=== PATIENT | male | born 1960 | race Caucasian/White ===

== ENCOUNTER → 2020-05-21 16:00 | Outpatient (BNVA) | payer OTHER, SELFPAY | PROVIDERS: Referring Provider Internal Medicine; Visit Provider Orthopaedic Surgery | DX: M25.562 Pain in left knee (principal) | CPT/HCPCS: 73560; 73565 ==

== ENCOUNTER → 2020-05-24 13:14 | Outpatient (BNVA) | payer OTHER, SELFPAY | PROVIDERS: Visit Provider Orthopaedic Surgery | DX: Z11.59 Encounter for screening for other viral diseases (principal); M23.204 Derangement of unspecified medial meniscus due to old tear or injury, left knee | CPT/HCPCS: 87635 ==

== ENCOUNTER 2020-05-30 07:14 | Day surgery (SDC) | payer OTHER, SELFPAY ==
[2020-05-29 11:51] VITALS: BMI 31.1
[2020-05-30] VITALS (11 sets, daily range): BP systolic 95–142; BP diastolic 58–89; PULSE 54–71; RESP 11–20; TEMP 36.1–36.5; O2SAT 93–100
[2020-05-30] MEDS: sodium chloride 0.9% 1,000 ML 30 ML IV (07:53)
--- NOTE | 2020-05-30 09:26 | ANES.PREANE2 ---
Pre-Anesthetic Assessment Pre-Anesthetic Assessment: Height/Weight: Height 1.73 m Weight 92.986 kg Temp Pulse Resp BP Pulse Ox 97.7 F 71 18 142/88 97 05/30/20 07:34 05/30/20 07:34 05/30/20 07:34 05/30/20 07:34 05/30/20 07:34 Preop Diagnosis: Left medial meniscal tear Proposed Procedure: Operation Date: 05/30/20 08:50 Proposed Procedures p Diagnostic Left Knee Arthroscopy 37820 M23.204 USE [facility](Left) - Nick Martin MD Familial anesthetic complications: None Was Beta Thierry taken within 24 hours: N/A Last intake: Intake Last Liquid Date 05/29/20 Last Liquid Time 23:30 Last Solid Date 05/29/20 Last Solid Time 23:30 Social: Social History: No alcohol and No tobacco Exam: Pre-Anes Outpt Exam: alert, oriented x 3, clear to auscultation bilaterally and regular rate & rhythm Airway: Cervical ROM: WNL MP: 3 Dentition: False Anesthetic Plan: ASA status: 1 Anesthesia: General Risk of > 500 ml blood loss (7ml/kg in children): No Meds/Allergies Current Medications: Current Medications Generic Name Dose Route Start Last Admin Trade Name Freq PRN Reason Stop Dose Admin Sodium Chloride 1,000 mls @ 30 ml s/hr 05/30/20 07:30 05/30/20 07:53 Sodium Chloride 0.9% IV 05/31/20 07:29 30 mls/hr .Q24H LIA Administration PFSH Anesthesia PFSH: Social History (Updated 05/21/20 @ 15:36 by Javier Cisneros LPN) Smoking and tobacco status: never smoked Alcohol intake: never Data Anesthesia Cardiac Studies: No Data to Display
--- NOTE | 2020-05-30 09:28 | W.PM.OPSUD ---
Surgery/Procedure H&P Update DATE OF PROCEDURE: May 30, 2020 DATE H&P PERFORMED: 05/21/20 PREOP DIAGNOSIS: Left medial meniscal tear PLANNED PROCEDURE: Operation Date: 05/30/20 08:50 Proposed Procedures p Diagnostic Left Knee Arthroscopy 59151 M23.204 [facility] - Nick Martin MD
[2020-05-30] MEDS: morphine 4 mg/mL SDV 1 mL 8 MG XX (09:47)
--- NOTE | 2020-05-30 10:25 | SUR.PHASEI ---
1023 PATIENT TO PACU FROM OR. RR EVEN AND UNLABORED. SPO2 98% ON SIMPLE MASK AT 8L. ORAL AIRWAY IN PLACE. DRESSING, CDI TO LEFT KNEE WITH CL WRAP IN PLACE. LEFT PEDAL PULSE INTACT.
--- NOTE | 2020-05-30 10:27 | PM.OP ---
Operative Report Date of procedure: May 30, 2020 Pre-op Diagnosis: Left medial and lateral meniscal tear, chondromalacia left knee, history anterior cruciate ligament reconstruction Post-op diagnosis: same Post-op Findings: The patient had degenerative tearing in the central 30% of the medial meniscus. He had a absent posterior horn of his lateral meniscus. Exposed subchondral bone was identified over the lateral tibial plateau and clear thinning was identified over the lateral femoral condyle. He had fibrillation and attenuation of the anterior cruciate ligament graft however it seemed to provide sufficient restraint anterior translation Procedure Done: Arthroscopic partial left medial and lateral meniscectomy Pathology: none sent Surgeon: Nick Martin Anesthesia: General Estimated blood loss (mL): 2 Complications: None Findings: The patient had a previous complete lateral meniscectomy of the posterior horn of the lateral meniscus. He had exposed subchondral bone of the lateral tibial plateau and significant thinning of the cartilage over the lateral femoral condyle. He had degenerative tearing of the central 30% of the medial meniscus and generalized thinning over the medial femoral condyle. His trochlea was healthy but fissures and flaps were seen centrally over the patella Condition: stable Disposition: PACU Procedure: Mr. Blum was taken to the operating room and given a general anesthesia. He is given 2 g of Ancef. His knee was prepped and infiltrated with 30 cc of 0.5% Marcaine with epi and 10 mg of morphine. His knee was draped in the usual fashion. A timeout was performed. The knee was initially entered through a standard medial and lateral portals. Initial attention was paid to the medial meniscus. The leg was provided with a valgus force revealing tearing of the central 30% lateral meniscus. An incisor shaver was introduced followed by a [employer]hew Werewolf probe removing approximately 30 to 40% of the degenerative central portion of the medial meniscus. Areas of fibrillation and fraying were seen over the medial femoral condyle. The condyle was lightly debrided back with the incisor shaver however no exposed subchondral bone was identified. The anterior cruciate ligament was inspected although was found to be slightly fibrillated it was generally intact and on drawer testing provided a restraint with anterior translation. The knee was then placed in a liogah-md-efob position. The lateral meniscus was inspected revealing a absent posterior horn. Small flap from the middle third was abraded back to the rim. The rim was then cleaned up with the Gr [employer] Nephew Werewolf probe. There is no unstable cartilage surrounding the areas of exposed subchondral bone over the lateral tibial plateau. Areas of fibrillation fraying over the lateral femoral condyle were lightly debrided back with the Gr [employer] Nephew Werewolf probe revealing marked thinning of the cartilage but no exposed subchondral bone. The knee was irrigated with saline. Portals were closed with 3-0 Prolene. Sterile dressings were applied. The patient was extubated and taken to recovery room in stable condition.
--- NOTE | 2020-05-30 10:44 | SUR.PHASEI ---
1043 ORAL AIRWAY REMOVED. SPO2 100% ON SIMPLE MASK AT 8L.
--- NOTE | 2020-05-30 11:02 | SUR.PHASEI ---
1100 PATIENT TO OPS. PAIN 2/10. DRESSING, CDI TO LEFT KNEE.
--- NOTE | 2020-05-30 12:45 | ANE.PACU2 ---
Inpatient post-anesthesia follow up: Airway intact: Yes Vital signs: Temperature 97.0 F Pulse Rate 67 Respiratory Rate 18 Blood Pressure 131/89 Pulse Oximetry 95 Oxygen Delivery Me thod Room Air Oxygen Flow Rate 8 Fraction of Inspir ed Oxygen Hydration adequate: Yes Nausea and vomiting: No Pain level: 1 Mental status: Baseline
== END 2020-05-30 12:45 | disposition home or self-care (01) ==
PROVIDERS: Visit Provider Orthopaedic Surgery
PROC: (CPT 29870; principal; 2020-05-30 08:50)
DX: S83.242A Other tear of medial meniscus, current injury, left knee, initial encounter (principal); S83.282A Other tear of lateral meniscus, current injury, left knee, initial encounter; X58.XXXA Exposure to other specified factors, initial encounter
CPT/HCPCS: 29880; 12345; 96365; J0690; J1100; J2250; J2270; J2405; J2704; J3010; J3490; J7030

== ENCOUNTER 2021-11-30 16:48 | Emergency (ER) | payer OTHER, SELFPAY ==
[2021-11-30 17:49] VITALS: BP 152/84; PULSE 81; RESP 14; TEMP 36.6; O2SAT 97; BMI 32.6
--- NOTE | 2021-11-30 18:09 | CTR_ITS ---
PROCEDURE INFORMATION: Exam: CT Head Without Contrast Exam date and time: 11/30/2021 6:21 PM Age: 61 years old Clinical indication: Patient HX: C/O intermittent episodes of dizziness TECHNIQUE: Imaging protocol: Computed tomography of the head without contrast. Radiation optimization: All CT scans at this facility use at least one of these dose optimization techniques: automated exposure control; mA and/or kV adjustment per patient size (includes targeted exams where dose is matched to clinical indication); or iterative reconstruction. COMPARISON: No relevant prior studies available. RADIATION DOSE METRICS: Total DLP (mGy-cm): 833.4 FINDINGS: Brain: There is no acute intracranial hemorrhage or abnormal extra-axial fluid collection identified. There is no intracranial mass effect or shift of midline structures. The morales-white differentiation is preserved throughout. Cerebral ventricles: There is no sulcal or ventricular effacement. The basilar cisterns are open. No hydrocephalus. Paranasal sinuses: There is mild sinus mucosal disease, with no air-fluid level identified. Mastoid air cells: There is no mastoid effusion detected. Vasculature: Atherosclerotic vascular disease is noted at the level of the skull base. Bones/joints: No calvarial fracture or destructive osseous lesions are seen. Soft tissues: Unremarkable. CT/CT head wo con* [id number] IMPRESSION: No acute intracranial pathology identified by CT.
--- NOTE | 2021-11-30 18:09 | ED_ITS ---
HPI - Dizziness General: Chief Complaint: Dizziness Stated Complaint: Asking for a CT Scan Time Seen by Provider: 11/30/21 17:59 History of Present Illness: HPI Narrative: Patient is a 61-year-old male comes to the ED with episodes of dizziness. Symptoms have been going on now for the past 3 weeks. Symptoms occur when he moves his head or puts his head in a certain position. When dizziness happens the episodes are brief and only last for couple minutes and he describes it as the room is spinning. He reports having multiple brief episodes of daily. Sometimes during these episodes he will have just a mild headache, but not always. He saw his PCP at the [facility] and they told him that he needs to get head CT scan and send him home with meclizine which has not helped. Patient is not having any dizziness here in the ED. denies any chest pain, shortness of breath, nausea/vomiting vision changes, numbness or tingling to 1 side of his body or any weakness to 1 side of his body. Associated symptoms: Denies chest pain, chills, headache(s), nausea, nasal congestion, palpitations, syncope or vomiting Associated neuro symptoms: Deny numbness in extremities Review of Systems Const: Denies: fever(s), chills or fatigue Eyes: Denies: change in vision or eye discomfort ENMT: Denies: throat pain, odynophagia, nasal discharge or nasal congestion Card: Denies: chest pain, palpitations, edema, swelling of feet/ankles, syncope, dyspnea on exertion or orthopnea Resp: Denies: dyspnea, productive cough or non-productive cough GI: Denies: abdominal pain, nausea, vomiting, diarrhea, constipation or hematochezia : Denies: flank pain, difficulty urinating, dysuria or hematuria Musc: Denies: neck pain, back pain or extremity swelling Skin/Breast: Denies: rash or new lesions Neuro: Reports: vertigo; Denies: headache(s), numbness in extremities or weakness in extremities PFS ED PFSH: Medical History No pertinent family history Surgical History No pertinent past surgical history Social History Smoking and tobacco status: never smoked Alcohol intake: never Physical Exam Const: COMMON NORMALS: no acute distress, patient oriented x3 and alert GENERAL APPEARANCE: cooperative and comfortable HENMT: COMMON NORMALS: normocephalic HEAD & SCALP: normocephalic MOUTH: Normal oral and palatal mucosa present THROAT: posterior oropharynx normal and uvula midline Eye: COMMON NORMALS: Equal, round and reactive pupils present, EOMs intact bilaterally and conjunctivae normal CONJUNCTIVA: Yes conjunctivae normal PUPIL: Yes Equal, round and reactive pupils present Neck/C-Spine: COMMON NORMALS: supple GENERAL: Yes normal visual inspection Resp: COMMON NORMALS: normal respiratory effort, No retractions, No use of accessory muscles and clear to auscultation bilaterally AUSCULTATION: clear to auscultation bilaterally Cardio: COMMON NORMALS: regular rate, regular rhythm, S1 normal heart sound present, S2 normal heart sound present, No gallops present (Cardio), No clicks present (Cardio), No murmurs present (Cardio) and Peripheral pulses 2+ throughout RATE: regular rate RHYTHM: regular rhythm HEART SOUNDS: S1 normal heart sound present and S2 normal heart sound present PERIPHERAL PULSES: Peripheral pulses 2+ throughout GI: COMMON NORMALS: Normal to inspection, nondistended, normoactive bowel thiago nds present, Soft to palpation, non-tender and no masses PALPATION: Yes Soft to palpation : COMMON NORMALS: Yes no CVA tenderness BLADDER/KIDNEY EXAM: Yes no CVA tenderness Back/Pelvis: COMMON NORMALS: no CVA tenderness Extremity: COMMON NORMALS: normal to inspection Neuro: COMMON NORMALS: patient oriented x3, CN's II-XII intact bilaterally, moves all extremities, no focal motor deficits and no sensory deficits noted SENSORIUM/ORIENTATION: Yes alert SENSORY EXAM: Yes extremities (intact) MOTOR EXAM: 5/5 motor strength present throughout Skin: GENERAL SKIN EXAM: dry skin Course Vital Signs: Vital signs: Vital Signs Temperature 97.8 F 11/30/21 17:49 Pulse Rate 81 11/30/21 17:49 Respiratory Rate 16 11/30/21 19:49 Blood Pressure 152/84 11/30/21 17:49 Pulse Oximetry 97 11/30/21 17:49 [facility] - Dizziness Medical Decision Making Patient is a 61-year-old male comes to the ED with episodes of dizziness that have been going on for the past 3 weeks. Episodes of dizziness are brief and occur when he puts his head in a certain position. They only last for maybe 2 to 3 minutes at the most and he describes the dizziness as room spinning. Denies any other symptoms such as chest pain, syncope or neurological deficits. He is not having any active dizziness here in the ED. Vitals are stable and exam is benign. Patient appears in no acute distress or pain. No neurodeficits noted. CT of head showed no acute findings. Given patient's history and exam he appears to be suffering from benign paroxysmal positional vertigo. He was stable for discharge home and I sent him home with instructions on exercises and movements he can do to help with episodes of BPPV. Return to ED precautions given. Told to follow-up with his PCP within the next week for reevaluation. Patient understood and agreed with plan. Lab Data Radiology Impressions Head CT 11/30/21 18:09 IMPRESSION: No acute intracranial pathology identified by CT. Discharge Plan Discharge Patient Disposition: Home Clinical Impression: Benign paroxysmal positional vertigo Qualifiers: Laterality: unspecified laterality Qualified Code(s): H81.10 - Benign paroxysmal vertigo, unspecified ear Condition: Stable Prescriptions: No Action No Known Home Medications 0RF hydrocodone-acetaminophen 5-325 mg tablet 1 tab PO Q4H Qty: 30 0RF Discharge Orders: Discharge ED (Routine); Ordered 11/30/21 Ordered By: Malik Doss Discharge Diet: Regular Discharge Activity: Resume usual activity Patient Instructions: Benign Paroxysmal Positional Vertigo (DC) Activity Restrictions/Additional Instructions: Follow-up with medical provider as directed in the next 3 to 5 days for reevaluation. Continue taking all home medications as previously prescribed. Return to the ER or your medical provider if condition worsens. Please read and understand discharge instructions. Thank you for choosing [facility] for your healthcare needs today. Please realize this is an emergency room and that we are providing you with a medical screening exam and this may not be complete and all inclusive of all the testing and or work up that you may need to determine your ailment or severity of your illness. It is very important that you follow up as instructed or that you return to the Emergency Department should you have concerns or if your condition changes or worsens in any way. Coding Level of Care Code ED [employer] Librarian for Phil Ortiz Exam Comprehensive
[2021-11-30 19:49] VITALS: RESP 16
== END 2021-11-30 19:50 | disposition home or self-care (01) ==
PROVIDERS: Emergency Provider Physician Assistant
DX: H81.10 Benign paroxysmal vertigo, unspecified ear (principal)
CPT/HCPCS: 70450; 99282

== ENCOUNTER 2023-07-29 13:13 | Emergency (ER) | payer OTHER, SELFPAY ==
[2023-07-29 13:43] VITALS: BP 136/82; PULSE 66; TEMP 36.7; O2SAT 97; BMI 31.1
--- NOTE | 2023-07-29 13:51 | XRR_ITS ---
PROCEDURE INFORMATION: Exam: XR Right Hand Exam date and time: 07/29/2023 3:07 PM Age: 62 years old Clinical indication: Pain; Hand; Right TECHNIQUE: Imaging protocol: Radiologic exam of the right hand. Views: 3 or more views. COMPARISON: No relevant prior studies available. FINDINGS: Bones/joints: No fracture or dislocation. Mild degenerative changes. Soft tissues: No acute findings. XR/XR hand RT min 3V* [id number] IMPRESSION: Mild degenerative changes without acute findings.
--- NOTE | 2023-07-29 14:56 | W.ED.EXTPRO ---
HPI - Extremity Problem General: Chief complaint: Extremity Problem,Nontraumatic Stated complaint: va sent, thum locking up/sore Time Seen by Provider: 07/29/23 14:56 History of Present Illness: 62-year-old male patient was referred to the emergency room from the [facility] medical office for concerns of IP joint of the right thumb locking up. Patient appears nontoxic. Patient appears in no acute distress. Patient denies any chronic medical problems or routine medicines. Review of Systems General: Reports: 10 or more systems reviewed and unremarkable except in HPI and below Musc: Reports: joint pain (Right hand IP joint thumb) [facility] ED PFSH: Medical History No pertinent family history Surgical History No pertinent past surgical history Social History Smoking and tobacco/nicotine status: never used tobacco/nicotine Alcohol intake: never Substance/Drug Use: never Physical Exam Const: COMMON NORMALS: alert HENMT: COMMON NORMALS: atraumatic HEAD & SCALP: atraumatic Neck/C-Spine: COMMON NORMALS: full ROM Resp: COMMON NORMALS: normal respiratory effort Cardio: COMMON NORMALS: regular rate RATE: regular rate GI: COMMON NORMALS: non-tender Extremity: RIGHT UPPER EXTREMITY: Yes hand & digits (IP joint catches through range of motion.) Right hand and digits: Yes inspection (No redness or induration or significant swelling), Yes palpation, Yes ROM exam and Yes neurovascular exam Neuro: SENSORIUM/ORIENTATION: Yes alert Skin: COMMON NORMALS: turgor normal GENERAL SKIN EXAM: turgor normal Course Vital Signs: Vital signs: Vital Signs Temperature 98.1 F 07/29/23 13:43 Pulse Rate 66 07/29/23 13:43 Blood Pressure 136/82 07/29/23 13:43 Pulse Oximetry 97 07/29/23 13:43 Oxygen Delivery Me thod Room Air 07/29/23 13:43 MDM - Extremity (Nontraumatic) Medical Decision Making Patient comes in today for evaluation of right interphalanx joint due to locking during range of motion. On exam there is no redness or inflammation of the joint noted. Cap refill is intact. Sensation is intact. Patient does have a crepitus in the joint. Differential diagnosis includes but not limited to tendinitis, degenerative joint disease of the IP joint of the thumb, tenosynovitis. No signs of injury or illness is noted. X-ray of the hand notes degenerative changes in the joints. Reviewed exam with patient recommended follow-up with surgeon for further evaluation and treatment. Patient reported understanding agreed to plan. Patient be placed on naproxen for pain and inflammation. Lab Data Radiology Impressions Hand X-Ray 07/29/23 13:51 IMPRESSION: Mild degenerative changes without acute findings. All radiology interpretation(s) finalized by discharge Discharge Plan Discharge Patient Disposition: Home Clinical Impression: Thumb joint locking Condition: Stable Prescriptions: New naproxen 500 mg tablet 500 mg PO BID Qty: 30 0RF No Action hydrocodone-acetaminophen 5-325 mg tablet 1 tab PO Q4H Qty: 30 0RF Discharge Orders: Discharge ED (Routine); Ordered 07/29/23 Ordered By: Ramon Larson Discharge Diet: Usual diet Discharge Activity: Increase activity as tolerated Patient Instructions: Musculoskeletal Pain (ED) Activity Restrictions/Additional Instructions: Take naproxen 500 mg 2 times daily to help with pain and inflammation of the joint. Drink plenty of water and fluids. Use heat to the joint to help with discomfort. Gentle range of motion of the joint. Avoid forcing the joint. Case management will contact you regarding follow-up appointment with orthopedist office for further evaluation and treatment. Return to ED for new concerns. Coding Level of Care Code ED Call Center Dispatcher for Phil Ortiz
--- NOTE | 2023-07-29 15:14 | DCPLANNER ---
Message was sent to ortho on 07/29/23 at 4034. Clinic to contact patient.
== END 2023-07-29 15:35 | disposition home or self-care (01) ==
PROVIDERS: Emergency Provider Nurse Practitioner Family
DX: M24.841 Other specific joint derangements of right hand, not elsewhere classified (principal)
CPT/HCPCS: 73130; 99283

== ENCOUNTER 2024-09-25 09:06 | Inpatient (IN) | payer OTHER, SELFPAY ==
[2024-09-25] VITALS (9 sets, daily range): BP systolic 125–142; BP diastolic 74–99; PULSE 62–96; RESP 15–20; TEMP 36.4–37; O2SAT 94–97; BMI 31.1
--- NOTE | 2024-09-25 09:27 | XRR_ITS ---
PROCEDURE INFORMATION: Exam: XR Chest Exam date and time: 09/25/2024 9:38 AM Age: 63 years old Clinical indication: Cough and dyspnea and shortness of breath; Additional info: Dyspnea/cough TECHNIQUE: Imaging protocol: Radiologic exam of the chest. Views: 1 view. COMPARISON: No relevant prior studies available. FINDINGS: Lungs: Unremarkable. No consolidation. Pleural spaces: Unremarkable. No pleural effusion. No pneumothorax. Heart/Mediastinum: Unremarkable. No cardiomegaly. Bones/joints: Unremarkable. XR/XR chest 1V portable [id number] IMPRESSION: No acute findings.
--- NOTE | 2024-09-25 09:27 | ECG_ITS ---
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
--- NOTE | 2024-09-25 09:28 | ED_ITS ---
HPI - Chest Pain 2 General: Chief Complaint: Chest Pain Stated Complaint: sob, cp, sent from [place] Time Seen by Provider: 09/25/24 09:16 History of Present Illness: 61-year-old male presents emergency room with complaints of shortness of breath and chest pressure it has been ongoing for a month. He has no known history of coronary disease no history of any chronic respiratory disease he does not smoke no history of DVT or PE. No hemoptysis no productive cough no fever sweats or chills. He describes the chest sensation as being a pressure that does not radiate. He gets it most often with exertion. It is relieved by rest. Associated symptoms: Reports dyspnea; Deny abdominal pain or fever(s) Related Data Home Medications ?Medication ?Instructions ?Recorded ?Confirmed No Known Home Medications 09/25/2409/03 Allergies Allergy/AdvReac Type Severity Reaction Status Date / Time bee venom protein (honey bee) Allergy Unknown Verified 09/25/24 09:20 peppermint Allergy Unknown Verified 09/25/24 09:20 Review of Systems 2 Const: Denies: fever(s) or chills Card: Reports: chest pain Resp: Reports: dyspnea GI: Denies: abdominal pain : Denies: dysuria, urinary frequency or urinary urgency Musc: Denies: neck pain or back pain Skin/Breast: Denies: rash PFSH ED 2 PFSH: Medical History No pertinent family history Surgical History No pertinent past surgical history Social History Smoking and tobacco/nicotine status: never used tobacco/nicotine Alcohol intake: never Substance/Drug Use: never Physical Exam 2 Const: GENERAL APPEARANCE: cooperative ORIENTATION/CONSCIOUSNESS: Yes awake, Yes oriented to person, Yes oriented to place and Yes oriented to time HENMT: COMMON NORMALS: normocephalic, atraumatic and hearing grossly normal bilaterally HEAD & SCALP: normocephalic and atraumatic Resp: COMMON NORMALS: normal respiratory effort, No retractions, No use of accessory muscles and clear to auscultation bilaterally AUSCULTATION: clear to auscultation bilaterally Cardio: COMMON NORMALS: regular rate, regular rhythm and No murmurs present (Cardio) RATE: regular rate RHYTHM: regular rhythm GI: COMMON NORMALS: Soft to palpation and No hepatosplenomegaly present A USCULTATION: Yes normoactive bowel sounds PALPATION: Yes Soft to palpation, No Tenderness to palpation present (GI), No Guarding due to palpation present (GI) and Yes No hepatosplenomegaly present Extremity: COMMON NORMALS: normal to inspection, capillary refill normal, no clubbing, cyanosis or edema, no calf tenderness and no pedal edema Neuro: SENSORIUM/ORIENTATION: Yes oriented to person, Yes oriented to place and Yes oriented to time Skin: COMMON NORMALS: no rashes or lesions noted GENERAL SKIN EXAM: no rashes or lesions noted Course 2 Vital Signs: Vital signs: Vital Signs Temperature 98.2 F 09/25/24 09:15 Pulse Rate 64 09/25/24 14:08 Respiratory Rate 15 09/25/24 14:08 Blood Pressure 128/99 09/25/24 14:08 Pulse Oximetry 97 09/25/24 14:08 Oxygen Delivery Me thod Room Air 09/25/24 14:08 MDM - Chest Pain Medical Decision Making Patient having escalating angina she is noticing increasing shortness of breath chest discomfort relieved by rest exacerbated by exertion. It has been progressively more noticeable decreasing exercise tolerance when he does exert himself he is getting chest discomfort that he rates up to an 8 out of 10. He has no known history of heart disease does have some risk factors. EKG showed nonspecific ST changes but nothing acute he is not currently having any chest pain at this time his troponins trended negative. However given his risk factors and his description of very classic cardiac count sounding symptoms that have been escalating recommend that we place him on observation consult cardiology. Discussed with hospitalist and radiological metallurgist orders written Medical Records I reviewed the patient's medical records. Lab Data I reviewed the patient's lab results. 09/25/24 09:39 09/25/24 09:39 Radiology Impressions Chest X-Ray 09/25/24 09:27 IMPRESSION: No acute findings. Laboratory Results WBC 7.55 10^3/uL (3.29-11.43) 09/25/24 09:39 RBC 5.85 10^6/uL (3.85-5.65) H 09/25/24 09:39 Hgb 15.30 g/dL (11.27-16.99) 09/25/24 09:39 Hct 47.3 % (37-53) 09/25/24 09:39 MCV 80.9 fl (82-101) L 09/25/24 09:39 MCH 26.2 pg (27-33) L 09/25/24 09:39 MCHC 32.3 g/dL (30-55) 09/25/24 09:39 RDW 14.2 % (12.1-15.1) 09/25/24 09:39 Plt Count 183 10^3/cmm (157-399) 09/25/24 09:39 MPV 7.8 fL (7.4-10.4) 09/25/24 09:39 Neut % (Auto) 69.2 % 09/25/24 09:39 Lymph % (Auto) 18.3 % 09/25/24 09:39 [place] % (Auto) 10.3 % 09/25/24 09:39 Eos % (Auto) 0.9 % 09/25/24 09:39 Baso % (Auto) 0.9 % 09/25/24 09:39 Neut # (Auto) 5.22 10^3/uL (1.8-7.7) 09/25/24 09:39 Lymph # (Auto) 1.4 10^3/uL (0.8-4.8) 09/25/24 09:39 [place] # (Auto) 0.8 10^3/uL (0.2-0.9) 09/25/24 09:39 Eos # (Auto) 0.1 10^3/uL (0.0-0.8) 09/25/24 09:39 Baso # (Auto) 0.1 10^3/uL (0.0-0.1) 09/25/24 09:39 Nucleated RBC % (auto) 0 % 09/25/24 09:39 Nucleated RBCs # 0.0 /100WBC 09/25/24 09:39 Sodium 137 mmol/L (136-145) 09/25/24 09:39 Potassium 4.2 mmol/L (3.5-5.1) 09/25/24 09:39 Chloride 103 mmol/L (98-107) 09/25/24 09:39 Carbon Dioxide 24 mmol/L (22-29) 09/25/24 09:39 Anion Gap 14.2 (5-19) 09/25/24 09:39 BUN 12 mg/dL (8-23) 09/25/24 09:39 Creatinine 0.8 mg/dL (0.7-1.2) 09/25/24 09:39 GFR Calculation 98.0 mL/min (90-130) 09/25/24 09:39 Glucose 113 mg/dL (65-115) 09/25/24 09:39 Calculated Osmolality 285 mOsm/kg (285-295) 09/25/24 09:39 Calcium 8.8 mg/dL (8.5-10.5) 09/25/24 09:39 Total Bilirubin 0.3 mg/dL (0.15-1.2) 09/25/24 09:39 AST 10 U/L (0-40) 09/25/24 09:39 ALT 17 U/L (0-41) 09/25/24 09:39 Alkaline Phosphatase 87 U/L (40-130) 09/25/24 09:39 Troponin T Baseline 11 ng/L (0-15) 09/25/24 09:39 Troponin T 120 Minute 8.51 ng/L (0-15) 09/25/24 11:30 Delta Troponin T -2.49 ABS# (0-10) L 09/25/24 11:30 Total Protein 6.3 g/dL (6.6-8.7) L 09/25/24 09:39 Albumin 3.9 g/dL (3.5-5.2) 09/25/24 09:39 Globulin 2.4 g/dL (1.3-4.6) 09/25/24 09:39 Influenza A (PCR) Negative (Negative) 09/25/24 09:42 Influenza Type B (PCR) Negative (Negative) 09/25/24 09:42 RSV (PCR) Negative (Negative) 09/25/24 09:42 SARS-CoV-2 (PCR) Negative (Negative) 09/25/24 09:42 All radiology interpretation(s) finalized by discharge Discharge Plan Discharge Patient Disposition: Placed in Observation Clinical Impression: Stable angina Condition: Stable Prescriptions: No Action No Known Home Medications Print Language: Comoran Coding Level of Care Code ED Meatcutter for Phil Ortiz
[2024-09-25 09:45] LABS: Basophils # 0.1 10^3/uL (0.0-0.1); Basophils % 0.9 %; Eosinophils # 0.1 10^3/uL (0.0-0.8); Eosinophils % 0.9 %; Hematocrit 47.3 % (37-53); Lymphocytes # 1.4 10^3/uL (0.8-4.8); Lymphocytes % 18.3 %; Mean Corpuscular HGB Conc 32.3 g/dL (30-55); Mean Corpuscular Hemoglobin 26.2 pg (27-33); Mean Corpuscular Volume 80.9 fl (82-101); Mean Platelet Volume 7.8 fL (7.4-10.4); Monocytes # 0.8 10^3/uL (0.2-0.9); Monocytes % 10.3 %; Neutrophils # 5.22 10^3/uL (1.8-7.7); Neutrophils % 69.2 %; Nucleated Red Blood Cells % 0 %; Platelet Count 183 10^3/cmm (157-399); Red Blood Count 5.85 10^6/uL (3.85-5.65); Red Cell Distribution Width 14.2 % (12.1-15.1); White Blood Count 7.55 10^3/uL (3.29-11.43)
[2024-09-25 10:07] LABS: Alanine Aminotransferase 17 U/L (0-41); Albumin Level 3.9 g/dL (3.5-5.2); Alkaline Phosphatase 87 U/L (40-130); Anion Gap 14.2 (5-19); Aspartate Amino Transferase 10 U/L (0-40); Blood Urea Nitrogen 12 mg/dL (8-23); Calcium 8.8 mg/dL (8.5-10.5); Carbon Dioxide 24 mmol/L (22-29); Chloride 103 mmol/L (98-107); Creatinine Clr Calc Pharmacy 105.9424; Globulin 2.4 g/dL (1.3-4.6); Glucose 113 mg/dL (65-115); Osmolality Calculated 285 mOsm/kg (285-295); Potassium 4.2 mmol/L (3.5-5.1); Sodium 137 mmol/L (136-145); Total Bilirubin 0.3 mg/dL (0.15-1.2); Total Protein 6.3 g/dL (6.6-8.7)
[2024-09-25 10:09] LABS: Troponin(5th) Baseline 11 ng/L (0-15)
[2024-09-25 10:24] LABS: Influenza A NEGATIVE (Negative); Influenza B NEGATIVE (Negative); Respiratory Syncytial Virus Ce NEGATIVE (Negative); SARS-CoV-2 PCR NEGATIVE (Negative)
--- NOTE | 2024-09-25 11:27 | ECG_ITS ---
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
[2024-09-25 11:58] LABS: Troponin 5 2HR 8.51 ng/L (0-15)
[2024-09-25 11:59] LABS: Troponin 5 2HR Delta -2.49 ABS# (0-10)
--- NOTE | 2024-09-25 14:30 | USCV_ITS ---
Jitendra Blum Age: 63 Gender: M : 1960 Exam Date: 09/25/2024 15:50 Ordering Phys: Chemo Warren MD Technologist: USR [place]am [place] [facility] [place] Indication: DVT HISTORY: DVT. PROCEDURES: Venous duplex imaging was performed in bilateral lower extremities. Bilaterally, the common femoral, superficial femoral, profunda femoral, popliteal, posterior tibial, greater saphenous veins, and the peroneal trunk were identified and interrogated in the standard fashion. These veins were found to be easily compressible with spontaneous blood flow. No evidence of insufficiency or thrombus noted. Serial compression, augmentation maneuvers, and spectral Doppler flow evaluation were performed. FINDINGS: No evidence of DVT seen in any vessel visualized at this time. CONCLUSIONS No evidence of right lower extremity DVT. No evidence of left lower extremity DVT. Kale Toussaint MD (Electronically Signed) Final Date: 25 September 2024 17:12 S
--- NOTE | 2024-09-25 14:36 | PM.HP ---
Providers/Chief Complaint Admitting Physician: Chemo Warren MD Chief Complaint: sob, cp, sent from [place] History of Present Illness Jitendra Blum is a 63 year old male with a past medical history of right knee surgery, no hypertension no hyperlipidemia, no cardiovascular disease, no history of strokes, no history of diabetes, who presents [facility] for complaints of chest pain and shortness of breath. Patient tells me that he had his knee surgery back in June, he has been attending physical therapy, he tells me with physical therapy with exertion he has been experiencing increased shortness of breath and chest pain with exertion, improves with rest, no calf pain, no calf swelling no hemoptysis, he tells me that the chest pain has been increasing with frequency and intensity with exertion improving with rest, no rest pain Review of Systems Card: Reports: chest pain Resp: Reports: dyspnea Medications/Allergies Home Medications ?Medication ?Instructions ?Recorded ?Confirmed ?Last Taken ?Type No Known Home Medications 09/25/24 09/25/24 Unknown History Allergies Allergy/AdvReac Type Severity Reaction Status Date / Time bee venom protein (honey bee) Allergy Unknown Verified 09/25/24 09:20 peppermint Allergy Unknown Verified 09/25/24 09:20 PFSH Acute PFSH: Medical History No pertinent family history Surgical History No pertinent past surgical history Social History Smoking and tobacco/nicotine status: never used tobacco/nicotine Alcohol intake: never Substance/Drug Use: never Vitals/I&O/Wt Last Vital Signs Temp 98.2 F 09/25/24 09:15 Pulse 64 09/25/24 14:08 Resp 15 09/25/24 14:08 BP 128/99 09/25/24 14:08 Pulse Ox 97 09/25/24 14:08 O2 Del Method Room Air 09/25/24 14:08 Weight last 48 hrs Weight 92.986 kg Physical Exam Const: COMMON NORMALS: no acute distress and patient oriented x3 Eye: COMMON NORMALS: Equal, round and reactive pupils present and EOMs intact bilaterally Neck/C-Spine: COMMON NORMALS: no JVD Resp: COMMON NORMALS: normal respiratory effort, No retractions, No use of accessory muscles and clear to auscultation bilaterally AUSCULTATION: clear to auscultation bilaterally Cardio: COMMON NORMALS: regular rate, regular rhythm, S1 normal heart sound present and S2 normal heart sound present RATE: regular rate RHYTHM: regular rhythm HEART SOUNDS: S1 normal heart sound present and S2 normal heart sound present GI: COMMON NORMALS: Normal to inspection, nondistended, normoactive bowel sounds present, Soft to palpation and non-tender Extremity: COMMON NORMALS: no calf tenderness and no pedal edema Neuro: COMMON NORMALS: patient oriented x3, CN's II-XII intact bilaterally and moves all extremities Psych: COMMON NORMALS: mental status grossly normal Data 09/25/24 09:39 09/25/24 09:39 A&P Assessment and plan (1) Chest pain: Plan Chest pain -Serial EKGs, short troponins, telemetry monitoring -Aspirin, statin, Coreg -Cardiac echo -Drug screen, alcohol screen, D-dimer -Venous ultrasound -Full code -Lovenox for dvt prophylaxis PDMP PDMP Reviewed: Not Reviewed Attestations Medical Necessity Statement*: Patient requires hospitalization, inpatient, greater than 2 midnights for chest pain Diagnoses Chest pain R07.9
--- NOTE | 2024-09-25 14:55 | USCV_ITS ---
Jitendra Blum Age: 63 Gender: M : 1960 Exam Date: 09/25/2024 19:26 Ordering Phys: Chemo Warren MD Technologist: BRAYDEN [place] [facility] [place]: sob BP: 142 / 92 HR: 59 Rhythm: Sinus Technical Quality: Adequate MEASUREMENTS (Male / Female) Normal Values 2D ECHO LV Diastolic Diameter PLAX 3.9 cm 4.2 - 5.9 / 3.9 - 5.3 cm IVS Diastolic Thickness 1.7 cm 0.6 - 1.0 / 0.6 - 0.9 cm IVS Systolic Thickness 2.1 cm LVPW Diastolic Thickness 1.4 cm 0.6 - 1.0 / 0.6 - 0.9 cm LVPW Systolic Thickness 1.5 cm LVOT Diameter 1.9 cm LV Ejection Fraction 2D Teich 62.9 % LV Ejection Fraction MOD 4C 61.4 % LV Ejection Fraction MOD 2C 62.9 % LV Ejection Fraction 2C AL 64.9 % LA Diameter 4.0 cm Aorta at Sinotubular Diameter 3.4 cm IVC Diameter 1.8 cm M-MODE LA Ao Ratio MM 1.3 AV Cusp Separation MM 2.1 cm DOPPLER AV Peak Velocity 133.0 cm/s AV Area Cont Eq vti 2.0 cm squared AV Area Cont Eq pk 1.8 cm squared MV Peak Velocity 93.0 cm/s MV Area PHT 2.5 cm squared Mitral E to A Ratio 0.7 TR Peak Velocity 226.0 cm/s TR Peak Gradient 20.4 mmHg TV Peak E Velocity 41.0 cm/s PV Peak Velocity 133.0 cm/s FINDINGS Left Ventricle Left ventricle is normal in size. LV systolic function is normal with EF 55-60%. No regional wall motion abnormalities are seen. Grade 1 diastolic dysfunction Right Ventricle Normal in size and function Right Atrium Normal in size Left Atrium Normal in size Mitral Valve Structurally normal mitral valve. Trace mitral regurgitation. Aortic Valve Structurally normal aortic valve. No significant stenosis or regurgitation. Tricuspid Valve Mild tricuspid regurgitation. Pulmonary artery systolic pressure is normal. Pulmonic Valve Not well visualized Pericardium Normal Aorta Normal in size IVC Appears to be normal CONCLUSIONS LV systolic function is normal with EF of 55-60% Grade 1 diastolic dysfunction Trace mitral regurgitation Mild tricuspid regurgitation No comparison studies are available. Tripp Sánchez MD (Electronically Signed) Final Date: 26 September 2024 07:16 S
--- NOTE | 2024-09-25 15:08 | P.CONIM_ITS ---
<Statement entered by Tripp Sánchez M.D - 09/26/24 23:02> Patient was evaluated and cared for in conjunction with an advanced practice practitioner. I personally examined the patient and reviewed the chart and all pertinent data including imaging, telemetry, and laboratory results. I discussed the patient in detail with the advanced practice practitioner. Please see their note for complete consult note, results and agreed upon plan of care for the patient. GENERAL: Patient is alert and oriented HEART: Regular S1 and S2 LUNGS: Clear to auscultation bilaterally EXTREMITIES: Lower extremities with no edema Unstable angina Patient has unstable angina. Will proceed with coronary angiogram with possible PCI. NPO past midnight Thank you for involving us with care of this patient. Please call with questions Providers/Reason For Consult 2 Consulting Physician/Specialty*: Dr. Sánchez Reason for Consult*: Unstable angina Requesting Physician: Dr. Mata History of Present Illness History of Present Illness Jitendra Blum is a 63 year old male with a history of shortness of breath and chest pressure on exertion relieved with rest. He states this has been going on for about a month. He has no history of coronary disease or respiratory disease. He is a former smoker many years ago. No history of blood clots. No fever chills or bodyaches. He states that lately he has been getting progressive shortness of breath and chest pressure every time he exerts himself with minimal activity. He has no known family history of heart disease. He denies any significant personal health history. Denies diabetes, cholesterol issues, or hypertension. Viral panel was negative. Troponins are negative so far. We are awaiting the 6 hour troponin. He will be getting a d-dimer and lower extremity doppler to rule out DVT. EKG showed sinus rhythm without acute ST elevation or T wave abnormalities. Chest x-ray was unremarkable. He has an O2 sat of 96% on room air. Review of Systems 2 Narrative: Consitutional: denies fever, chills, body aches, or changes in appetite, denies abnormal weight loss Eyes: Denies changes in vision Card: Reports chest pressure at the center of the chest on exertion relieved with rest, palpitations, irregular heart rhythm, edema, syncope, shortness of breath, orthopnea, leg pain with exertion Resp: Reports shortness of breath on exertion relieved with rest, denies hemoptysis, denies cough GI: denies abdominal pain, denies nausea or voimting, denies blood in stool : denies blood in urine, denies dysuria Musc: Denies extremity pain, denies limited range of motion or recent injury Skin: Denies rash, lesions, or wounds, denies changes to skin color Neuro: Denies nubmness in extremities, h/a, s/s of stroke Gonzalo: Denies easy bruiding/bleeding Medications/Allergies Home Medications ?Medication ?Instructions ?Recorded ?Confirmed ?Last Taken ?Type No Known Home Medications 09/25/2409/03 Unknown History Allergies Allergy/AdvReac Type Severity Reaction Status Date / Time bee venom protein (honey bee) Allergy Unknown Verified 09/25/24 09:20 peppermint Allergy Unknown Verified 09/25/24 09:20 PFSH Acute 2 PFSH: Medical History No pertinent family history Surgical History No pertinent past surgical history Social History Smoking and tobacco/nicotine status: never used tobacco/nicotine Alcohol intake: never Substance/Drug Use: never Vitals/I&O/Wt Last Vital Signs Temp 98.2 F 09/25/24 09:15 Pulse 64 09/25/24 14:08 Resp 15 09/25/24 14:08 BP 128/99 09/25/24 14:08 Pulse Ox 97 09/25/24 14:08 O2 Del Method Room Air 09/25/24 14:08 Weight last 48 hrs Weight 205 lb Physical Exam 2 Narrative: General: No apparent distress, healthy appearing, well nourished HENMT: normoceophalic Neck: No carotid bruit bilaterally Muskuloskeletal: Full ROM Lymphatic: no lymphedema noted Respiratory: Normal respiratory effort, clear to auscultation bilaterally throughout all lung landeros, no use of accessory muscles Cardio: No JVD, regular rate, regular rhythm, S1 S2 normal, no murmurs, peripheral pulses 2+ radial palpated bilaterally GI: Normal to inspection, nondistended Extremities: Full ROM, normal, normal capillary refill, no cyanosis or edema Neuro: Alert and oriented x4, no focal motor deficits Psych: Affect normal, denies suicidal ideation, mental status grossly normal Skin: No rashes or lesions noted, no wounds Data 09/25/24 09:39 09/25/24 09:39 A&P Assessment and plan (1) Chest pain: Qualifiers: Chest pain type: other chest pain Qualified Code(s): R07.89 - Other chest pain (2) Unstable angina: Plan Patient has s/s of typical chest pain. Because of his untable angina, we recommend proceding with coronary angiogram once DVT/PE is ruled out. We will tentatively place him on the schedule for tomorrow morning. Patient is agreeable to this. Thank you, Dr. Warren, for allowing us to care for this very pleasant 63 year old gentleman. PDMP PDMP Reviewed: Not Reviewed Consult Attestations 2 Medical Necessity Statement: Deferred to primary. Coding Level of Care Code Acute Code for Chg Fwd Diagnoses Other chest pain R07.89 Chest pain type: other chest pain Unstable angina I20.0
--- NOTE | 2024-09-25 15:27 | ECG_ITS ---
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
[2024-09-25 15:28] LABS: Chol HDL Ratio 4.37 mg/dL (1.0-5.00); Cholesterol 188 mg/dL (0-200); HDL Cholesterol 43 mg/dL (60-100); LDL Cholesterol Calculated 119 mg/dL (50-129); LDL HDL Ratio 2.77 RATIO (0.00-3.22); NT Pro B Type Natriuretic Pept < 36 pg/mL (0-125); Thyroid Stimulating Hormone 2.24 uIU/mL (0.27-4.20); Triglycerides 131 mg/dL (0-150)
[2024-09-25 15:30] LABS: Alcohol Level < 10 mg/dL (0-10)
--- OUTSIDE RECORDS SUMMARY | 2024-09-25 15:30 | XMS_ITS | Encounter Summary ---
Author Name [facility] Organization [facility] Address [address], [place] [address] Care Team Providers Care Manager Ccu Name Role Phone COLLINSROLOLORENA Primary Care Provider Unavailabl e Selected Encounter This section includes the information on record at ID for the Encounter. Date/Time Encounter Type Encounter Description Reason Provider Source Aug 16, 2024 08:30 AM OFFICE O/P EST HI 40 MIN PRIMARY CARE/MEDICINE ICD-10-CM M25.561 Pain in right knee LORENA COLLINS IHE Encounter Template Text not used by ID Assessments - Encounter Diagnoses This section includes the primary and secondary diagnoses documented for the Encounter. Date/Time Primary/Secondary Diagnosis Diagnosis Name Provider Source Aug 16, 2024 08:58 AM PRIMARY Pain in right knee KARINALORENA [facility] Aug 16, 2024 08:58 AM SECONDARY Gastro-esophageal reflux disease without esophagitis LORENA COLLINS [facility] Aug 16, 2024 08:58 AM SECONDARY Hyperlipidemia, unspecified LORENA COLLINS [facility] Plan of Treatment: Future Appointments (+ 6 months) and Future Tests (+/- 45 days) The Plan of Treatment section includes future care activities for the patient from all ID treatmentfacilities. This section includes future appointments and future orders which are active, pending or scheduled. Future Appointments This section includes appointments that were scheduled to occur 6 months from the date of the Encounter, up to a maximum of 20 appointments. The data comes from all ID treatment facilities. Appointment Date/Time Appointment Type Appointme nt Facility Name Aug 30, 2024 11:15 AM AMBULATORY - NONE [facility] 2024 09:00 AM AMBULATORY - SURGERY [facility] Nov 15, 2024 10:00 AM AMBULATORY - NONE [facility] Jan 25, 2025 08:45 AM AMBULATORY - NONE [facility] Jan 25, 2025 10:00 AM AMBULATORY - MEDICINE [facility] Vital Signs: All taken on the encounter date This section contains inpatient and outpatient Vital Signs collected on the date of the Encounter. Date/Time Temperature Pulse Blood Pressure Respiratory Rate SP02 Pain Height Weight Body Mass Index Source Aug 16, 2024 08:36 AM 3 [facility] Aug 16, 2024 08:29 AM 97.7 78 142/82 18 96 0 68 230 35 [facility] Social History: Smoking Status (Most current) and Tobacco Use (All prior to encounter date) This section includes the most current, and the historical, smoking and tobacco- related health factors from the ID facility where the Encounter took place. Current Smoking Status This section includes the most current smoking, or tobacco-related health factor, from the ID facility where the Encounter took place. Date/Time Current Smoking Status Comment Facil ity Feb 23, 2024 01:00 PM VA-TOBACCO QUIT 15 YRS OR MORE [facility] Tobacco Use History This section includes a history of the smoking, or tobacco-related health factors, that were collected on or before the date of the Encounter. The data comes from the ID facility where the Encounter took place. Date/Time Smoking Status/Tobacco Use Comment F acility Feb 23, 2024 01:00 PM VA-TOBACCO QUIT 15 YRS OR MORE [facility] Nov 25, 2022 07:30 AM VA-TOBACCO NEVER USED [facility] Aug 11, 2021 01:00 PM VA-TOBACCO NEVER USED [facility] Feb 29, 2020 11:02 AM VA-TOBACCO FORMER USER [facility] Feb 29, 2020 11:02 AM VA-TOBACCO QUIT 15 YRS OR MORE [facility] Oct 31, 2018 04:26 PM V16 TOBACCO USE SCREEN [facility] Oct 31, 2018 04:26 PM VA-TOBACCO FORMER USER [facility] Oct 31, 2018 04:26 PM VA-TOBACCO QUIT 15 YRS OR MORE [facility] Mar 24, 2018 07:49 AM V16 LIFETIME NON-TOBACCO USER [facility] Mar 24, 2018 07:49 AM V16 TOBACCO USE SCREEN [facility] Mar 23, 2017 07:40 AM V16 LIFETIME NON-TOBACCO USER [facility] Mar 23, 2017 07:40 AM V16 TOBACCO USE SCREEN [facility] Mar 20, 2016 08:30 AM V16 LIFETIME NON-TOBACCO USER [facility] Mar 20, 2016 08:30 AM V16 TOBACCO USE SCREEN [facility] Jan 24, 2015 09:08 AM V16 LIFETIME NON-TOBACCO USER [facility] Jan 24, 2015 09:08 AM V16 TOBACCO USE SCREEN [facility] Nov 23, 2013 08:35 AM V16 TOBACCO CESSATION >7 YEARS [facility] Nov 23, 2013 08:35 AM V16 TOBACCO USE SCREEN [facility] Nov 29, 2012 09:12 AM V16 LIFETIME NON-TOBACCO USER [facility] Nov 29, 2012 09:12 AM V16 TOBACCO USE SCREEN [facility] Nov 09, 2011 09:39 AM V16 TOBACCO CESSATION >7 YEARS [facility] Nov 09, 2011 09:39 AM V16 TOBACCO USE SCREEN [facility] Nov 10, 2010 09:16 AM V16 TOBACCO CESSATION >7 YEARS [facility] Nov 10, 2010 09:16 AM V16 TOBACCO USE SCREEN [facility] Nov 15, 2009 10:29 AM V16 TOBACCO CESSATION >7 YEARS [facility] Nov 15, 2009 10:29 AM V16 TOBACCO USE SCREEN [facility] Nov 28, 2008 08:56 AM V16 TOBACCO CESSATION >7 YEARS [facility] Nov 28, 2008 08:56 AM V16 TOBACCO USE SCREEN [facility] Jul 11, 2007 08:53 AM V16 TOBACCO CESSATION >7 YEARS [facility] Jul 11, 2007 08:53 AM V16 TOBACCO USE SCREEN [facility] December 03, 2006 08:57 AM V16 TOBACCO CESSATION >7 YEARS [facility] December 03, 2006 08:57 AM V16 TOBACCO USE SCREEN [facility] May 27, 2006 10:53 AM V16 TOBACCO CESSATION > 12 MONTH S [facility] May 27, 2006 10:53 AM V16 TOBACCO USE SCREEN [facility] Jan 12, 2003 08:53 AM LIFETIME NON-TOBACCO USER [facility] Jul 07, 2001 10:12 AM TOBACCO CESSATION: >10 YEARS [facility] Jan 05, 2001 12:50 PM TOBACCO CESSATION: >10 YEARS [facility] Encounter Notes: All associated encounter notes This section contains the clinical notes associated to the Encounter. Date/Time Encounter Note(s) Provider Source Aug 16, 2024 08:58 AM MEDICATION MGT NOTE: LOCAL TITLE: MEDICATION RECONCILIATION (PROVIDER) STANDARD TITLE: MEDICATION MGT NOTE DATE OF NOTE: AUG 16, 2024@08:58 ENTRY DATE: AUG 16, 2024@08:58:54 AUTHOR: LORENA COLLINS EXP COSIGNER: URGENCY: STATUS: COMPLETED Medication Reconciliation COMPLETED (Outpatient): NO medication additions, deletions, dosage changes OR duplications were identified. This Medication Reconciliation note and Patient Medication Information Cover Sheet were reviewed with the patient and/or caregiver and all questions answered. A copy of this note was given to or mailed to patient and/or caregiver at the end of this visit. Remote and Local Allergies: FACILITY ALLERGY/ADR -------- [facility] [place] [facility] [place] [facility] [place] [facility] [place] [facility], [place] [address] [facility] NO KNOWN ALLERGIES A list of active and pending outpatient prescriptions dispensed from this [facility] and dispensed remotely from another ID or [facility] facility as well as local, pending and active inpatient orders, local clinic medications, locally documented non-VA medications, and local prescriptions that have or been discontinued in the past 90 days has been generated below. If the list for review does not include a component, then it was not applicable to this patient. Active Inpatient, Outpatient and Clinic Medications (including Supplies): Active Outpatient Medications Status 1) CARBOXYMETHYLCELLULOSE NA 0.5% OPH SOLN INSTILL 1 DROP IN ACTIVE EACH EYE FOUR TIMES DAILY 2) HYDROPHILIC (EQV EUCERIN) TOP CREAM APPLY SMALL AMOUNT ACTIVE (S) TOPICALLY FOUR TIMES DAILY NEEDED Indication: TO SOFTEN THE SKIN 3) MELATONIN 3MG CAP/TAB TAKE TWO BY MOUTH ONCE DAILY ACTIVE Indication: FOR SLEEP 4) NYSTATIN [id number] UNT/ML SUSP TAKE 5 ML BY MOUTH FOUR TIMES ACTIVE DAILY SWISH FOR TWO MINUTES AND SPIT 4 TIMES PER DAY. DO NOT SWALLOW. Indication: FOR FUNGAL INFECTION Active Non-VA Medications Status 1) Non-VA LORATADINE 10MG TAB 10MG MOUTH ONCE DAILY NEEDED ACTIVE 2) Non-VA NON-VA DRUG ASSESSMENT DONE CAP/TAB MOUTH ACTIVE 3) Non-VA OFLOXACIN 0.3% OPH SOLN 1 DROP RIGHT EYE FOUR TIMES ACTIVE DAILY 7 Total Medications No Active Remote Medications for this patient /es/ LORENA COLLINS MD [place] Primary Care Physician Signed: 08/16/2024 08:59 LORENA COLLINS [facility] Aug 16, 2024 08:38 AM PRIMARY CARE PHYSICIAN NOTE: LOCAL TITLE: PRIMARY CARE/PROVIDER STANDARD TITLE: PRIMARY CARE PHYSICIAN NOTE DATE OF NOTE: AUG 16, 2024@08:38 ENTRY DATE: AUG 16, 2024@08:38:22 AUTHOR: LORENA COLLINS EXP COSIGNER: URGENCY: STATUS: COMPLETED PT CONFIRMED HIS IDENTITY VIA HIS FULL NAME, DATE AND SOCIAL SECURITY NUMBER.VERBAL CONSENT OBTAINED. CHIEF COMPLAINT: ANNUAL VISIT BP: 142/82 (08/16/2024 08:29) Pain: 0 (08/16/2024 08:29) Height: 68 in [172.7 cm] (08/16/2024 08:29) Weight: 230 lb [104.33 kg] (08/16/2024 08:29) Pulse: 78 (08/16/2024 08:29) Respiration: 18 (08/16/2024 08:29) Temperature: 97.7 F [36.5 C] (08/16/2024 08:29) BMI: AUG 16, 2024@08:29:16 35.0 08/16/24 @ 0829 PULSE OXIMETRY: 96 SUBJECTIVE: 6 month exam, no labs today -no cc pcp -cc ortho, recent right knee replacement Jun 27, currently doing PT three times a week, using a cane -med list up to date -repeat b/p 132/88 HPI: 63 year old MALE presents to the [facility]. 1. ALLERGIC RHINITIS - STABLE ON LORATIDINE 2. HYPERLIPIDEMIA - SLIGHTLY HIGH, DISCUSSED DIET, DOES NOT WANT STATIN 3. FATIGUE - DOING BETTER TAKES MELATONIN NEEDED 4. CHRONIC RIGHT KNEE PAIN - recent right knee replacement Jun 27, currently doing PT three times a week, using a cane NON ID PROVIDERS: -no cc pcp -cc ortho, recent right knee replacement Jun 27, currently doing PT three times a week, using a cane LABS REVIEWED AT VISIT, INFORMATION GIVEN ON HOW TO ACCESS [employer] TO REVIEW LABS FURTHER. 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 [facility] [facility] [place] MARITAL HISTORY:m OCCUPATION: CHILDREN:1 SMOKING:no ALCOHOL:no DRUGS:No HINDUISM:UNKNOWN/NO PREFERENCE STD HISTORY:No HOMELESS: No PAST MEDICAL HISTORY: Brief Problem List: 1. Pain of right knee joint 07/25 HAD R TKR REFERRED TO PT 2. Exposure to potentially hazardous substance (SCT [id number]) Entered automatically through [facility] Problem List documentation program 3. Vertigo 01/21 REFERRED TO NEUROLOGY 02/20 MRI BRAIN NL 4. Trigger finger 01/21 RIGHT INDEX FINGER - SENT TO HAND SPECIALIST 5. Pain radiating to left shoulder 02/19 Left rotator cuff tear referred to ortho 6. Intermittent alternating exotropia 7. Erectile dysfunction 8. Osteoarthritis of knee 9. Osteoarthritis of shoulder 10. Foot pain 11. Low back pain 12. Hyperlipidemia REFUSES STATIN 13. Gastroesophageal reflux disease without esophagitis 14. Osteoarthritis (SNOMED CT 920949679) 15. Insomnia 16. Foot pain (SNOMED CT 37949678) 17. Pain in joint involving shoulder region (ICD-9-CM 719.41) 18. Allergic rhinitis * (ICD-9-CM 477.9) 19. Vasectomy Status (ICD-9-CM V26.52) 20. Low Back Pain * (ICD-9-CM 724.2) 21. Hearing loss * (ICD-9-CM 389.9) 22. Glaucoma, Suspect (ICD-9-CM 365.00) 23. Osteoarthrosis involving the knee (ICD-9-CM 715.98) Right 24. Major Depression, recurrent (ICD-9-CM 296.30) 25. 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) Left 26. 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) 27. Hyperlipidemia * (ICD-9-CM 272.4) 28. GERD PAST SURGICAL HISTORY: SURGERIES - NONE FOUND ALLERGIES:[place], [place] FAMILY HISTORY: MEDICATIONS: Active Outpatient Medications (including Supplies): Issue Date Status Last Fill Active Outpatient Medications Refills Expiration 1) CARBOXYMETHYLCELLULOSE NA 0.5% OPH SOLN Qty: ACTIVE Issue: 11/15/23 15 for 30 days Sig: INSTILL 1 DROP IN EACH Refills: 4 Last : 08/16/24 EYE FOUR TIMES DAILY Expr : 11/15/24 2) HYDROPHILIC (EQV EUCERIN) TOP CREAM Qty: 454 ACTIVE (S) Issue: 05/29/24 for 90 days Sig: APPLY SMALL AMOUNT Refills: 2 Last : 10/08/24 TOPICALLY FOUR TIMES DAILY NEEDED Expr : 05/30/25 Indication: TO SOFTEN THE SKIN 3) MELATONIN 3MG CAP/TAB Qty: 60 for 30 days ACTIVE Issue: 02/23/24 Sig: TAKE TWO BY MOUTH ONCE DAILY Refills: 2 Last : 05/29/24 Indication: FOR SLEEP Expr : 02/23/25 4) NYSTATIN [id number] UNT/ML SUSP Qty: 60 for 7 ACTIVE Issue: 05/29/24 days Sig: TAKE 5 ML BY MOUTH FOUR TIMES Refills: 1 Last : 05/29/24 DAILY SWISH FOR TWO MINUTES AND SPIT 4 Expr : 05/30/25 TIMES PER DAY. DO NOT SWALLOW. Indication: FOR FUNGAL INFECTION Start Date Active Non-VA Medications Status Stop Date 1) Non-VA LORATADINE 10MG TAB SiMG MOUTH ACTIVE ONCE DAILY NEEDED 2) Non-VA NON-VA DRUG ASSESSMENT DONE CAP/TAB ACTIVE Sig: MOUTH 3) Non-VA OFLOXACIN 0.3% OPH SOLN Si DROP ACTIVE RIGHT EYE FOUR TIMES DAILY 7 Total Medications REVIEW OF SYSTEMS: GENERAL: No fever or weight loss EYES: No vision changes, pain or discharge ENT/MOUTH: No ear pain, sore throat or sinus pain NECK: No pain or stiffnes CARDIAC: No dyspnea, chest pain or palpitations RESPIRATORY: No cough, sob, wheezing or sputum production GI: No GERD symptoms, nausea, vomiting or diarrhea URINARY: No dysuria, frequency, urgency or hematuria MUSCULOSKELETAL:No muscle pain, joint pain or decreased ROM LYMPH: No masses or swelling NEUROLOGIC: No balance issues, or memory loss ENDOCRINE: No polyuria, polydipsia or hunger HEMALTOLOGIC: No bruising SKIN: No rashes PSYCHIATRIC: No suicidal or homicidal issues. No depression or anxiety VITALS: see above PHYSICAL EXAM: GENERAL: NAD; Alert and oriented x 3. Mood appropriate. HEENT: Oropharynx clear. TM WNL No Lymphadenopathy, neck supple, no bruits HEART: RRR, no gallops or rubs, no murmur. LUNGS: Clear to auscultation. No wheezing or SOB ABDOMEN: Active BS, no bruit. No organomegaly or masses. Non-tender. EXT: No edema SKIN: No rash or jaundice. NEURO: CN:II-XII:intact,Sensory:intact, Strength:5/5 Perfecto. LABS: reviewed with patient ASSESSMENT and PLAN: SEE HPI SCREENING: LAST COLONOSCOPY: PATIENT EDUCATION: 1. DIET & EXERCISE 2. MEDICATIONS (including instructions, benefits & side effects) 3. LABS REVIEWED WITH PATIENT LABS for next visit: annual TOTAL TIME SPENT: >30 MINS FOLLOW UP: farhana stone /kaylin/ LORENA COLLINS MD [place] Primary Care Physician Signed: 08/16/2024 08:57 LORENA COLLINS [facility] Aug 16, 2024 08:29 AM PRIMARY CARE NURSING NOTE: LOCAL TITLE: PRIMARY CARE/NURSE STANDARD TITLE: PRIMARY CARE NURSING NOTE DATE OF NOTE: AUG 16, 2024@08:29 ENTRY DATE: AUG 16, 2024@08:30:01 AUTHOR: DWAYNE ZHENG EXP COSIGNER: URGENCY: STATUS: COMPLETED BP: 142/82 (08/16/2024 08:29) Pain: 0 (08/16/2024 08:29) Height: 68 in [172.7 cm] (08/16/2024 08:29) Weight: 230 lb [104.33 kg] (08/16/2024 08:29) Pulse: 78 (08/16/2024 08:29) Respiration: 18 (08/16/2024 08:29) Temperature: 97.7 F [36.5 C] (08/16/2024 08:29) BMI: AUG 16, 2024@08:29:16 35.0 08/16/24 @ 0829 PULSE OXIMETRY: 96 SUBJECTIVE: 6 month exam, no labs today -no cc pcp -cc ortho, recent right knee replacement Jun 27, currently doing PT three times a week, using a cane -med list up to date -repeat b/p 132/88 How is your stress level today? Minimal Stress - No follow up needed. Example: Life is good, I have no stress. Depression: No Suicidal: No Accompanied By: Alone On Arrival: Ambulatory Mobility changes in the past 3 months? No Mental Status: Alert and oriented Do you have or use an assistive device? Yes, Specify: cane Do you need further instruction on the use of your device? No Has patient had fall(s) in last 3 months? No, patient reports no fall(s) in last 3 months. Potential risks for falls identified. No Has the patient traveled outside the [place] within the past 30 days? No If yes, where has the patient traveled? Psychosocial Status: Indication of suspected abuse, neglect, or exploitation? No LAB TESTS SELECTED Collection DT Specimen Test Name Result Units Ref Range 02/23/2024 08:15 PLASMA LDLc 149 mg/dL Ref: Optimal <100 LAB CUMULATIVE SELECTED 1 No selection items chosen for this component. Other Medications (herbals, OTCs, infusions, oral medications, topicals, etc): No Active Outpatient Medications (including Supplies): Active Outpatient Medications Status 1) CARBOXYMETHYLCELLULOSE NA 0.5% OPH SOLN INSTILL 1 DROP IN ACTIVE EACH EYE FOUR TIMES DAILY 2) HYDROPHILIC (EQV EUCERIN) TOP CREAM APPLY SMALL AMOUNT ACTIVE (S) TOPICALLY FOUR TIMES DAILY NEEDED Indication: TO SOFTEN THE SKIN 3) MELATONIN 3MG CAP/TAB TAKE TWO BY MOUTH ONCE DAILY ACTIVE Indication: FOR SLEEP 4) NYSTATIN [id number] UNT/ML SUSP TAKE 5 ML BY MOUTH FOUR TIMES ACTIVE DAILY SWISH FOR TWO MINUTES AND SPIT 4 TIMES PER DAY. DO NOT SWALLOW. Indication: FOR FUNGAL INFECTION Active Non-VA Medications Status 1) Non-VA LORATADINE 10MG TAB 10MG MOUTH ONCE DAILY NEEDED ACTIVE 2) Non-VA NON-VA DRUG ASSESSMENT DONE CAP/TAB MOUTH ACTIVE 3) Non-VA OFLOXACIN 0.3% OPH SOLN 1 DROP RIGHT EYE FOUR TIMES ACTIVE DAILY 7 Total Medications COVID-19 Immunization: Refused Moderna Monovalent COVID-19 vaccine Immunization: COVID-19 (MODERNA), MRNA, LNP-S, PF, 50 MCG/0.5 ML (AGES 12+ YEARS) Refusal Reason: PATIENT DECISION Patient refuses all immunization(s) in the COVID-19 group Date Documented: 08/16/24 08:34 Influenza Immunization: Deferral / Refusal The patient declines to receive the recommended dose of seasonal influenza vaccine. Immunization: INFLUENZA, UNSPECIFIED FORMULATION Refusal Reason: PATIENT DECISION Patient refuses all immunization(s) in the FLU group Date Documented: 08/16/24 08:35 Herpes Zoster (Shingles) Vaccine: The patient declines to receive the recommended dose of zoster (shingles) vaccine. Immunization: ZOSTER RECOMBINANT Refusal Reason: PATIENT DECISION Patient refuses all immunization(s) in the ZOSTER group Date Documented: 08/16/24 08:35 Avg Risk Colorectal Cancer Screen: AVERAGE RISK colorectal cancer screening is due based on information available to this clinical reminder Patient declined screening/surveillance. Patient educated on the benefits of colorectal cancer screening/surveillance and the risk if screening/surveillance is not completed. Level of Understanding: Good Pain Evaluation (Nurse): PAIN EVALUATION: Clinic Location: Primary Care Patient reports having pain today. Patient reports Primary Care Provider is aware of pain. Pain Screening Tool utilized: [facility]/VA Pain Scale This pain has been present for: Up to 3 months. Pain description: Comment: right knee replacement Jun 27 Patient does NOT want pain addressed. Education Topics for patient/family/significant other: Effectiveness of current pain medications. Level of Understanding: Good Advance Directive Screen (Nurse): Your Rights Regarding Advance Directives was discussed and/or provided to patient/caregiver. FORM: https://www.ethics.[place].gov/docs/gabi granda/ID_[email or web address]_10_0137_Advance_Di rective.pdf EDUCATION: ----- ADVANCE DIRECTIVE SCREEN COPY of Advance Directive NOT on file in patient's medical record. Patient does not wish to create an Advance Directive. Information provided to patient. Depression Screening: Perform PHQ-2 A PHQ-2 screen was performed. The score was 0 which is a negative screen for depression. Over the past two weeks, how often have you been bothered by the following problems? 1. Little interest or pleasure in doing things Not at all 2. Feeling down, depressed, or hopeless Not at all RHS Screen: RHS Screen Environmental Check Upon inquiry, the individual reports that the environment is safe to proceed. Informed Consent to Screen and Document The individual consents to proceed with screening. The individual consents to documentation of responses. PRIMARY SCREEN: In the past 12 months, how often did a current or former intimate partner (e.g., boyfriend, girlfriend, , , sexual partner): 1. Scream or curse at you Never 2. Insult or talk down to you Never 3. Threaten you with harm Never 4. Physically hurt you Never 5. Force or pressure you to have sexual contact against your will, or when you were unable to say no Never ?? The HITS tool (items 1-4 above) is [place] copyright protected by Ned Awad MD, and the user has full rights to use it throughout the ID system. PRIMARY SCREEN RESULT: The Primary Screen is NEGATIVE. The individual answered never to all forms of IPV above (i.e., answered never to all 5 items) The individual accepts education and/or resources: No EDUCATION: The individual indicated readiness to learn. Education offered during this session as noted above. The individual indicated understanding by asking relevant questions and making appropriate comments. No barriers to learning were observed or identified. /kaylin/ DWAYNE ZHENG PRIMARY CARE LICENSED PRACTICAL NURSE-[place] Signed: 08/16/2024 08:37 DWAYNE ZHENG [facility]
--- OUTSIDE RECORDS SUMMARY | 2024-09-25 15:30 | XMS_ITS | Encounter Summary ---
Author Name [facility] [place] [facility] [place] Address [address], [place] [address] Care Team Providers Care Compliance Nurse Name Role Phone LORENA COLLINS Primary Care Provider Unavailabl e Selected Encounter This section includes the information on record at [place] for the Encounter. Date/Time Encounter Type Encounter Description Reason Pro vider Source Aug 25, 2024 11:27 AM Outpatient Encounter COMMUNITY CARE CONSULT IHE Encounter Template Text not used by [place] Plan of Treatment: Future Appointments (+ 6 months) and Future Tests (+/- 45 days) The Plan of Treatment section includes future care activities for the patient from all [place] treatmentfacilities. This section includes future appointments and future orders which are active, pending or scheduled. Future Appointments This section includes appointments that were scheduled to occur 6 months from the date of the Encounter, up to a maximum of 20 appointments. The data comes from all [place] treatment facilities. Appointment Date/Time Appointment Type Appointme nt Facility Name Aug 30, 2024 11:15 AM AMBULATORY - NONE [facility] 2024 09:00 AM [facility]UL[facility] - [facility] Nov 15, 2024 10:00 AM AMBULATORY - NONE [facility] Jan 25, 2025 08:45 AM AMBULATORY - NONE [facility] Jan 25, 2025 10:00 AM AMBULATORY - MEDICINE [facility] Encounter Notes: All associated encounter notes This section contains the clinical notes associated to the Encounter. Date/Time Encounter Note(s) Provider Source Aug 25, 2024 11:27 AM NONVA NOTE: LOCAL TITLE: COMMUNITY CARE-REQUEST FOR SERVICE NOTE STANDARD TITLE: NONVA NOTE DATE OF NOTE: AUG 25, 2024@11:27 ENTRY DATE: AUG 25, 2024@11:28:02 AUTHOR: ANGY ALLEN COSIGNER: URGENCY: STATUS: COMPLETED Request for Services (RFS) documentation has been sent for scanning to [facility] Care Consult: COMMUNITY CARE-Orthopedic Consult No: [id number] Date sent to scanning: Aug A Request for Service (RFS) form [id number] has been received which includes the following: Care Requested:continuation of physical therapy ICD-10 Dx code: Pain in right Knee(ICD-10-CM M25.561) Date [facility] received request: Aug Date service required: Aug Requesting Community Provider Information: [facility] [address] [place] [id number] P: [phone] F: [phone] /es/ Angy Allen MSN, RN OCC RN [employer] Signed: 08/25/2024 11:29 Receipt Acknowledged By: 08/25/2024 14:28 /es/ LORENA COLLINS MD [place] Primary Care Physician ANGY ALLEN [facility]
--- OUTSIDE RECORDS SUMMARY | 2024-09-25 15:30 | XMS_ITS ---
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 Date/Time Encounter Type Encounter Description Reason Pro vider Source Sep 25, 2024 08:31 AM Outpatient Encounter TELEPHONE TRIAGE IHE Encounter Template Text not used by [facility] Plan of Treatment: Future Appointments (+ 6 months) and Future Tests (+/- 45 days) The Plan of Treatment section includes future care activities for the patient from all [place] treatmentfacilities. This section includes future appointments and future orders which are active, pending or scheduled. Future Appointments This section includes appointments that were scheduled to occur 6 months from the date of the Encounter, up to a maximum of 20 appointments. The data comes from all [place] treatment facilities. Appointment Date/Time Appointment Type Appointme nt Facility Name 2024 09:00 AM AMBULATORY - SURGERY [facility] Nov 15, 2024 10:00 AM [facility]ORY - NONE [facility] Jan 25, 2025 08:45 AM AMBULATORY - NONE [facility] Jan 25, 2025 10:00 AM AMBULATORY - MEDICINE [facility] Encounter Notes: All associated encounter notes This section contains the clinical notes associated to the Encounter. Date/Time Encounter Note(s) Provider Source Sep 25, 2024 08:31 AM RN PROGRESS NOTE: LOCAL TITLE: CCC: CLINICAL TRIAGE STANDARD TITLE: RN PROGRESS NOTE DATE OF NOTE: SEP 25, 2024@08:31:14 ENTRY DATE: SEP 25, 2024@08:31:14 AUTHOR: ILEANA MARTIN EXP COSIGNER: URGENCY: STATUS: COMPLETED Patient Demographics Patient Name: NED LARA Patient Primary Address: [address] [place] [address] [address] [place] [id number] Patient Primary Phone: [phone] Patient : 1960 Patient Age: 63 Caller/Recipient Relation to Patient: Self Caller Name: NED LARA Emergency Contact: MAYRA TORRES [facility] Screening Patient Stated Symptoms: FAV SYMPTOM CALL SOB UPON EXERTION Triage Summary Conducted triage/discussed symptoms Pain Score: 0 (No Pain) Utilized the Triage Tool: Yes Chief Complaint: Shortness Of Breath System WHEN: Now, 911 Nurse's Recommendation / WHEN: 911 System WHERE: Emergency department Nurse's Recommendation / WHERE: ED CT Test to Treat Summary of Actions Verbal Education Call [facility] if worsening symptoms Does patient agree to recommendation: Yes Patient Disposition Patient/Caregiver agrees to plan of care: Yes Patient WHERE: ED Other Other - Patient Where Disposition: [place], [place] Patient WHEN: Now Patient is Urgent or Emergent Nursing Plan and Disposition Referred patient to higher level of care Instructed to go to Emergency Room (ER) Other course(s) of action Generated msg to PACT/Provider Provided guidance for worsening symptoms: *Caller/Patient* advised to call facilities [place] Clinical Contact Center or seek immediate medical attention for new or worsening symptoms Nurse Summary Nurse Summary: sob with any excretion -gradually x 1 month. Chest pain when carry anything. no coughing, no wheezing. swelling to right knee, had surgery 04/2025. no history of heart issues. Knee surgery 04/2025. is winded on telephone. this nurse heard a wheeze (exp). also unable to complete sentences. states he got up and walked to kitchen. and was sob as soon as got up from bed. unable to give ER/Hospital disclaimer at this call. Clinical Contact Center Codes Clinic/Location: V16 FAV PHONE [facility] RN Decision Support System Output: Triage Complete Triage Date: 09/25/2024, 08:26 AM Triage Note: Decision Support Tool Used: [facility] Phone Triage 25 Sep 2024 14:23:57 +0000 [facility] Demographics 63 y/o Male Results CC: Shortness Of Breath Software suggested: Now, 91 Software suggested follow-up location: Emergency department Values and Measures Duration of CC: 1 Months Positive Responses HPI: chest pain HPI: lightheadedness, with dyspnea HPI: wheezing, new or worsening VS: temperature not taken Negative Responses Denies: HPI: arm pain, with dyspnea Denies: HPI: cough, new or worsening Denies: HPI: diaphoresis, with dyspnea Denies: HPI: jaw pain, with dyspnea Denies: HPI: syncope, with dyspnea Denies: HPI: weakness, with dyspnea Denies: PMH: angina Denies: PMH: asthma Denies: PMH: COPD Denies: PMH: heart attack Education Verbal Education Provided: Based on your responses, you should be treated in the emergency department. Take action: Consider calling an ambulance. You need to see a provider now or your condition could worsen. IMPORTANT: This note was created by [facility] Clinical Contact Center staff. Please do not alert the staff member by adding them as a signer for future communications. Alerts are not monitored by this user. /kaylin/ ILEANA DAWN,RN Clinical pumper gauger apprentice Triage Signed: 09/25/2024 08:31 Receipt Acknowledged By: * AWAITING SIGNATURE * DWAYNE ZHENG 09/25/2024 08:38 /kaylin/ DUSTIN PENA, [facility] * AWAITING SIGNATURE * LORENA COLLINS [place] [facility]
--- OUTSIDE RECORDS SUMMARY | 2024-09-25 15:30 | XMS_ITS | Encounter Summary ---
Author Name [facility] [place] Address [address], [place] [address] Care Team Providers Care Tobacco Sweeper Name Role Phone LORENA COLLINS Primary Care Provider Unavailabl e Selected Encounter This section includes the information on record at [place] for the Encounter. Date/Time Encounter Type Encounter Description Reason Provider Source Feb 23, 2024 10:30 AM OFFICE O/P EST HI 40 MIN PRIMARY CARE/MEDICINE ICD-10-CM E78.5 Hyperlipidemia, unspecified LORENA COLLINS IHE Encounter Template Text not used by [place] Assessments - Encounter Diagnoses This section includes the primary and secondary diagnoses documented for the Encounter. Date/Time Primary/Secondary Diagnosis Diagnosis Name Provider Source Feb 23, 2024 11:09 AM PRIMARY Hyperlipidemia, unspecified LORENA COLLINS [facility] Feb 23, 2024 11:09 AM SECONDARY Gastro-esophageal reflux disease without esophagitis LORENA COLLINS [facility] Plan of Treatment: Future Appointments (+ 6 months) and Future Tests (+/- 45 days) The Plan of Treatment section includes future care activities for the patient from all [facility] treatmentfacilities. This section includes future appointments and future orders which are active, pending or scheduled. Future Appointments This section includes appointments that were scheduled to occur 6 months from the date of the Encounter, up to a maximum of 20 appointments. The data comes from all [place] treatment facilities. Appointment Date/Time Appointment Type Appointme nt Facility Name Apr 12, 2024 07:30 AM AMBULATORY - NONE [facility]ERY[facility] May 03, 2024 09:30 AM AMBULATORY - NONE [facility] May 29, 2024 09:30 AM AMBULATORY - NONE CHERYL [facility] May 29, 2024 09:45 AM AMBULATORY - NONE CHERYL [facility] Jul 05, 2024 08:00 AM AMBULATORY - NONE [facility] Aug 16, 2024 08:30 AM AMBULATORY - MEDICINE [facility] Lab Results: +/- 30 days of the encounter This section includes the Chemistry and Hematology Lab Results on record with [place] for the patient. Radiology Reports and Pathology Reports are provided separately, in subsequent sections. Lab Results This section contains the Chemistry/Hematology Results that were resulted 30 days before or 30 daysafter the date of the Encounter. Date/Time Source Result Type Result - Unit Interpretation Reference Range Comment Feb 23, 2024 08:15 AM [facility] GLYCO HGB A1C Specimen Type: BLOOD Comment: Values obtained from A1C measurements can vary. For typical A1C assays, a reported value of 7.0 could actually be between 6.72 and 7.28 if measured by a reference method. A reported value of 9.0 could actually be between 8.73 and 9.27. Ref: [email or web address] [email or web address]. Ordering Provider: LORENA COLLINS Report Released Date/Time: Aug 03, 2023 07:56 AM Reporting Lab: [address] [address] Performing Lab: [address] [address] Glyco Hgb A1C 5.5 4.2-5.8 Feb 23, 2024 08:15 AM [facility] URINE ALBUMIN, RANDOM URINE Specimen Type: URINE No comment entered. Ordering Provider: LORENA COLLINS Report Released Date/Time: Aug 03, 2023 07:56 AM Reporting Lab: [address] [address] Performing Lab: [address] [address] URINE ALBUMIN (FV) 0.7 mg/dL <1.8 ALB:CREAT RATIO (FV) 3 <29 CREATININE (FV) 234 mg/dL Feb 23, 2024 08:15 AM [facility] TSH (FV) Specimen Type: SERUM No comment entered. Ordering Provider: LORENA COLLINS Report Released Date/Time: Aug 03, 2023 07:56 AM Reporting Lab: [facility] [address] [facility] [address] Performing Lab: [facility] [address] [facility] [phone] TSH (FV) 3.04 u[IU]/mL 0.45-5.33 Feb 23, 2024 08:15 AM [place] [facility] LIPID PROFILE (FV) Specimen Type: PLASMA No comment entered. Ordering Provider: LORENA COLLINS Report Released Date/Time: Aug 03, 2023 07:56 AM Reporting Lab: [address] [address] Performing Lab: [address] [address] CHOLESTEROL, TOTAL (FV) 221 mg/dL H 118-200 TRIGLYCERIDE (FV) 153 mg/dL <200 LDL CHOLESTEROL (CALCULATED) 149 mg/dL HDL CHOLESTEROL (FV) 41 mg/dL >40 Feb 23, 2024 08:15 AM [facility] VITAMIN B12 Specimen Type: SERUM No comment entered. Ordering Provider: LORENA COLLINS Report Released Date/Time: Aug 03, 2023 07:56 AM Reporting Lab: [facility] [address] [facility] [address] Performing Lab: [facility] [address] [facility] [address] VITAMIN B12 (FV) 230 pg/mL 180-914 Feb 23, 2024 08:15 AM [facility] CBC (FV) Specimen Type: BLOOD Comment: Values obtained from A1C measurements can vary. For typical A1C assays, a reported value of 7.0 could actually be between 6.72 and 7.28 if measured by a reference method. A reported value of 9.0 could actually be between 8.73 and 9.27. Ref: [email or web address]. Ordering Provider: LORENA COLLINS Report Released Date/Time: Aug 03, 2023 07:56 AM Reporting Lab: [address] [address] Performing Lab: [address] [address] MPV (FV) 6.4 fL L 7.4-10.4 RDW (FV) 15.4 H 11.5-14.5 HCT (FV) 46.4 40-52 HGB (FV) 15.5 g/dL 13-18 PLT (FV) 198 10*3/uL 150-440 WBC (FV) 6.8 10*3/uL 3.8-10.6 RBC (FV) 5.68 10*6/uL 4.4-5.9 MCV (FV) 81.7 fL 80-100 MCH (FV) 27.3 pg 26-34 MCHC (FV) 33.5 g/dL 32-36 NE% (FV) 63.4 NE# (FV) 4.3 10*3/uL 2.4-7.6 LY% (FV) 22.7 LY# (FV) 1.5 10*3/uL 1.0-4.8 MO% (FV) 11.0 MO# (FV) 0.7 10*3/uL 0.1-1.0 EO% (FV) 1.2 EO# (FV) 0.1 10*3/uL 0.0-0.4 BA% (FV) 1.7 BA# (FV) 0.1 10*3/uL 0.0-0.2 Feb 23, 2024 08:15 AM [facility] URINALYSIS Specimen Type: URINE No comment entered. Ordering Provider: LORENA COLLINS Report Released Date/Time: Aug 03, 2023 07:56 AM Reporting Lab: [address] [address] Performing Lab: [address] [address] UA COLOR YELLOW COLORLESS- Y ELLOW UA SPEC GRAV 1.027 1.005-1.035 UA PH 6.5 [pH] 5-8 UA NITRITE NEG Neg.-Neg UA UROBILINOGEN <2.0 mg/dL UA APPEARANCE - UA GLUCOSE NORMAL NEG-TRACE UA PROTEIN +- NEG UA BILI - NEG UA BLOOD - NEG-TRACE UA KETONES - NEG-TRACE UA LEUK EST NEG. NEG-74 Feb 23, 2024 08:15 AM [facility] RENAL+LIVER PROFILE Specimen Type: PLASMA No comment entered. Ordering Provider: LORENA COLLINS Report Released Date/Time: Aug 03, 2023 07:56 AM Reporting Lab: [id number] [address] Performing Lab: [address] [address] GLUCOSE (FV) 107 mg/dL 70-110 ALBUMIN (FV) 4.2 g/dL 3.4-5.0 AST (FV) 20 U/L 15-37 TOTAL BILIRUBIN (FV) 0.81 mg/dL 0.3-1.2 CHLORIDE (FV) 102 mmol/L 98-107 TOTAL PROTEIN (FV) 6.9 g/dL 6.1-7.9 SODIUM (FV) 136 mmol/L 136-145 POTASSIUM (FV) 3.5 mmol/L 3.5-5.1 CO2 (FV) 26 mmol/L 21-32 UREA NITROGEN (FV) 18 mg/dL 6-20 CALCIUM (FV) 8.8 mg/dL L 8.9-10.3 ALT (FV) 22 U/L 0-63 ALK. PHOS. (FV) 67 U/L 32-126 CREATININE (FV) 0.86 mg/dL .61-1.24 eGFR (CKD-EPI 2020) >90 >90 Vital Signs: All taken on the encounter date This section contains inpatient and outpatient Vital Signs collected on the date of the Encounter. Date/Time Temperature Pulse Blood Pressure Respiratory Rate SP02 Pain Height Weight Body Mass Index Source Feb 23, 2024 10:46 AM 8 [facility] Feb 23, 2024 10:29 AM 97.6 71 155/92 20 95 8 230 35 [facility] Social History: Smoking Status (Most current) and Tobacco Use (All prior to encounter date) This section includes the most current, and the historical, smoking and tobacco- related health factors from the [place] facility where the Encounter took place. Current Smoking Status This section includes the most current smoking, or tobacco-related health factor, from the [place] facility where the Encounter took place. Date/Time Current Smoking Status Comment Marga ity Feb 23, 2024 01:00 PM VA-TOBACCO FORMER USER [facility] Tobacco Use History This section includes a history of the smoking, or tobacco-related health factors, that were collected on or before the date of the Encounter. The data comes from the [place] facility where the Encounter took place. Date/Time Smoking Status/Tobacco Use Comment F acility Feb 23, 2024 01:00 PM VA-TOBACCO QUIT 15 YRS OR MORE [facility] Nov 25, 2022 07:30 AM VA-TOBACCO NEVER USED [facility] Aug 11, 2021 01:00 PM VA-TOBACCO NEVER USED [facility] Feb 29, 2020 11:02 AM VA-TOBACCO FORMER USER [facility] Feb 29, 2020 11:02 AM VA-TOBACCO QUIT 15 YRS OR MORE [facility] Oct 31, 2018 04:26 PM V16 TOBACCO USE SCREEN [facility] Oct 31, 2018 04:26 PM VA-TOBACCO FORMER USER [facility] Oct 31, 2018 04:26 PM VA-TOBACCO QUIT 15 YRS OR MORE [facility] Mar 24, 2018 07:49 AM V16 LIFETIME NON-TOBACCO USER [facility] Mar 24, 2018 07:49 AM V16 TOBACCO USE SCREEN [facility] Mar 23, 2017 07:40 AM V16 LIFETIME NON-TOBACCO USER [facility] Mar 23, 2017 07:40 AM V16 TOBACCO USE SCREEN [facility] Mar 20, 2016 08:30 AM V16 LIFETIME NON-TOBACCO USER [facility] Mar 20, 2016 08:30 AM V16 TOBACCO USE SCREEN [facility] Jan 24, 2015 09:08 AM V16 LIFETIME NON-TOBACCO USER [facility] Jan 24, 2015 09:08 AM V16 TOBACCO USE SCREEN [facility] Nov 23, 2013 08:35 AM V16 TOBACCO CESSATION >7 YEARS [facility] Nov 23, 2013 08:35 AM V16 TOBACCO USE SCREEN [facility] Nov 29, 2012 09:12 AM V16 LIFETIME NON-TOBACCO USER [facility] Nov 29, 2012 09:12 AM V16 TOBACCO USE SCREEN [facility] Nov 09, 2011 09:39 AM V16 TOBACCO CESSATION >7 YEARS [facility] Nov 09, 2011 09:39 AM V16 TOBACCO USE SCREEN [facility] Nov 10, 2010 09:16 AM V16 TOBACCO CESSATION >7 YEARS [facility] Nov 10, 2010 09:16 AM V16 TOBACCO USE SCREEN [facility] Nov 15, 2009 10:29 AM V16 TOBACCO CESSATION >7 YEARS [facility] Nov 15, 2009 10:29 AM V16 TOBACCO USE SCREEN [facility] Nov 28, 2008 08:56 AM V16 TOBACCO CESSATION >7 YEARS [facility] Nov 28, 2008 08:56 AM V16 TOBACCO USE SCREEN [facility] Jul 11, 2007 08:53 AM V16 TOBACCO CESSATION >7 YEARS [facility] Jul 11, 2007 08:53 AM V16 TOBACCO USE SCREEN [facility] December 03, 2006 08:57 AM V16 TOBACCO CESSATION >7 YEARS [facility] December 03, 2006 08:57 AM V16 TOBACCO USE SCREEN [facility] May 27, 2006 10:53 AM V16 TOBACCO CESSATION > 12 MONTH S [facility] May 27, 2006 10:53 AM V16 TOBACCO USE SCREEN [facility] Jan 12, 2003 08:53 AM LIFETIME NON-TOBACCO USER [facility] Jul 07, 2001 10:12 AM TOBACCO CESSATION: >10 YEARS [facility] Jan 05, 2001 12:50 PM TOBACCO CESSATION: >10 YEARS [facility] Encounter Notes: All associated encounter notes This section contains the clinical notes associated to the Encounter. Date/Time Encounter Note(s) Provider Source Apr 13, 2024 07:36 AM ADDENDUM: LOCAL TITLE: Addendum STANDARD TITLE: ADDENDUM DATE OF NOTE: APR 13, 2024@07:36:18 ENTRY DATE: APR 13, 2024@07:36:19 AUTHOR: LORENA COLLINS EXP COSIGNER: URGENCY: STATUS: COMPLETED MRI KNEE (RIGHT) W/O CONT Exm Date: APR 12, 2024@07:05 Req Phys: LORENA COLLINS Pat Loc: [facility] TM 2 (Req'g Loc) Img Loc: [facility] MRI Service: [place] [address] (Case [id number] COMPLETE)MRI KNEE (RIGHT) W/O CONT (MRI Detailed) CPT:35940 Proc Modifiers : RIGHT CPT Modifiers : RT RIGHT SIDE Reason for Study: right knee pain Clinical History: Report Status: Verified Date Reported: APR 12, 2024 Date Verified: APR 12, 2024 Pressroom Supervisor E-Sig:/ES/SHADE PÉREZ DO Report: PROCEDURE: MRI KNEE (RIGHT) W/O CONT CLINICAL INDICATION: right knee pain COMPARISON: X-rays of the right knee dated 08/03/2023 TECHNIQUE: Multiplanar multi-sequence MR images of the Right knee were obtained without contrast. FINDINGS: Postsurgical right knee. Bones: No acute fracture No aggressive osseous lesions Articular cartilage: The articular cartilage within the patellofemoral compartment is reasonably intact Moderate to advanced degenerative changes involving the articular cartilage overlying the weightbearing portion of the medial femoral condyle and the opposing tibial plateau in a region measuring approximately 23 mm AP x 18 mm transverse The articular cartilage within the lateral compartment is reasonably intact There are scattered marginal osteophytes Joint effusion: Rjovcxjb-ik-oqwjs volume knee joint effusion Medial meniscus: Complex tear involving the body and posterior horn of the medial meniscus with mild medial subluxation of the body and involvement of the tibial and femoral surfaces Lateral meniscus: Very small, gracile, partially healed horizontal tear involving the posterior horn of the lateral meniscus with extension to the tibial surface Medial patellofemoral retinaculum: Intact Lateral patellofemoral retinaculum: Intact Anterior cruciate ligament: Redemonstration of postsurgical changes consistent with ACL reconstruction The fibers of the ACL graft are intact There is also mild widening of the tibial tunnel, which is nonspecific, but may be due to a degree of tibial tunnel syndrome in the appropriate clinical setting No arthrofibrosis Posterior cruciate ligament: Mild degenerative changes involving the PCL Medial collateral ligament: Intact Fibular collateral ligament: Intact Extensor mechanism: Intact quadriceps tendon Mild tendinopathy involving the patellar tendon with superimposed postsurgical changes Oliva cyst: No Oliva's cyst Posterior lateral corner: No acute posterior lateral corner injury Surrounding musculature: The surrounding musculature demonstrates age appropriate MR signal characteristics Vascular structures: No popliteal aneurysm Neural structures: Grossly intact Subcutaneous soft tissues: Very mild anterior subcutaneous edema Impression: Right knee Meniscal findings as described above Articular cartilage findings as described above Redemonstration of postsurgical changes consistent with ACL reconstruction The fibers of the ACL graft are intact There is also mild widening of the tibial tunnel, which is nonspecific, but may be due to a degree of tibial tunnel syndrome in the appropriate clinical setting No arthrofibrosis Mild degenerative changes involving the PCL Mild tendinopathy involving the patellar tendon with superimposed postsurgical changes Romhhalg-on-tuatr volume knee joint effusion Please see above for additional findings. Follow-up with the orthopedic surgical service is recommended. A/P 1. RIGHT MENISCAL TEAR - PLEASE NOTIFY PT AND REFER TO LASHAE /kaylin/ LORENA COLLINS MD [facility] Signed: 04/13/2024 07:36 Receipt Acknowledged By: 04/14/2024 13:40 /kaylin/ DUSTIN PENA RN NURSING SERVICE --- Original Document --- 02/23/24 PRIMARY CARE/PROVIDER: PT CONFIRMED HIS IDENTITY VIA HIS FULL NAME, DATE AND SOCIAL SECURITY NUMBER.VERBAL CONSENT OBTAINED. CHIEF COMPLAINT: ANNUAL VISIT BP: 155/92 (02/23/2024 10:29) Pain: 8 (02/23/2024 10:29) Height: 68 in [172.7 cm] (11/25/2022 07:25) Weight: 230 lb [104.33 kg] (02/23/2024 10:29) Pulse: 71 (02/23/2024 10:29) Respiration: 20 (02/23/2024 10:29) Temperature: 97.6 F [36.4 C] (02/23/2024 10:29) BMI: FEB 23, 2024@10:29:46 35.0 02/23/24 @ 1029 PULSE OXIMETRY: 95 SUBJECTIVE: Vet RTC for 6 mo's physical with nonfasting labs. Vet c/o, I feel run down all the time. I get tired really easy. C/O exacerbation of chronic right knee pain, rated 8/10; Had surgery years ago. HPI: 63 year old MALE presents to the [facility]. 1. ALLERGIC RHINITIS - STABLE ON LORATIDINE 2. HYPERLIPIDEMIA - SLIGHTLY HIGH, DISCUSSED DIET, DOES NOT WANT STATIN 3. FATIGUE - I feel run down all the time. I get tired really easy FEELS WORN OUT ALL THE TIME. DOES NOT SLEEP WELL STATES HE NAPS DURING THE DAY -- DISCUSSED AVOIDING NAPS, MELATONIN 4. CHRONIC RIGHT KNEE PAIN - C/O exacerbation of chronic right knee pain, rated 8/10; Had surgery years ago TORN ACL USING NAPROXEN -- MRI RIGHT KNEE NON [place] PROVIDERS:NONE LABS REVIEWED AT VISIT, INFORMATION GIVEN ON HOW TO ACCESS [facility] TO REVIEW LABS FURTHER. 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 Vertigo 01/21 REFERRED TO NEUROLOGY 02/20 MRI BRAIN NL 2. Trigger finger 01/21 RIGHT INDEX FINGER - SENT TO HAND SPECIALIST 3. Pain radiating to left shoulder 02/19 Left rotator cuff tear referred to ortho 4. Intermittent alternating exotropia 5. Erectile dysfunction 6. Osteoarthritis of knee 7. Osteoarthritis of shoulder 8. Foot pain 9. Low back pain 10. Hyperlipidemia 11. Gastroesophageal reflux disease without esophagitis 12. Osteoarthritis (SNOMED CT 615146400) 13. Insomnia 14. Foot pain (SNOMED CT 97029442) 15. Pain in joint involving shoulder region (ICD-9-CM 719.41) 16. Allergic rhinitis * (ICD-9-CM 477.9) 17. Vasectomy Status (ICD-9-CM V26.52) 18. Low Back Pain * (ICD-9-CM 724.2) 19. Hearing loss * (ICD-9-CM 389.9) 20. Glaucoma, Suspect (ICD-9-CM 365.00) 21. Osteoarthrosis involving the knee (ICD-9-CM 715.98) Right 22. Major Depression, recurrent (ICD-9-CM 296.30) 23. 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 Hyperlipidemia * (ICD-9-CM 272.4) 26. GERD PAST SURGICAL HISTORY: SURGERIES - NONE FOUND ALLERGIES:INSECT STINGS, [place]PPERMINT FAMILY HISTORY: MEDICATIONS: Active Outpatient Medications (including Supplies): Issue Date Status Last Fill Active Outpatient Medications Refills Expiration ========= 1) CARBOXYMETHYLCELLULOSE NA 0.5% OPH SOLN ACTIVE Issu:11-15-23 Qty: 15 for 30 days Sig: INSTILL 1 Refills: 8 Last:11-15-23 DROP IN EACH EYE FOUR TIMES DAILY Expr:11-15-24 2) HYDROPHILIC (EQV EUCERIN) TOP CREAM ACTIVE Issu:08-05-23 Qty: 454 for 90 days Sig: APPLY SMALL Refills: 1 Last:11-15-23 AMOUNT TOPICALLY FOUR TIMES DAILY Expr:08-05-24 NEEDED TO SOFTEN THE SKIN 3) NYSTATIN [id number] UNT/ML SUSP Qty: 180 ACTIVE Issu:06-10-23 for 7 days Sig: TAKE 10 ML BY MOUTH Refills: 0 Last:10-20-23 DIRECTED SOAK DENTURES IN LIQUID Expr:06-10-24 OVERNIGHT Start Date Active Non-VA Medications Refills Expiration ========= 1) Non-VA LORATADINE 10MG TAB SiMG ACTIVE MOUTH ONCE DAILY NEEDED 2) Non-VA NON-VA DRUG ASSESSMENT DONE ACTIVE CAP/TAB Sig: MOUTH 3) Non-VA OFLOXACIN 0.3% OPH SOLN Si ACTIVE DROP RIGHT EYE FOUR TIMES DAILY 6 Total Medications REVIEW OF SYSTEMS: GENERAL: No [...] TOTAL TIME SPENT: >30 MINS FOLLOW UP: as directed /franki COLLINS MD [facility] Signed: 02/23/2024 11:08 03/28/2024 ADDENDUM STATUS: COMPLETED [place] calls to check process of scheduling knee MRI as he has not heard back to schedule. please order /kaylin/ DWAYNE ZHENG PRIMARY CARE LICENSED PRACTICAL NURSE-[place] Signed: 03/28/2024 10:59 Receipt Acknowledged By: 03/28/2024 12:03 /kaylin/ LORENA COLLINS MD [facility] 03/28/2024 ADDENDUM STATUS: COMPLETED PLEASE ORDER RIGHT KNEE MRI TY /kaylin/ LORENA COLLINS MD [facility] Signed: 03/28/2024 12:04 Receipt Acknowledged By: 03/29/2024 12:51 /kaylin/ DUSTIN PENA RN NURSING SERVICE LORENA COLLINS [facility] Mar 28, 2024 12:03 PM ADDENDUM: LOCAL TITLE: Addendum STANDARD TITLE: ADDENDUM DATE OF NOTE: MAR 28, 2024@12:03:57 ENTRY DATE: MAR 28, 2024@12:03:58 AUTHOR: LORENA COLLINS EXP COSIGNER: URGENCY: STATUS: COMPLETED PLEASE ORDER RIGHT KNEE MRI TY /franki COLLINS MD [facility] Signed: 03/28/2024 12:04 Receipt Acknowledged By: 03/29/2024 12:51 /es/ DUSTIN PENA RN NURSING SERVICE --- Original Document --- 02/23/24 PRIMARY CARE/PROVIDER: PT CONFIRMED HIS IDENTITY VIA HIS FULL NAME, DATE AND SOCIAL SECURITY NUMBER.VERBAL CONSENT OBTAINED. CHIEF COMPLAINT: ANNUAL VISIT BP: 155/92 (02/23/2024 10:29) Pain: 8 (02/23/2024 10:29) Height: 68 in [172.7 cm] (11/25/2022 07:25) Weight: 230 lb [104.33 kg] (02/23/2024 10:29) Pulse: 71 (02/23/2024 10:29) Respiration: 20 (02/23/2024 10:29) Temperature: 97.6 F [36.4 C] (02/23/2024 10:29) BMI: FEB 23, 2024@10:29:46 35.0 02/23/24 @ 1029 PULSE OXIMETRY: 95 SUBJECTIVE: Vet RTC for 6 mo's physical with nonfasting labs. Vet c/o, I feel run down all the time. I get tired really easy. C/O exacerbation of chronic right knee pain, rated 8/10; Had surgery years ago. HPI: 63 year old MALE presents to the [facility]. 1. ALLERGIC RHINITIS - STABLE ON LORATIDINE 2. HYPERLIPIDEMIA - SLIGHTLY HIGH, DISCUSSED DIET, DOES NOT WANT STATIN 3. FATIGUE - I feel run down all the time. I get tired really easy FEELS WORN OUT ALL THE TIME. DOES NOT SLEEP WELL STATES HE NAPS DURING THE DAY -- DISCUSSED AVOIDING NAPS, MELATONIN 4. CHRONIC RIGHT KNEE PAIN - C/O exacerbation of chronic right knee pain, rated 8/10; Had surgery years ago TORN ACL USING NAPROXEN -- MRI RIGHT KNEE NON [facility] PROVIDERS:NONE LABS REVIEWED AT VISIT, INFORMATION GIVEN ON HOW TO ACCESS [facility] TO REVIEW LABS FURTHER. 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 Vertigo 01/21 REFERRED TO NEUROLOGY 02/20 MRI BRAIN NL 2. Trigger finger 01/21 RIGHT INDEX FINGER - SENT TO HAND SPECIALIST 3. Pain radiating to left shoulder 02/19 Left rotator cuff tear referred to ortho 4. Intermittent alternating exotropia 5. Erectile dysfunction 6. Osteoarthritis of knee 7. Osteoarthritis of shoulder 8. Foot pain 9. Low back pain 10. Hyperlipidemia 11. Gastroesophageal reflux disease without esophagitis 12. Osteoarthritis (SNOMED CT 479750973) 13. Insomnia 14. Foot pain (SNOMED CT 89722867) 15. Pain in joint involving shoulder region (ICD-9-CM 719.41) 16. Allergic rhinitis * (ICD-9-CM 477.9) 17. Vasectomy Status (ICD-9-CM V26.52) 18. Low Back Pain * (ICD-9-CM 724.2) 19. Hearing loss * (ICD-9-CM 389.9) 20. Glaucoma, Suspect (ICD-9-CM 365.00) 21. Osteoarthrosis involving the knee (ICD-9-CM 715.98) Right 22. Major Depression, recurrent (ICD-9-CM 296.30) 23. 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 Hyperlipidemia * (ICD-9-CM 272.4) 26. GERD PAST SURGICAL HISTORY: SURGERIES - NONE FOUND ALLERGIES:INSECT STINGS, [place]PPERMINT FAMILY HISTORY: MEDICATIONS: Active Outpatient Medications (including Supplies): Issue Date Status Last Fill Active Outpatient Medications Refills Expiration ========= 1) CARBOXYMETHYLCELLULOSE NA 0.5% OPH SOLN ACTIVE Issu:11-15-23 Qty: 15 for 30 days Sig: INSTILL 1 Refills: 8 Last:11-15-23 DROP IN EACH EYE FOUR TIMES DAILY Expr:11-15-24 2) HYDROPHILIC (EQV EUCERIN) TOP CREAM ACTIVE Issu:08-05-23 Qty: 454 for 90 days Sig: APPLY SMALL Refills: 1 Last:11-15-23 AMOUNT TOPICALLY FOUR TIMES DAILY Expr:08-05-24 NEEDED TO SOFTEN THE SKIN 3) NYSTATIN [id number] UNT/ML SUSP Qty: 180 ACTIVE Issu:06-10-23 for 7 days Sig: TAKE 10 ML BY MOUTH Refills: 0 Last:10-20-23 DIRECTED SOAK DENTURES IN LIQUID Expr:06-10-24 OVERNIGHT Start Date Active Non-VA Medications Refills Expiration ========= 1) Non-VA LORATADINE 10MG TAB SiMG ACTIVE MOUTH ONCE DAILY NEEDED 2) Non-VA NON-VA DRUG ASSESSMENT DONE ACTIVE CAP/TAB Sig: MOUTH 3) Non-VA OFLOXACIN 0.3% OPH SOLN Si ACTIVE DROP RIGHT EYE FOUR TIMES DAILY 6 Total Medications REVIEW OF SYSTEMS: GENERAL: No [...] TOTAL TIME SPENT: >30 MINS FOLLOW UP: as directed /franki COLLINS MD [facility] Signed: 02/23/2024 11:08 03/28/2024 ADDENDUM STATUS: COMPLETED [place] calls to check process of scheduling knee MRI as he has not heard back to schedule. please order /franki ZHENG [facility] Signed: 03/28/2024 10:59 Receipt Acknowledged By: 03/28/2024 12:03 /franki COLLINS MD [facility] LORENA COLLINS [facility] Mar 28, 2024 10:58 AM ADDENDUM: LOCAL TITLE: Addendum STANDARD TITLE: ADDENDUM DATE OF NOTE: MAR 28, 2024@10:58:10 ENTRY DATE: MAR 28, 2024@10:58:10 AUTHOR: DWAYNE ZHENG EXP COSIGNER: URGENCY: STATUS: COMPLETED calls to check process of scheduling knee MRI as he has not heard back to schedule. please order /franki ZHENG [facility] Signed: 03/28/2024 10:59 Receipt Acknowledged By: 03/28/2024 12:03 /franki COLLINS MD [facility] --- Original Document --- 02/23/24 PRIMARY CARE/PROVIDER: PT CONFIRMED HIS IDENTITY VIA HIS FULL NAME, DATE AND SOCIAL SECURITY NUMBER.VERBAL CONSENT OBTAINED. CHIEF COMPLAINT: ANNUAL VISIT BP: 155/92 (02/23/2024 10:29) Pain: 8 (02/23/2024 10:29) Height: 68 in [172.7 cm] (11/25/2022 07:25) Weight: 230 lb [104.33 kg] (02/23/2024 10:29) Pulse: 71 (02/23/2024 10:29) Respiration: 20 (02/23/2024 10:29) Temperature: 97.6 F [36.4 C] (02/23/2024 10:29) BMI: FEB 23, 2024@10:29:46 35.0 02/23/24 @ 1029 PULSE OXIMETRY: 95 SUBJECTIVE: Vet RTC for 6 mo's physical with nonfasting labs. Vet c/o, I feel run down all the time. I get tired really easy. C/O exacerbation of chronic right knee pain, rated 8/10; Had surgery years ago. HPI: 63 year old MALE presents to the [facility]. 1. ALLERGIC RHINITIS - STABLE ON LORATIDINE 2. HYPERLIPIDEMIA - SLIGHTLY HIGH, DISCUSSED DIET, DOES NOT WANT STATIN 3. FATIGUE - I feel run down all the time. I get tired really easy FEELS WORN OUT ALL THE TIME. DOES NOT SLEEP WELL STATES HE NAPS DURING THE DAY -- DISCUSSED AVOIDING NAPS, MELATONIN 4. CHRONIC RIGHT KNEE PAIN - C/O exacerbation of chronic right knee pain, rated 8/10; Had surgery years ago TORN ACL USING NAPROXEN -- MRI RIGHT KNEE NON [facility] PROVIDERS:NONE LABS REVIEWED AT VISIT, INFORMATION GIVEN ON HOW TO ACCESS [facility] TO REVIEW LABS FURTHER. 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 Vertigo 01/21 REFERRED TO NEUROLOGY 02/20 MRI BRAIN NL 2. Trigger finger 01/21 RIGHT INDEX FINGER - SENT TO HAND SPECIALIST 3. Pain radiating to left shoulder 02/19 Left rotator cuff tear referred to ortho 4. Intermittent alternating exotropia 5. Erectile dysfunction 6. Osteoarthritis of knee 7. Osteoarthritis of shoulder 8. Foot pain 9. Low back pain 10. Hyperlipidemia 11. Gastroesophageal reflux disease without esophagitis 12. Osteoarthritis (SNOMED CT 369357539) 13. Insomnia 14. Foot pain (SNOMED CT 16494209) 15. Pain in joint involving shoulder region (ICD-9-CM 719.41) 16. Allergic rhinitis * (ICD-9-CM 477.9) 17. Vasectomy Status (ICD-9-CM V26.52) 18. Low Back Pain * (ICD-9-CM 724.2) 19. Hearing loss * (ICD-9-CM 389.9) 20. Glaucoma, Suspect (ICD-9-CM 365.00) 21. Osteoarthrosis involving the knee (ICD-9-CM 715.98) Right 22. Major Depression, recurrent (ICD-9-CM 296.30) 23. 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 Hyperlipidemia * (ICD-9-CM 272.4) 26. GERD PAST SURGICAL HISTORY: SURGERIES - NONE FOUND ALLERGIES:INSECT STINGS, PEPPERMINT FAMILY HISTORY: MEDICATIONS: Active Outpatient Medications (including Supplies): Issue Date Status Last Fill Active Outpatient Medications Refills Expiration ========= 1) CARBOXYMETHYLCELLULOSE NA 0.5% OPH SOLN ACTIVE Issu:11-15-23 Qty: 15 for 30 days Sig: INSTILL 1 Refills: 8 Last:11-15-23 DROP IN EACH EYE FOUR TIMES DAILY Expr:11-15-24 2) HYDROPHILIC (EQV EUCERIN) TOP CREAM ACTIVE Issu:08-05-23 Qty: 454 for 90 days Sig: APPLY SMALL Refills: 1 Last:11-15-23 AMOUNT TOPICALLY FOUR TIMES DAILY Expr:08-05-24 NEEDED TO SOFTEN THE SKIN 3) NYSTATIN [id number] UNT/ML SUSP Qty: 180 ACTIVE Issu:06-10-23 for 7 days Sig: TAKE 10 ML BY MOUTH Refills: 0 Last:10-20-23 DIRECTED SOAK DENTURES IN LIQUID Expr:06-10-24 OVERNIGHT Start Date Active Non-VA Medications Refills Expiration ========= 1) Non-VA LORATADINE 10MG TAB SiMG ACTIVE MOUTH ONCE DAILY NEEDED 2) Non-VA NON-VA DRUG ASSESSMENT DONE ACTIVE CAP/TAB Sig: MOUTH 3) Non-VA OFLOXACIN 0.3% OPH SOLN Si ACTIVE DROP RIGHT EYE FOUR TIMES DAILY 6 Total Medications REVIEW OF SYSTEMS: GENERAL: No [...] TOTAL TIME SPENT: >30 MINS FOLLOW UP: as directed /franki COLLINS MD [facility] Signed: 02/23/2024 11:08 03/28/2024 ADDENDUM STATUS: COMPLETED PLEASE ORDER RIGHT KNEE MRI KRISTI COLLINS MD [facility] Signed: 03/28/2024 12:04 DWAYNE ZHENG [facility] Feb 23, 2024 12:55 PM EDUCATION NOTE: LOCAL TITLE: AFTER VISIT SUMMARY NOTE STANDARD TITLE: EDUCATION NOTE DICT DATE: FEB 23, 2024@12:55:48 ENTRY DATE: FEB 23, 2024@12:55:48 DICTATED BY: LORENA COLLINS EXP COSIGNER: URGENCY: STATUS: COMPLETED The patient was provided with a copy of an after-visit summary at the conclusion of the visit. The after-visit summary includes information pertaining to the patient's encounter, including diagnoses, vital signs, medications, and new orders, as well as a list of any any upcoming appointments and information regarding the patient's ongoing care. The patient's medications were reviewed with the patient by the provider and were provided to the patient as an updated list of medications. The patient was instructed to inform the provider of any medication changes or discrepancies that were noted. Otherwise, the patient was instructed to continue the medications as prescribed. A copy of the after-visit summary provided to the patient is available in [facility]. SCANNED DOCUMENT SIGNATURE NOT REQUIRED Electronically Filed: 02/23/2024 by: LINDA SNIDER Advanced Medical Support Asst, [facility] LORENA COLLINS [facility] Feb 23, 2024 12:45 PM NURSING NOTE: LOCAL TITLE: LEARNING EVALUATION STANDARD TITLE: NURSING NOTE DATE OF NOTE: FEB 23, 2024@12:45 ENTRY DATE: FEB 23, 2024@12:45:25 AUTHOR: KEILA ZEE COSIGNER: URGENCY: STATUS: COMPLETED Learning Evaluation (Nurse): LEARNING EVALUATION Patient is able to read. Patient is able to write. Patient reports high school education level. Comment: GED Patient learns best by doing. CHARACTERISTICS of barriers/limitations to learning: Physical Barriers/Limitations: Decreased hearing. Decreased vision. Comment: wears glasses Cognitive Barriers/Limitations: No cognitive barriers/limitations. Emotional Barriers/Limitations: No emotional barriers/limitations. Language Barriers/Limitations: No language barriers/limitations. COMMUNICATION NEEDS: Patient had no communication needs identified. Patient has good knowledge of condition. Patient is motivated to learn. Patient needs education/information regarding how/when to seek further care. Comment: contact team 2 with any health concerns RELIGION PREFERENCE: No change to previously reported latter day preference: UNKNOWN/NO PREFERENCE. Patient reports no cultural/latter day/spiritual health preferences. /es/ KEILA ZEE RN [facility] Signed: 02/23/2024 12:48 KEILA ZEE [facility] Feb 23, 2024 12:42 PM RESCINDED CLINICAL WARNING: LOCAL TITLE: HIPAA PRIVACY RELEASE/PAST STANDARD TITLE: RESCINDED CLINICAL WARNING DATE OF NOTE: FEB 23, 2024@12:42 ENTRY DATE: FEB 23, 2024@12:42:59 AUTHOR: KEILA ZEE DE EXP COSIGNER: URGENCY: STATUS: COMPLETED Verbal consent obtained. Date: Jan This release is in effect for a period of 1 year. The following type of information may be discussed: appointment information, lab results, plan of care, treatment options, test results, condition , diagnosis, list of medications, address/phone number/emergency contact in case home care is to be provided People authorized to receive above information: Dyana () [phone] -------- I give permission to provide medical information, my home address, and my phone number in the coordination of my home health care: NO -------- I give permission for message (including medical information) to be left on my answering machine: Yes /es/ KEILA ZEE RN PRIMARY CARE REGISTERED NURSE-[facility] Signed: 02/23/2024 12:43 KEILA ZEE [facility] Feb 23, 2024 11:09 AM MEDICATION MGT NOTE: LOCAL TITLE: MEDICATION RECONCILIATION (PROVIDER) STANDARD TITLE: MEDICATION MGT NOTE DATE OF NOTE: FEB 23, 2024@11:09 ENTRY DATE: FEB 23, 2024@11:09:22 AUTHOR: LORENA COLLINS EXP COSIGNER: URGENCY: STATUS: [...] Remote and Local Allergies: FACILITY ALLERGY/ADR -------- [facility] VIS [address] [facility] NO KNOWN ALLERGIES A list of active and pending outpatient prescriptions dispensed from this local [place] and dispensed remotely from another [place] or [facility] facility as well as local, pending and [...] Medications (including Supplies): Active Outpatient Medications Status ========= 1) CARBOXYMETHYLCELLULOSE NA 0.5% OPH SOLN INSTILL 1 ACTIVE DROP IN EACH EYE FOUR TIMES DAILY 2) HYDROPHILIC (EQV EUCERIN) TOP CREAM APPLY SMALL ACTIVE AMOUNT TOPICALLY FOUR TIMES DAILY NEEDED TO SOFTEN THE SKIN 3) MELATONIN 3MG CAP/TAB TAKE TWO BY MOUTH ONCE DAILY ACTIVE (S) FOR SLEEP 4) NYSTATIN [id number] UNT/ML SUSP TAKE 10 ML BY MOUTH ACTIVE DIRECTED SOAK DENTURES IN LIQUID OVERNIGHT Active Non-VA Medications Status ========= 1) Non-VA LORATADINE 10MG TAB 10MG MOUTH ONCE DAILY ACTIVE NEEDED 2) Non-VA NON-VA DRUG ASSESSMENT DONE CAP/TAB MOUTH ACTIVE 3) Non-VA OFLOXACIN 0.3% OPH SOLN 1 DROP RIGHT EYE FOUR ACTIVE TIMES DAILY 7 Total Medications No Active Remote Medications for this patient /es/ LORENA COLLINS MD [facility] Signed: 02/23/2024 11:09 LORENA COLLINS [facility] Feb 23, 2024 10:48 AM PRIMARY CARE PHYSICIAN NOTE: LOCAL TITLE: PRIMARY CARE/PROVIDER STANDARD TITLE: PRIMARY CARE PHYSICIAN NOTE DATE OF NOTE: FEB 23, 2024@10:48 ENTRY DATE: FEB 23, 2024@10:49:03 AUTHOR: LORENA COLLINS EXP COSIGNER: URGENCY: STATUS: COMPLETED PRIMARY CARE/PROVIDER Has ADDENDA PT CONFIRMED HIS IDENTITY VIA HIS FULL NAME, DATE AND SOCIAL SECURITY NUMBER.VERBAL CONSENT OBTAINED. CHIEF COMPLAINT: ANNUAL VISIT BP: 155/92 (02/23/2024 10:29) Pain: 8 (02/23/2024 10:29) Height: 68 in [172.7 cm] (11/25/2022 07:25) Weight: 230 lb [104.33 kg] (02/23/2024 10:29) Pulse: 71 (02/23/2024 10:29) Respiration: 20 (02/23/2024 10:29) Temperature: 97.6 F [36.4 C] (02/23/2024 10:29) BMI: FEB 23, 2024@10:29:46 35.0 02/23/24 @ 1029 PULSE OXIMETRY: 95 SUBJECTIVE: Vet RTC for 6 mo's physical with nonfasting labs. Vet c/o, I feel run down all the time. I get tired really easy. C/O exacerbation of chronic right knee pain, rated 8/10; Had surgery years ago. HPI: 63 year old MALE presents to the [facility]. 1. ALLERGIC RHINITIS - STABLE ON LORATIDINE 2. HYPERLIPIDEMIA - SLIGHTLY HIGH, DISCUSSED DIET, DOES NOT WANT STATIN 3. FATIGUE - I feel run down all the time. I get tired really easy FEELS WORN OUT ALL THE TIME. DOES NOT SLEEP WELL STATES HE NAPS DURING THE DAY -- DISCUSSED AVOIDING NAPS, MELATONIN 4. CHRONIC RIGHT KNEE PAIN - C/O exacerbation of chronic right knee pain, rated 8/10; Had surgery years ago TORN ACL USING NAPROXEN -- MRI RIGHT KNEE NON [place] PROVIDERS:NONE LABS REVIEWED AT VISIT, INFORMATION GIVEN ON HOW TO ACCESS [facility] TO REVIEW LABS FURTHER. 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 Vertigo 01/21 REFERRED TO NEUROLOGY 02/20 MRI BRAIN NL 2. Trigger finger 01/21 RIGHT INDEX FINGER - SENT TO HAND SPECIALIST 3. Pain radiating to left shoulder 02/19 Left rotator cuff tear referred to ortho 4. Intermittent alternating exotropia 5. Erectile dysfunction 6. Osteoarthritis of knee 7. Osteoarthritis of shoulder 8. Foot pain 9. Low back pain 10. Hyperlipidemia 11. Gastroesophageal reflux disease without esophagitis 12. Osteoarthritis (SNOMED CT [id number]) 13. Insomnia 14. Foot pain (SNOMED CT 22325012) 15. Pain in joint involving shoulder region (ICD-9-CM 719.41) 16. Allergic rhinitis * (ICD-9-CM 477.9) 17. Vasectomy Status (ICD-9-CM V26.52) 18. Low Back Pain * (ICD-9-CM 724.2) 19. Hearing loss * (ICD-9-CM 389.9) 20. Glaucoma, Suspect (ICD-9-CM 365.00) 21. Osteoarthrosis involving the knee (ICD-9-CM 715.98) Right 22. Major Depression, recurrent (ICD-9-CM 296.30) 23. 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 Hyperlipidemia * (ICD-9-CM 272.4) 26. GERD PAST SURGICAL HISTORY: SURGERIES - NONE FOUND ALLERGIES:INSECT STINGS, [place]PPERMINT FAMILY HISTORY: MEDICATIONS: Active Outpatient Medications (including Supplies): Issue Date Status Last Fill Active Outpatient Medications Refills Expiration ========= 1) CARBOXYMETHYLCELLULOSE NA 0.5% OPH SOLN ACTIVE Issu:11-15-23 Qty: 15 for 30 days Sig: INSTILL 1 Refills: 8 Last:11-15-23 DROP IN EACH EYE FOUR TIMES DAILY Expr:11-15-24 2) HYDROPHILIC (EQV EUCERIN) TOP CREAM ACTIVE Issu:08-05-23 Qty: 454 for 90 days Sig: APPLY SMALL Refills: 1 Last:11-15-23 AMOUNT TOPICALLY FOUR TIMES DAILY Expr:08-05-24 NEEDED TO SOFTEN THE SKIN 3) NYSTATIN [id number] UNT/ML SUSP Qty: 180 ACTIVE Issu:06-10-23 for 7 days Sig: TAKE 10 ML BY MOUTH Refills: 0 Last:10-20-23 DIRECTED SOAK DENTURES IN LIQUID Expr:06-10-24 OVERNIGHT Start Date Active Non-VA Medications Refills Expiration ========= 1) Non-VA LORATADINE 10MG TAB SiMG ACTIVE MOUTH ONCE DAILY NEEDED 2) Non-VA NON-VA DRUG ASSESSMENT DONE ACTIVE CAP/TAB Sig: MOUTH 3) Non-VA OFLOXACIN 0.3% OPH SOLN Si ACTIVE DROP RIGHT EYE FOUR TIMES DAILY 6 Total Medications REVIEW OF SYSTEMS: GENERAL: No [...] TOTAL TIME SPENT: >30 MINS FOLLOW UP: as directed /franki COLLINS MD [facility] Signed: 02/23/2024 11:08 03/28/2024 ADDENDUM STATUS: COMPLETED calls to check process of scheduling knee MRI as he has not heard back to schedule. please order /kaylin/ DWAYNE ZHENG PRIMARY CARE LICENSED PRACTICAL NURSE-[facility] Signed: 03/28/2024 10:59 Receipt Acknowledged By: 03/28/2024 12:03 /franki COLLINS MD [facility] 03/28/2024 ADDENDUM STATUS: COMPLETED PLEASE ORDER RIGHT KNEE MRI TY /franki COLLINS MD [facility] Signed: 03/28/2024 12:04 Receipt Acknowledged By: 03/29/2024 12:51 /es/ DUSTIN PENA, RN NURSING SERVICE 04/13/2024 ADDENDUM STATUS: COMPLETED MRI KNEE (RIGHT) W/O CONT Exm Date: APR 12, 2024@07:05 Req Phys: COLLINS,LORENA Pat Loc: [facility] (Req'g Loc) Img Loc: [facility] MRI Service: [place] [address] (Case [id number] COMPLETE)MRI KNEE (RIGHT) W/O CONT (MRI Detailed) CPT:76751 Proc Modifiers : RIGHT CPT Modifiers : RT RIGHT SIDE Reason for Study: right knee pain Clinical History: Report Status: Verified Date Reported: APR 12, 2024 Date Verified: APR 12, 2024 Pressroom Supervisor E-Sig:/ES/SHADE PÉREZ DO Report: PROCEDURE: MRI KNEE (RIGHT) W/O CONT CLINICAL INDICATION: right knee pain COMPARISON: X-rays of the right knee dated 08/03/2023 TECHNIQUE: Multiplanar multi-sequence MR images of the Right knee were obtained without contrast. FINDINGS: Postsurgical right knee. Bones: No acute fracture No aggressive osseous lesions Articular cartilage: The articular cartilage within the patellofemoral compartment is reasonably intact Moderate to advanced degenerative changes involving the articular cartilage overlying the weightbearing portion of the medial femoral condyle and the opposing tibial plateau in a region measuring approximately 23 mm AP x 18 mm transverse The articular cartilage within the lateral compartment is reasonably intact There are scattered marginal osteophytes Joint effusion: Wpezerbu-vh-gnfuf volume knee joint effusion Medial meniscus: Complex tear involving the body and posterior horn of the medial meniscus with mild medial subluxation of the body and involvement of the tibial and femoral surfaces Lateral meniscus: Very small, gracile, partially healed horizontal tear involving the posterior horn of the lateral meniscus with extension to the tibial surface Medial patellofemoral retinaculum: Intact Lateral patellofemoral retinaculum: Intact Anterior cruciate ligament: Redemonstration of postsurgical changes consistent with ACL reconstruction The fibers of the ACL graft are intact There is also mild widening of the tibial tunnel, which is nonspecific, but may be due to a degree of tibial tunnel syndrome in the appropriate clinical setting No arthrofibrosis Posterior cruciate ligament: Mild degenerative changes involving the PCL Medial collateral ligament: Intact Fibular collateral ligament: Intact Extensor mechanism: Intact quadriceps tendon Mild tendinopathy involving the patellar tendon with superimposed postsurgical changes Oliva cyst: No Oliva's cyst Posterior lateral corner: No acute posterior lateral corner injury Surrounding musculature: The surrounding musculature demonstrates age appropriate MR signal characteristics Vascular structures: No popliteal aneurysm Neural structures: Grossly intact Subcutaneous soft tissues: Very mild anterior subcutaneous edema Impression: Right knee Meniscal findings as described above Articular cartilage findings as described above Redemonstration of postsurgical changes consistent with ACL reconstruction The fibers of the ACL graft are intact There is also mild widening of the tibial tunnel, which is nonspecific, but may be due to a degree of tibial tunnel syndrome in the appropriate clinical setting No arthrofibrosis Mild degenerative changes involving the PCL Mild tendinopathy involving the patellar tendon with superimposed postsurgical changes Gjixbyzu-ac-mghnn volume knee joint effusion Please see above for additional findings. Follow-up with the orthopedic surgical service is recommended. A/P 1. RIGHT MENISCAL TEAR - PLEASE NOTIFY PT AND REFER TO ORTHO /es/ LORENA COLLINS MD [facility] Signed: 04/13/2024 07:36 Receipt Acknowledged By: * AWAITING SIGNATURE * DUSTIN PENA [facility]
--- OUTSIDE RECORDS SUMMARY | 2024-09-25 15:30 | XMS_ITS | Encounter Summary ---
Author Name [facility] Address [address] [place] [address] Care Team Providers Care Machine Operator Hop Picker Name Role Phone LORENA COLLINS Primary Care Provider Unavailabl e Selected Encounter This section includes the information on record at [facility] for the Encounter. Date/Time Encounter Type Encounter Description Reason Provider Source Oct 14, 2023 11:30 AM OFFICE O/P EST LOW 20 MIN OPTOMETRY ICD-10-CM H40.023 Open angle with borderline findings, high risk, bilateral DORSEY,CORWIN ABHISHEK IHE Encounter Template Text not used by [place] Assessments - Encounter Diagnoses This section includes the primary and secondary diagnoses documented for the Encounter. Date/Time Primary/Secondary Diagnosis Diagnosis Name Provider Source Oct 14, 2023 10:59 AM PRIMARY Open angle with borderline findings, high risk, bilateral LITZY DORSEYARY ABHISHEK [facility] Oct 14, 2023 10:59 AM SECONDARY Age-related nuclear cataract, bilateral CORWIN DORSEY [facility] Oct 14, 2023 10:59 AM SECONDARY Dermatochalasis of left upper eyelid PEREZ,CHARITYTA ZOYA [facility] Oct 14, 2023 10:59 AM SECONDARY Dermatochalasis of right upper eyelid PEREZ,CARLA [facility] Oct 14, 2023 10:59 AM SECONDARY Dry eye syndrome of bilateral lacrimal glands CORWIN DORSEY [facility] Oct 14, 2023 10:59 AM SECONDARY Presbyopia CORWIN DORSEY [facility] Plan of Treatment: Future Appointments (+ 6 months) and Future Tests (+/- 45 days) The Plan of Treatment section includes future care activities for the patient from all [place] treatmentfacilities. This section includes future appointments and future orders which are active, pending or scheduled. Future Appointments This section includes appointments that were scheduled to occur 6 months from the date of the Encounter, up to a maximum of 20 appointments. The data comes from all [place] treatment facilities. Appointment Date/Time Appointment Type Appointme nt Facility Name Nov 15, 2023 10:00 AM AMBULATORY - MEDICINE [facility] Nov 15, 2023 11:15 AM AMBULATORY - NONE [facility] Feb 23, 2024 09:30 AM AMBULATORY - NONE [facility] Feb 23, 2024 10:30 AM AMBULATORY - MEDICINE [facility] Apr 12, 2024 07:30 AM AMBULATORY - NONE [facility] Social History: Smoking Status (Most current) and Tobacco Use (All prior to encounter date) This section includes the most current, and the historical, smoking and tobacco- related health factors from the [facility] facility where the Encounter took place. Current Smoking Status This section includes the most current smoking, or tobacco-related health factor, from the [facility] facility where the Encounter took place. Date/Time Current Smoking Status Comment Marga ity Nov 25, 2022 07:30 AM VA-TOBACCO NEVER USED [facility] Tobacco Use History This section includes a history of the smoking, or tobacco-related health factors, that were collected on or before the date of the Encounter. The data comes from the [place] facility where the Encounter took place. Date/Time Smoking Status/Tobacco Use Comment F acility Aug 11, 2021 01:00 PM VA-TOBACCO NEVER USED [facility] Feb 29, 2020 11:02 AM VA-TOBACCO FORMER USER [facility] Feb 29, 2020 11:02 AM VA-TOBACCO QUIT 15 YRS OR MORE [facility] Oct 31, 2018 04:26 PM V16 TOBACCO USE SCREEN [facility] Oct 31, 2018 04:26 PM VA-TOBACCO FORMER USER [facility] Oct 31, 2018 04:26 PM VA-TOBACCO QUIT 15 YRS OR MORE [facility] Mar 24, 2018 07:49 AM V16 LIFETIME NON-TOBACCO USER [facility] Mar 24, 2018 07:49 AM V16 TOBACCO USE SCREEN [facility] Mar 23, 2017 07:40 AM V16 LIFETIME NON-TOBACCO USER [facility] Mar 23, 2017 07:40 AM V16 TOBACCO USE SCREEN [facility] Mar 20, 2016 08:30 AM V16 LIFETIME NON-TOBACCO USER [facility] Mar 20, 2016 08:30 AM V16 TOBACCO USE SCREEN [facility] Jan 24, 2015 09:08 AM V16 LIFETIME NON-TOBACCO USER [facility] Jan 24, 2015 09:08 AM V16 TOBACCO USE SCREEN [facility] Nov 23, 2013 08:35 AM V16 TOBACCO CESSATION >7 YEARS [facility] Nov 23, 2013 08:35 AM V16 TOBACCO USE SCREEN [facility] Nov 29, 2012 09:12 AM V16 LIFETIME NON-TOBACCO USER [facility] Nov 29, 2012 09:12 AM V16 TOBACCO USE SCREEN [facility] Nov 09, 2011 09:39 AM V16 TOBACCO CESSATION >7 YEARS [facility] Nov 09, 2011 09:39 AM V16 TOBACCO USE SCREEN [facility] Nov 10, 2010 09:16 AM V16 TOBACCO CESSATION >7 YEARS [facility] Nov 10, 2010 09:16 AM V16 TOBACCO USE SCREEN [facility] Nov 15, 2009 10:29 AM V16 TOBACCO CESSATION >7 YEARS [facility] Nov 15, 2009 10:29 AM V16 TOBACCO USE SCREEN [facility] Nov 28, 2008 08:56 AM V16 TOBACCO CESSATION >7 YEARS [facility] Nov 28, 2008 08:56 AM V16 TOBACCO USE SCREEN [facility] Jul 11, 2007 08:53 AM V16 TOBACCO CESSATION >7 YEARS [facility] Jul 11, 2007 08:53 AM V16 TOBACCO USE SCREEN [facility] December 03, 2006 08:57 AM V16 TOBACCO CESSATION >7 YEARS [facility] December 03, 2006 08:57 AM V16 TOBACCO USE SCREEN [facility] May 27, 2006 10:53 AM V16 TOBACCO CESSATION > 12 MONTH S [facility] May 27, 2006 10:53 AM V16 TOBACCO USE SCREEN [facility] Jan 12, 2003 08:53 AM LIFETIME NON-TOBACCO USER [facility] Jul 07, 2001 10:12 AM TOBACCO CESSATION: >10 YEARS [facility] Jan 05, 2001 12:50 PM TOBACCO CESSATION: >10 YEARS [facility] Encounter Notes: All associated encounter notes This section contains the clinical notes associated to the Encounter. Date/Time Encounter Note(s) Provider Source Oct 14, 2023 02:51 PM EYE REPORT: LOCAL TITLE: RETINAL IMAGE TEST PROCEDURE RESULTS STANDARD TITLE: EYE REPORT DATE OF NOTE: OCT 14, 2023@14:51 ENTRY DATE: OCT 14, 2023@14:51:08 AUTHOR: CARLA PEREZ EXP COSIGNER: URGENCY: STATUS: COMPLETED Fundus Photos: WIDE FIELD: (X)Right eye (X) Left eye (X)Color ()FAF-Green ()FAF-Blue UW FIELD: ()Right eye () Left eye ()Color ()FAF-Green ()FAF-Blue AUTO MONTAGE:()Right eye () Left eye ()Color ()FAF-Green ()FAF-Blue STEREO: ()Right eye () Left eye /kaylin/ CARLA PEREZ LPN PRIMARY CARE LICENSED PRACTICAL NURSE-POWERS Signed: 10/14/2023 14:51 CARLA PEREZ [facility] Oct 14, 2023 11:55 AM ORTHOTICS PROSTHET ICS OUTPATIENT NOTE: LOCAL TITLE: EYEGLASS PRESCRIPTION STANDARD TITLE: ORTHOTICS PROSTHETICS OUTPATIENT NOTE DATE OF NOTE: OCT 14, 2023@11:55 ENTRY DATE: OCT 14, 2023@11:55:33 AUTHOR: CORWIN DORSEY EXP COSIGNER: URGENCY: STATUS: COMPLETED EYEGLASS PRESCRIPTION Has ADDENDA [facility] [address] [address] Eye Clinic: Exam Date: Sep Expiration Date: Sep [place]: NED LARA Right Eye: -2.50-0.95e408 Left Eye: -2.25-0.76j945 ADD:+2.00 Lens Style: Progressive Lens Material: Polycarbonate Additional Options: Photochromic /kaylin/ CORWIN DORSEY OD STAFF ENDODONTIC ASSISTANT, [facility] Signed: 10/14/2023 11:55 10/14/2023 ADDENDUM STATUS: COMPLETED Location: [facility] Delivery Instructions: MAIL TO PATIENT NAME/Last 4 NED LARA [id number] [facility] [address] [place] [id number] RX INFORMATION Right Eye: -2.50-0.90t007 Left Eye: -2.25-0.77u387 ADD:+2.00 Lens Style: Progressive Lens Material: Polycarbonate Additional Options: Photochromic demarco END RX INFORMATION FITTING INFORMATION FPD: NPD: Riley: R:33 L:33.5 SEG HT:17 TINT: Shade: END FITTING INFORMATION 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 /es/ CORKY STEWART Derrick Boat Lever Operator Signed: 10/14/2023 12:10 CORWIN DORSEY [facility] Oct 14, 2023 10:57 AM EYE NOTE: LOCAL TITLE: EYE CLINIC STANDARD TITLE: EYE NOTE DATE OF NOTE: OCT 14, 2023@10:57 ENTRY DATE: OCT 14, 2023@10:57:45 AUTHOR: CORWIN DORSEY EXP COSIGNER: URGENCY: STATUS: COMPLETED Patient Age: 63 Last Eye Exam: 2022 Eligibility: PRIMARY ELIGIBILTY CODE - SERVICE CONNECTED 50% to 100% Rated disabilities: LIMITED MOTION OF WRIST 10% SC LUMBOSACRAL OR CERVICAL STRAIN 40% SC MAJOR DEPRESSIVE DISORDER 50% SC Yard Hostler today: Yes Has the patient traveled outside the [place] within the past 30 days? No If yes, where has the patient traveled? Family Ocular History: Glaucoma: No Macular Degeneration: No Blindness: No Patient Medical History: Tobacco: No Mental Status: alert and oriented Allergies: INSECT STINGS, PEPPERMINT Diabetes Mellitus No Hemoglobin A1C 5.6 % (11/25/2022 06:57) Patient Ocular History: Macular degeneration No Glaucoma: Suspect, high risk Eye injuries: rust removed from eye years ago Eye Surgery: None Eye Meds: Refresh AT both eyes 2-3x/day (used yesterday) Visual Acuity: Right eye: 20/25-2; With glasses Left eye: 20/25-1; With glasses Glasses Prescription by Lensometry: Habitual pair: Right eye: -2.50-1.77c343 Left eye: -2.25-1.13c961 Add: +1.75 Progressive Chief Complaint: Established pt here for 1 year HVF 24-2 both eyes/full exam/RNFL OCT/photos. Pt reports having trouble with progressive, bifocal seems to be too high. Denies eye pain or irritation. Using AT 2-3x/day nurse's intake was reviewed and confirmed. Pupils: PERRL without APD OD/OS - 5 mm/5 mm Extraocular muscles: unrestricted OD, unrestricted OS Cover test at distance: alternating exotropia Confrontations: full to finger count OD, full to finger count OS Manifest refraction: 10/14/23 OD -2.50-0.62l916 20/20- OS -2.25-0.68d194 20/20- Add +2.00 20/20 both eyes Intraocular pressure: brought forward from dates listed and updated today DATE TIME OD OS MEDS 04/25/08 1029 16 15 none; tonopen 04/22/09 1341 12 12 none; goldmann 08/05/10 1024 13 13 none; goldmann 08/07/11 1515 12 12 None; goldmann 08/25/12 1223 13 13 none; goldmann 08/25/13 0959 13 12/13 none; goldmann 08/31/14 1520 13 13 none; goldmann 05/21/17 1128 13 10 none; goldmann 05/24/18 1145 13 12/13 none; goldmann 05/23/19 1141 13 13 none; goldmann 11/08/20 1109 13 13 none; goldmann 11/07/21 1102 13 13 none; goldmann 10/13/22 1152 13 12 none; goldmann 10/14/23 1130 16 16 none; goldmann Slit Lamp Exam: Lids/Lashes/Conjunctiva: trace mattering both eyes, upper lid dermatochalasis right>left eye , MRD1 2mm approxmiately both eyes Cornea: small scar temporally right eye; mild to moderately thin tear film both eyes Anterior Chamber: deep/quiet OD, deep/quiet OS Iris: no rubeosis OD, no rubeosis OS Lens: 1-1+ NS both eyes Additional testing: brought forward from dates listed and updated today 04/22/09 Pachymetry OD avg = 535 = +1 OS avg = 542 = +0.5 Visual landeros: 06/10/06 VF 24-2 OU OD full; fair reliability; MD +0.34, PSD 1.53; GHT WNL OS scattered defects; poor reliability due to 7/10 f/l (tech note states fine eye tremor); MD -0.74, PSD 2.04; GHT Borderline 04/22/09 HVF 24-2 OU (restart x 1 right eye) OD mild inferior defects; good reliability; MD +0.01, PSD 1.48; GHT Borderline OS trace inferior defects; good reliability; MD +0.46, PSD 1.22; GHT Borderline 08/07/11 HVF 24-2 OU OD scattered defects x 4 quads, but greatest inf; good reliability; MD -0.67, PSD 2.10; GHT WNL OS trace scattered defects; fair-good reliability; MD -0.52, PSD 1.35; GHT WNL; 1 repeat 08/25/13 HVF 24-2 OU OD trace scattered defects; fair reliability; MD +0.65, PSD 1.43; GHT WNL OS trace scattered defects; fair reliability; MD -0.48, PSD 1.65; GHT WNL 05/21/17 HVF 24-2 OU OD mild to moderate inferocentral defects; good reliability; MD +0.75, PSD 1.49; GHT WNL OS mild to moderate superonasal defects; poor reliability secondary to 8/10 f/l; MD +0.14, PSD 1.63; GHT WNL 05/23/19 HVF 24-2 OU - unable; nurse unavailable 11/08/20 HVF 24-2 OU (right lid taped) OD mild to moderate inferior loss across midline; low reliability secondary to 4/16 f/l; MD 1.05, PSD 2.61; GHT ONL; VFI: 98% OS mild to moderate inferonasal defects; low reliability secondary to /14 f/l and 15% false pos errors; MD 0.82, PSD 2.62; GHT Borderline; VFI: 99% 11/07/21 HVF 24-2 OU OD mild to moderate loss across midline inf>sup; low reliability secondary to 14 f/l; MD 1.45, PSD 2.51; GHT abnormal high sens; VFI: 99% OS mild to moderate inferior loss across midline, mild superonasal defects; low reliability secondary to 3/14 f/l and 20% false pos errors; MD 0.96, PSD 2.82; GHT abnormal high sens; VFI: 98% 10/13/22 HVF 24-2 OU - unable; no nurse coverage 10/14/23 24-[address] both eyes, unreliable both eyes right eye: unreliable; excessive high false positives and fixation losses; MD 3.36, PSD 2.91, GHT abnormally high sensitivity, no glaucomatous defect left eye: unreliable; excessive high FP and fixation losses, MD 7.41, PSD 6.60, GHT abnormally high sensitivity, unreliable, no glaucomatous defect RNFL OCT: 04/25/08 Baseline ONH + RNFL OCT OD RNFL WNL; avg thick = 93.10 OS RNFL WNL; avg thick = 101.01 04/22/09 RNFL OCT OD RNFL WNL; avg thick = 92.05; ss 8 OS RNFL WNL; avg thick = 94.12; ss 10 serial analysis stable both eyes 08/05/09 RNFL OCT OD RNFL trace thinned sup; avg thick = 95.27; ss 10 OS RNFL WNL; avg thick = 95.35; ss 9 serial analysis rather stable both eyes 08/07/11 RNFL OCT OD RNFL mildly thinned sup; avg thick = 94.01; ss 10 OS RNFL WNL; avg thick = 98.55; ss 10 serial analysis: stable both eyes 08/25/13 RNFL OCT OD RNFL WNL; avg thick = 91.26; ss 9 OS RNFL WNL; avg thick = 90.15; ss 10 05/21/17 RNFL OCT: Optic disc cube [id number] OD avg thickness = 88; ss 9/10; no thinning OS avg thickness = 87; ss 9/10; no thinning symmetry: 96% 05/23/19 RNFL OCT: cube OD avg thickness = 89; ss 9/10; no thinning OS avg thickness = 84; ss 8/10; no thinning symmetry: 97%; avg CD 0.7 right and 0.66 left 11/08/20 RNFL OCT: cube OD avg thickness = 86; ss 8/10; trace sup/gisselle thinning OS avg thickness = 86; ss 9/10; no thinning symmetry: 96%; vert CD 0.65 right and 0.62 left 11/07/21 RNFL OCT: cube OD avg thickness = 87; ss 9/10; no thinning OS avg thickness = 84; ss 8/10; no thinning symmetry: 97%; vert CD 0.64 right and 0.63 left 10/13/22 RNFL OCT: cube - unable; no nurse coverage 10/14/23 right: avg RNFL 87, healthy all quadrants, no thinning, avg c/d 0.71 left avg RNFL 85, healthy all quadrants, no thinning, avg c/d 0.66 GCA: 11/08/20 OD avg = 57; ss 10/10; 4 red/1 yel sector OS avg = 69; ss 10/10; 1 red/3 yel sectors 11/07/21 OD avg = 52; ss 8/10; 5 red sectors OS avg = 66; ss 9/10; 3 red sectors Macula OCT: 05/21/17 Baseline macular cube: [id number] OD central thickness = 319; ss 9/10 OS central thickness = 318; ss 8/10 shallow depression each eye 10/14/23 right:ctr thickness 321, decreased foveal pit, no fluid,-stable left: ctr thickness 321, decreased foveal pit, no fluid,-stable 10/14/23 Optic nerve photos Internal Exam: dilation warning, OD, OS, 1.0% Tropicamide on September Media: clear OD, clear OS Optic nerve head: tilted, CD 0.55-0.6 right eye-intact rim right eye ; CD 0.5 sloping inf temp left eye; adequate rims with deep cupping both eyes Vessels: normal OD, normal OS Macula: flat/avascular OD, flat/avascular OS; (+)FLR OU Periphery: no holes, no tears, no hemes OD, no holes, no tears, no hemes OS Assessment: 20/20-, 20/20- 1. high risk glaucoma suspect secondary to moderate nerve cupping right>left -VF 24-2 10/14/23: unreliable -IOP 16/16 today untreated -pachymetry reveals +1/+0.5 correction factors -RNFL OCT good avg thickness each eye; GCA low avg each eye -no family history of glaucoma -hx of low reliability on landeros, recommend monitoring structrually with photos and OCT RNFL. 2. myopia, presbyopia -reports photophobia 3. alternating exotropia with unstable binocular status - unchanged 4. mild blepharitis both eyes - stable 5. mild cataracts - stable 6. dry eye syndrome both eyes 7. lash touching dermatochalasis upper lids both eyes, very bothersome to patient right>left eye Plan: 1. monitor yearly for increases in IOP/cupping -monitor structurally. 2. order new glasses for pt today - OK for progressives/photochromic 3. monitor yearly 4. continue daily lid soaking/cleansing with warm wash rag 5. monitor yearly 6. continue Refresh 0.5% artificial tears 1-2x day/as needed both eyes - renewed today 7. pt to return for superior 64 pt screening landeros lids not taped/lids taped. Exam findings discussed. Pt verbalized understanding of the info given. Return to Clinic: next avail superior 64 pt screening bleph landeros; 1 year/full exam/RNFL OCT or as needed for vision changes /es/ CORWIN DORSEY, OD STAFF ENDODONTIC ASSISTANT, [facility] Signed: 10/14/2023 16:57 CORWIN DORSEY [facility] Oct 14, 2023 10:13 AM EYE NURSING NOTE: LOCAL TITLE: EYE CLINIC/NURSE INTAKE STANDARD TITLE: EYE NURSING NOTE DATE OF NOTE: OCT 14, 2023@10:13 ENTRY DATE: OCT 14, 2023@10:13:57 AUTHOR: KAMINI CHEW EXP COSIGNER: URGENCY: STATUS: COMPLETED Patient Age: 63 Last Eye Exam: 2022 Eligibility: PRIMARY ELIGIBILTY CODE - SERVICE CONNECTED 50% to 100% Rated disabilities: LIMITED MOTION OF WRIST 10% SC LUMBOSACRAL OR CERVICAL STRAIN 40% SC MAJOR DEPRESSIVE DISORDER 50% SC Yard Hostler today: Yes Has the patient traveled outside the [place] within the past 30 days? No If yes, where has the patient traveled? Family Ocular History: Glaucoma: No Macular Degeneration: No Blindness: No Patient Medical History: Tobacco: No Mental Status: alert and oriented Allergies: INSECT STINGS, PEPPERMINT Diabetes Mellitus No Hemoglobin A1C 5.6 % (11/25/2022 06:57) Patient Ocular History: Macular degeneration No Glaucoma: Suspect, high risk Eye injuries: rust removed from eye years ago Eye Surgery: None Eye Meds: Refresh AT both eyes 2-3x/day (used yesterday) Visual Acuity: Right eye: 20/25-2; With glasses Left eye: 20/25-1; With glasses Glasses Prescription by Lensometry: Habitual pair: Right eye: -2.50-1.40m426 Left eye: -2.25-1.82k780 Add: +1.75 Progressive Chief Complaint: Established pt here for 1 year HVF 24-2 both eyes/full exam/RNFL OCT/photos. Pt reports having trouble with progressive, bifocal seems to be too high. Denies eye pain or irritation. Using AT 2-3x/day /kaylin/ [facility] [employer] A Driver (Optometry) Signed: 10/14/2023 10:44 Receipt Acknowledged By: 10/14/2023 10:57 /es/ CORWIN DORSEY OD STAFF ENDODONTIC ASSISTANT, [facility] ROSELINE CHEW [facility]
--- OUTSIDE RECORDS SUMMARY | 2024-09-25 15:30 | XMS_ITS | Continuity of Care Document ---
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 It does not include entries that were removed or entered in error. Problem Status Onset Date Problem Type Date of Resolution Comments Source Allergic rhinitis * (ICD-9-CM 477.9) Active Condition [facility] Chronic Low Back Pain (ICD-9-CM 724.2) Active Condition [facility] CUBITAL TUNNEL Active Condition [facility] Erectile dysfunction Active Condition [facility] Exposure to potentially hazardous substance ([facility] [id number]) Active Condition Mar 06 Entered By: HOLGER BLACKMON Comment: Entered automatically through [facility] Problem List documentation program [facility] Foot pain Active Condition [facility] Foot pain (SNOMED CT 36558520) Active Condition [facility] Gastroesophageal reflux disease without esophagitis Active Condition [facility] GERD Active Condition [facility] Glaucoma, Suspect (ICD-9-CM 365.00) Active Condition [facility] Hearing loss * (ICD-9-CM 389.9) Active Condition [facility] Hyperlipidemia Active Condition Jan 312023 Entered By: LORENA COLLINS Comment: REFUSES STATIN [facility] Hyperlipidemia * (ICD-9-CM 272.4) Active Condition [facility] 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) Active Condition [facility] Insomnia Active Condition [facility] Intermittent alternating exotropia Active Condition [facility] Low back pain Active Condition [facility] Low Back Pain * (ICD-9-CM 724.2) Active Condition [facility] Major Depression, recurrent (ICD-9-CM 296.30) Active Condition [facility] Male Infertility * (ICD-9-CM 606.9) Active Condition [facility] Osteoarthritis (SNOMED CT 551093215) Active Condition [facility] Osteoarthritis of knee Active Condition [facility] Osteoarthritis of shoulder Active Condition [facility] Osteoarthrosis involving the knee (ICD-9-CM 715.98) Active Condition December 03 Entered By: VERONICA IVEY Comment: Right [facility] Pain in joint involving shoulder region (ICD-9-CM 719.41) Active Condition [facility] Pain of right knee joint Active Condition Jul 04, 2024 Entered By: LORENA COLLINS Comment: 07/25 HAD R TKR REFERRED TO PT [facility] Pain radiating to left shoulder Active Condition Feb 24, 2021 Entered By: LORENA COLLINS Comment: 02/19 Left rotator cuff tear referred to ortho [facility] SLEEP DISTURBANCES NEC Active Condition [facility] CRUCIATE LIG KNEE Active Condition [facility] Trigger finger Active Condition Dec Entered By: LORENA COLLINS Comment: 01/21 RIGHT INDEX FINGER - SENT TO HAND SPECIALIST [facility] 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) Active Condition December 03 Entered By: VERONICA IVEY Comment: Left [facility] Vasectomy Status (ICD-9-CM V26.52) Active Condition [facility] Vertigo Active Condition Jan 26 Entered By: LORENA COLLINS Comment: 01/21 REFERRED TO NEUROLOGYJul 2021 Entered By: LORENA COLLINS Comment: 02/20 MRI BRAIN NL [facility] Carpal Tunnel Syndrome * (ICD-9-CM 354.0) Inactive Condition 12/03/2006 [facility] DEPRESSION, NOS Inactive Condition 12/03/2006 [facility] LUMBAGO Inactive Condition 12/03/2006 [facility] Diagnosis: ICD-10-CM M25.561 Pain in right knee Active Diagnosis [facility] Diagnosis: ICD-10-CM Z71.89 Other specified counseling Active Diagnosis [facility] Diagnosis: ICD-10-CM K05.322 Chronic periodontitis, generalized, moderate Active Diagnosis [facility] Diagnosis: ICD-10-CM K03.6 Deposits [accretions] on teeth Active Diagnosis [facility] Diagnosis: ICD-10-CM E78.5 Hyperlipidemia, unspecified Active Diagnosis [facility] Diagnosis: ICD-10-CM H02.831 Dermatochalasis of right upper eyelid Active Diagnosis [facility] Diagnosis: ICD-10-CM H40.023 Open angle with borderline findings, high risk, bilateral Active Diagnosis [facility] Diagnosis: ICD-10-CM M65.311 Trigger thumb, right thumb Active Diagnosis [facility] Diagnosis: ICD-10-CM K08.199 Complete loss of teeth due to oth cause, unspecified class Active Diagnosis [facility] Diagnosis: ICD-10-CM M65.30 Trigger finger, unspecified finger Active Diagnosis [facility] Medications Combined list of outpatient medications from Department of Defense and Veterans Affairs facilities.Medications provided include 1) outpatient medications from the last 15 months, and 2) patient-reported medications. Medication Details Route Status Patient Instructions Prescription Expires Prescription Number Last Dispense Date Ordering Provider Order Date Order Qty Source CARBOXYMETH YLCELLULOSE NA 0.5% SOLN,OPH INSTILL 1 DROP IN EACH EYE FOUR TIMES DAILY OPHTHA LMIC ACTIVE 11/15/2024 [id number] POLSAMPSONK,A NNE F 2023 15 [facility] CARBOXYMETH YLCELLULOSE NA 0.5% SOLN,OPH INSTILL 1 DROP IN EACH EYE FOUR TIMES DAILY OPHTHA LMIC DISCONT INUED 10/14/2023 [id number] 4 POLPAULA NNE F 2022 15 [facility] CLOTRIMAZOL E 10MG YANICK DISSOLVE 1 YANICK CHEEK AND GUM UNTIL DISSOLVE D FIVE TIMES DAILY FOR FUNGAL INFECTIO N IN THE MOUTH BUCCAL 06/28/2024 [id number] KEVIN TOBAR 2023 35 [facility] DICLOFENAC NA 1% GEL,TOP APPLY 2 GRAMS TOPICALL Y FOUR TIMES DAILY NEEDED FOR PAIN AND INFLAMMA TION -DON'T EXCEED 16 GRAMS DAILY TO ANY AFFECTED JOINT OF THE LOWER EXTREMIT IES. DON'T EXCEED 8 GRAMS DAILY TO ANY AFFECTED JOINT OF THE UPPER EXTREMIT IES. DON'T EXCEED A TOTAL DOSE OF 32 GRAMS DAILY OVER ALL JOINTS TOPICA L 10/06/2023 [id number] 4 CAESARMARIANO STARK 2023 200 [facility] HYDROPHILIC (EQV EUCERIN) CREAM,TOP APPLY SMALL AMOUNT TOPICALL Y FOUR TIMES DAILY NEEDED TO SOFTEN THE SKIN TOPICA L ACTIVE 05/30/2025 [id number] 5 COLLINS,A [facility] 2023 454 [facility] HYDROPHILIC (EQV EUCERIN) CREAM,TOP APPLY SMALL AMOUNT TOPICALL Y FOUR TIMES DAILY NEEDED TO SOFTEN THE SKIN TOPICA L DISCONT INUED 08/05/2024 [id number] 4 KARINA,Olvin [facility] 2023 454 [facility] LORATADINE 10MG TAB TAKE ONE TABLET BY MOUTH ONCE DAILY FOR STUFFY/R UNNY NOSE [MAY CAUSE DROWSINE SS] ORAL 11/26/2023 [id number] 4 KARINA,A [facility] 2022 90 [facility] LORATADINE 10MG TAB TAKE ONE TABLET BY MOUTH ONCE DAILY NEEDED ORAL ACTIVE WIN,VERONICA 2017 [facility] MELATONIN 3MG CAP/TAB TAKE TWO BY MOUTH ONCE DAILY FOR SLEEP ORAL ACTIVE 02/23/2025 [id number] KARINA,Olvin [facility] 2023 60 [facility] NAPROXEN 500MG TAB TAKE ONE TABLET BY MOUTH TWICE A DAY NEEDED /* TAKE WITH FOOD, FOR PAIN and INFLAMMA TION */ ORAL 11/26/2023 [id number] 4 KARINA,A [facility] 2022 180 [facility] NON-VA DRUG ASSESSMENT DONE CAP/TAB BY MOUTH ORAL ACTIVE WIN,VERONICA 2011 [facility] NYSTATIN [id number]/M L SUSP,ORAL TAKE 5 ML BY MOUTH FOUR TIMES DAILY FOR FUNGAL INFECTIO N SWISH FOR TWO MINUTES AND SPIT 4 TIMES PER DAY. DO NOT SWALLOW. ORAL ACTIVE 05/30/2025 [id number] 4 KEVIN TOBAR 2023 60 [facility] NYSTATIN [id number]/M L SUSP,ORAL TAKE 10 ML BY MOUTH DIRECTED SOAK DENTURES IN LIQUID OVERNIGH T ORAL DISCONT INUED 06/10/2024 [id number] 4 Bina CHURCHILL 2022 180 [facility] OFLOXACIN 0.3% SOLN,OPH INSTILL 1 DROP IN RIGHT EYE FOUR TIMES DAILY OPHTHA LMIC ACTIVE ANIYAH,YANELIS ITTANY L 2017 [facility] PREDNISONE 20MG TAB TAKE ONE TABLET BY MOUTH TWICE A DAY TO LOWER INFLAMMA TION WITH FOOD ORAL 09/02/2023 [id number] Olvin COLLINS [facility] 2023 14 [facility] Allergies, Adverse Reactions, Alerts Combined list of allergies from Department of Defense and Veterans Affairs facilities. It does not include entries that were removed or entered in error. Substance Category Reaction Severity Reaction type Status Date Reported Comments Source INSECT STINGS Propensity to adverse reaction (finding) active 9 [facility] INSECT STINGS Propensity to adverse reaction (finding) ITCHING,W ATERING EYES, HIVES active 2 [facility] Propensity to adverse reactions to substance (finding) HIVES, Diarrhea, NAUSEA,VO MITING active 2 [facility] OIL Propensity to adverse reactions to substance (finding) active 4 [facility] Immunizations Combined list of available immunizations from the Department of [facility] and Veterans [facility] facilities. Immunization Series Date Given Administered By Site Reaction Lot Number CVX Code Drug Dietetic Technician Status Comments Source TDAP 2022 HALEY ZHENG M LEFT DELTO ID [id number] complet ed [facility] TD(ADULT) UNSPECIFIED FORMULATION 2013 139 complet ed [facility] INFLUENZA, UNSPECIFIED FORMULATION 2006 88 complet ed MADHURI PALMER TD(ADULT) UNSPECIFIED FORMULATION 2003 139 complet ed [facility] INFLUENZA, UNSPECIFIED FORMULATION 2002 88 complet ed [facility] INFLUENZA, UNSPECIFIED FORMULATION 2000 88 complet ed [facility] Results Combined list of recent chemistry, hematology and other laboratory results from Department of Defense and Veterans Affairs, ranging from 15 months to all on record, depending upon the facility. Order Name Results Value Reference Range Date Interpretation Specimen Comments Source GLYCO HGB A1C HEMOGLOBIN A1C/HEMOGLO BIN.TOTAL IN BLOOD BY HPLC 5.5 4.2 - 5.8 02/22 Specimen Type: BLOOD Comment: Values obtained from A1C measurements can vary. For typical A1C assays, a reported value of 7.0 could actually be between 6.72 and 7.28 if measured by a reference method. A reported value of 9.0 could actually be between 8.73 and 9.27. Ref: [email or web address] [email or web address]. Ordering Provider: ROSALINDA COLLINS Report Released Date/Time: Aug 03, 2023 07:56 AM Reporting Lab: [facility] [address] [place] [phone] Performing Lab: [facility] [address] [place] [phone] [facility] URINE ALBUMIN, RANDOM URINE MICROALBUMI N [MASS/VOLUM E] IN URINE 0.7 mg/dL <1.8 - 1.8 02/22 Specimen Type: URINE No comment entered. Ordering Provider: ROSALINDA COLLINS Report Released Date/Time: Aug 03, 2023 07:56 AM Reporting Lab: [facility] [address] [place] [phone] Performing Lab: [facility] [address] [place] [phone] [facility] URINE ALBUMIN, RANDOM URINE MICROALBUMI N/CREATININ E [MASS RATIO] IN URINE 3 <29 - 29 02/22 Specimen Type: URINE No comment entered. Ordering Provider: ROSALINDA COLLINS Report Released Date/Time: Aug 03, 2023 07:56 AM Reporting Lab: [facility] [address] [place] [phone] Performing Lab: [facility] [address] [place] [phone] [facility] URINE ALBUMIN, RANDOM URINE CREATININE [MASS/VOLUM E] IN URINE 234 mg/dL 02/22 Specimen Type: URINE No comment entered. Ordering Provider: ROSALINDA COLLINS Report Released Date/Time: Aug 03, 2023 07:56 AM Reporting Lab: [facility] [address] [facility] [address] Performing Lab: [facility] [address] [facility] [address] [facility] LIPID PROFILE (FV) CHOLESTEROL [MASS/VOLUM E] IN SERUM OR PLASMA 221 mg/dL 118 - 200 02/22 H Specimen Type: PLASMA No comment entered. Ordering Provider: ROSALINDA COLLINS Report Released Date/Time: Aug 03, 2023 07:56 AM Reporting Lab: [facility] [address] [facility] [address] Performing Lab: [facility] [address] [facility] LIPID PROFILE (FV) TRIGLYCERID E [MASS/VOLUM E] IN SERUM OR PLASMA 153 mg/dL <200 - 200 02/22 Specimen Type: PLASMA No comment entered. Ordering Provider: ROSALINDA COLLINS Report Released Date/Time: Aug 03, 2023 07:56 AM Reporting Lab: [facility] [address] [facility] [address] Performing Lab: [facility] [address] [facility] [address] [facility] LIPID PROFILE (FV) CHOLESTEROL IN LDL [MASS/VOLUM E] IN SERUM OR PLASMA BY CALCULATION 149 mg/dL 02/22 Specimen Type: PLASMA No comment entered. Ordering Provider: ROSALINDA COLLINS Report Released Date/Time: Aug 03, 2023 07:56 AM Reporting Lab: [facility] [address] [facility] [address] Performing Lab: [facility] [address] [facility] [address] [facility] LIPID PROFILE (FV) CHOLESTEROL IN HDL [MASS/VOLUM E] IN SERUM OR PLASMA 41 mg/dL 40 02/22 Specimen Type: PLASMA No comment entered. Ordering Provider: ROSALINDA COLLINS Report Released Date/Time: Aug 03, 2023 07:56 AM Reporting Lab: [facility] [address] [facility] [address] Performing Lab: [facility] [address] [facility] [address] [facility] TSH (FV) THYROTROPIN [UNITS/VOLU ME] IN SERUM OR PLASMA BY DETECTION LIMIT <= 0.05 MIU/L 3.04 u[IU]/m L 0.45 - 5.33 02/22 Specimen Type: SERUM No comment entered. Ordering Provider: ROSALINDA COLLINS Report Released Date/Time: Aug 03, 2023 07:56 AM Reporting Lab: [facility] [address] [facility] [address] Performing Lab: [facility] [address] [facility] [address] [facility] VITAMIN B12 COBALAMIN (VITAMIN B12) [MASS/VOLUM E] IN SERUM OR PLASMA 230 pg/mL 180 - 914 02/22 Specimen Type: SERUM No comment entered. Ordering Provider: ROSALINDA COLLINS Report Released Date/Time: Aug 03, 2023 07:56 AM Reporting Lab: [facility] [address] [facility] [address] Performing Lab: [facility] [address] [facility] [address] [facility] RENAL+SHELBY ER PROFILE GLUCOSE [MASS/VOLUM E] IN SERUM OR PLASMA 107 mg/dL 70 - 110 02/22 Specimen Type: PLASMA No comment entered. Ordering Provider: ROSALINDA COLLINS Report Released Date/Time: Aug 03, 2023 07:56 AM Reporting Lab: [address] [address] Performing Lab: [address] [address] [facility] RENAL+[facility] ER PROFILE ALBUMIN [MASS/VOLUM E] IN SERUM OR PLASMA 4.2 g/dL 3.4 - 5.0 02/22 Specimen Type: PLASMA No comment entered. Ordering Provider: ROSALINDA COLLINS Report Released Date/Time: Aug 03, 2023 07:56 AM Reporting Lab: [facility] [address] [place] [phone] Performing Lab: [address] [address] [facility] RENAL+[facility]HEL[facility] ER PROFILE ASPARTATE AMINOTRANSF ERASE [ENZYMATIC ACTIVITY/VO LUME] IN SERUM OR PLASMA 20 U/L 15 - 37 02/22 Specimen Type: PLASMA No comment entered. Ordering Provider: ROSALINDA COLLINS Report Released Date/Time: Aug 03, 2023 07:56 AM Reporting Lab: [facility] [address] [place] [phone] Performing Lab: [facility] [address] [place] [phone] [facility] RE[facility] ER PROFILE BILIRUBIN.T OTAL [MASS/VOLUM E] IN SERUM OR PLASMA 0.81 mg/dL 0.3 - 1.2 02/22 Specimen Type: PLASMA No comment entered. Ordering Provider: ROSALINDA COLLINS Report Released Date/Time: Aug 03, 2023 07:56 AM Reporting Lab: [facility] [address] [address] Performing Lab: [facility] [address] [address] [facility] RE[facility] ER PROFILE CHLORIDE [MOLES/VOLU ME] IN SERUM OR PLASMA 102 mmol/L 98 - 107 02/22 Specimen Type: PLASMA No comment entered. Ordering Provider: ROSALINDA COLLINS Report Released Date/Time: Aug 03, 2023 07:56 AM Reporting Lab: [facility] [address] [address] Performing Lab: [facility] [address] [place] [phone] [facility] RE[facility] ER PROFILE PROTEIN [MASS/VOLUM E] IN SERUM OR PLASMA 6.9 g/dL 6.1 - 7.9 02/22 Specimen Type: PLASMA No comment entered. Ordering Provider: ROSALINDA COLLINS Report Released Date/Time: Aug 03, 2023 07:56 AM Reporting Lab: [facility] [address] [address] Performing Lab: [facility] [address] [place] [phone] [facility] ER PROFILE SODIUM [MOLES/VOLU ME] IN SERUM OR PLASMA 136 mmol/L 136 - 145 02/22 Specimen Type: PLASMA No comment entered. Ordering Provider: ROSALINDA COLLINS Report Released Date/Time: Aug 03, 2023 07:56 AM Reporting Lab: [facility] [address] [facility] [address] Performing Lab: [facility] [address] [place] [phone] [facility] RE[facility] ER PROFILE POTASSIUM [MOLES/VOLU ME] IN SERUM OR PLASMA 3.5 mmol/L 3.5 - 5.1 02/22 Specimen Type: PLASMA No comment entered. Ordering Provider: ROSALINAD COLLINS Report Released Date/Time: Aug 03, 2023 07:56 AM Reporting Lab: [facility] [address] [place] [phone] Performing Lab: [facility] [address] [place] [phone] [facility] PROFILE CARBON DIOXIDE, TOTAL [MOLES/VOLU ME] IN SERUM OR PLASMA 26 mmol/L 21 - 32 02/22 Specimen Type: PLASMA No comment entered. Ordering Provider: ROSALINDA COLLINS Report Released Date/Time: Aug 03, 2023 07:56 AM Reporting Lab: [facility] [address] [place] [phone] Performing Lab: [facility] [address] [place] [phone] [facility] ER PROFILE UREA NITROGEN [MASS/VOLUM E] IN SERUM OR PLASMA 18 mg/dL 6 - 20 02/22 Specimen Type: PLASMA No comment entered. Ordering Provider: ROSALINDA COLLINS Report Released Date/Time: Aug 03, 2023 07:56 AM Reporting Lab: [facility] [address] [place] [phone] Performing Lab: [facility] [address] [place] [phone] [facility] PROFILE CALCIUM [MASS/VOLUM E] IN SERUM OR PLASMA 8.8 mg/dL 8.9 - 10.3 02/22 L Specimen Type: PLASMA No comment entered. Ordering Provider: ROSALINDA COLLINS Report Released Date/Time: Aug 03, 2023 07:56 AM Reporting Lab: [facility] [address] [place] [phone] Performing Lab: [facility] [address] [place] [phone] [facility] PROFILE ALANINE AMINOTRANSF ERASE [ENZYMATIC ACTIVITY/VO LUME] IN SERUM OR PLASMA BY NO ADDITION OF P-5'-P 22 U/L 0 - 63 02/22 Specimen Type: PLASMA No comment entered. Ordering Provider: ROSALINDA COLLINS Report Released Date/Time: Aug 03, 2023 07:56 AM Reporting Lab: [facility] [address] [address] Performing Lab: [facility] [address] [address] [facility] RENAL[facility]HEL[facility] ER PROFILE ALKALINE PHOSPHATASE [ENZYMATIC ACTIVITY/VO LUME] IN SERUM OR PLASMA 67 U/L 32 - 126 02/22 Specimen Type: PLASMA No comment entered. Ordering Provider: ROSALINDA COLLINS Report Released Date/Time: Aug 03, 2023 07:56 AM Reporting Lab: [facility] [address] [address] Performing Lab: [facility] [address] [phone] [facility] RENAL[facility]HEL[facility] ER PROFILE CREATININE [MASS/VOLUM E] IN SERUM OR PLASMA 0.86 mg/dL .61 - 1.24 02/22 Specimen Type: PLASMA No comment entered. Ordering Provider: ROSALINDA COLLINS Report Released Date/Time: Aug 03, 2023 07:56 AM Reporting Lab: [facility] [address] [address] Performing Lab: [facility] [address] [address] [facility] RENAL[facility] ER PROFILE GLOMERULAR FILTRATION RATE/1.73 SQ M.PREDICTED [VOLUME RATE/AREA] IN SERUM, PLASMA OR BLOOD BY CREATININE- BASED FORMULA (CKD-EPI 2020) >90 90 02/22 Specimen Type: PLASMA No comment entered. Ordering Provider: ROSALINDA COLLINS Report Released Date/Time: Aug 03, 2023 07:56 AM Reporting Lab: [facility] [address] [address] Performing Lab: [facility] [address] [address] [facility] CBC (FV) PLATELET MEAN VOLUME [ENTITIC VOLUME] IN BLOOD BY AUTOMATED COUNT 6.4 fL 7.4 - 10.4 07/24 /2024 L Specimen Type: BLOOD Comment: Values obtained from A1C measurements can vary. For typical A1C assays, a reported value of 7.0 could actually be between 6.72 and 7.28 if measured by a reference method. A reported value of 9.0 could actually be between 8.73 and 9.27. Ref: [email or web address]. Ordering Provider: ROSALINDA COLLINS Report Released Date/Time: Aug 03, 2023 07:56 AM Reporting Lab: [facility] [address] [place] [phone] Performing Lab: [facility] [address] [place] [phone] [facility] CBC (FV) ERYTHROCYTE DISTRIBUTIO N WIDTH [RATIO] BY AUTOMATED COUNT 15.4 11.5 - 14.5 02/22 H Specimen Type: BLOOD Comment: Values obtained from A1C measurements can vary. For typical A1C assays, a reported value of 7.0 could actually be between 6.72 and 7.28 if measured by a reference method. A reported value of 9.0 could actually be between 8.73 and 9.27. Ref: [email or web address]. Ordering Provider: ROSALINDA COLLINS Report Released Date/Time: Aug 03, 2023 07:56 AM Reporting Lab: [facility] [address] [place] [phone] Performing Lab: [facility] [address] [place] [phone] [facility] CBC (FV) HEMATOCRIT [VOLUME FRACTION] OF BLOOD BY AUTOMATED COUNT 46.4 40 - 52 02/22 Specimen Type: BLOOD Comment: Values obtained from A1C measurements can vary. For typical A1C assays, a reported value of 7.0 could actually be between 6.72 and 7.28 if measured by a reference method. A reported value of 9.0 could actually be between 8.73 and 9.27. Ref: [email or web address]. Ordering Provider: ROSALINDA COLLINS Report Released Date/Time: Aug 03, 2023 07:56 AM Reporting Lab: [facility] [address] [place] [phone] Performing Lab: [address] [address] [facility] CBC (FV) HEMOGLOBIN [MASS/VOLUM E] IN BLOOD 15.5 g/dL 13 - 18 02/22 Specimen Type: BLOOD Comment: Values obtained from A1C measurements can vary. For typical A1C assays, a reported value of 7.0 could actually be between 6.72 and 7.28 if measured by a reference method. A reported value of 9.0 could actually be between 8.73 and 9.27. Ref: [email or web address]. Ordering Provider: ROSALINDA COLLINS Report Released Date/Time: Aug 03, 2023 07:56 AM Reporting Lab: [address] [address] Performing Lab: [address] [phone] [facility] CBC (FV) PLATELETS [#/VOLUME] IN BLOOD BY AUTOMATED COUNT 198 10*3/uL 150 - 440 02/22 Specimen Type: BLOOD Comment: Values obtained from A1C measurements can vary. For typical A1C assays, a reported value of 7.0 could actually be between 6.72 and 7.28 if measured by a reference method. A reported value of 9.0 could actually be between 8.73 and 9.27. Ref: [email or web address]. Ordering Provider: ROSALINDA COLLINS Report Released Date/Time: Aug 03, 2023 07:56 AM Reporting Lab: [address] [phone] Performing Lab: [address] [phone] [facility] CBC (FV) LEUKOCYTES [#/VOLUME] IN BLOOD BY AUTOMATED COUNT 6.8 10*3/uL 3.8 - 10.6 02/22 Specimen Type: BLOOD Comment: Values obtained from A1C measurements can vary. For typical A1C assays, a reported value of 7.0 could actually be between 6.72 and 7.28 if measured by a reference method. A reported value of 9.0 could actually be between 8.73 and 9.27. Ref: [email or web address]. Ordering Provider: ROSALINDA COLLINS Report Released Date/Time: Aug 03, 2023 07:56 AM Reporting Lab: [facility] [address] [place] [phone] Performing Lab: [facility] [address] [place] [phone] [facility] CBC (FV) ERYTHROCYTE S [#/VOLUME] IN BLOOD BY AUTOMATED COUNT 5.68 10*6/uL 4.4 - 5.9 02/22 Specimen Type: BLOOD Comment: Values obtained from A1C measurements can vary. For typical A1C assays, a reported value of 7.0 could actually be between 6.72 and 7.28 if measured by a reference method. A reported value of 9.0 could actually be between 8.73 and 9.27. Ref: [email or web address]. Ordering Provider: ROSALINDA COLLINS Report Released Date/Time: Aug 03, 2023 07:56 AM Reporting Lab: [facility] [address] [place] [phone] Performing Lab: [facility] [address] [place] [phone] [facility] CBC (FV) MCV [ENTITIC VOLUME] BY AUTOMATED COUNT 81.7 fL 80 - 100 02/22 Specimen Type: BLOOD Comment: Values obtained from A1C measurements can vary. For typical A1C assays, a reported value of 7.0 could actually be between 6.72 and 7.28 if measured by a reference method. A reported value of 9.0 could actually be between 8.73 and 9.27. Ref: [email or web address]. Ordering Provider: ROSALINDA COLLINS Report Released Date/Time: Aug 03, 2023 07:56 AM Reporting Lab: [facility] [address] [place] [phone] Performing Lab: [facility] [address] [place] [phone] [facility] CBC (FV) MCH [ENTITIC MASS] BY AUTOMATED COUNT 27.3 pg 26 - 34 02/22 Specimen Type: BLOOD Comment: Values obtained from A1C measurements can vary. For typical A1C assays, a reported value of 7.0 could actually be between 6.72 and 7.28 if measured by a reference method. A reported value of 9.0 could actually be between 8.73 and 9.27. Ref: [email or web address]. Ordering Provider: ROSALINDA COLLINS Report Released Date/Time: Aug 03, 2023 07:56 AM Reporting Lab: [facility] [address] [place] [phone] Performing Lab: [facility] [address] [place] [phone] [facility] CBC (FV) MCHC [MASS/VOLUM E] BY AUTOMATED COUNT 33.5 g/dL 32 - 36 02/22 Specimen Type: BLOOD Comment: Values obtained from A1C measurements can vary. For typical A1C assays, a reported value of 7.0 could actually be between 6.72 and 7.28 if measured by a reference method. A reported value of 9.0 could actually be between 8.73 and 9.27. Ref: [email or web address]. Ordering Provider: ROSALINDA COLLINS Report Released Date/Time: Aug 03, 2023 07:56 AM Reporting Lab: [facility] [address] [place] [phone] Performing Lab: [facility] [address] [place] [phone] [facility] CBC (FV) SEGMENTED NEUTROPHILS /100 LEUKOCYTES IN BLOOD BY AUTOMATED COUNT 63.4 02/22 Specimen Type: BLOOD Comment: Values obtained from A1C measurements can vary. For typical A1C assays, a reported value of 7.0 could actually be between 6.72 and 7.28 if measured by a reference method. A reported value of 9.0 could actually be between 8.73 and 9.27. Ref: [email or web address]. Ordering Provider: ROSALINDA COLLINS Report Released Date/Time: Aug 03, 2023 07:56 AM Reporting Lab: [facility] [address] [place] [phone] Performing Lab: [facility] [address] [place] [phone] [facility] CBC (FV) NEUTROPHILS [#/VOLUME] IN BLOOD BY AUTOMATED COUNT 4.3 10*3/uL 2.4 - 7.6 02/22 Specimen Type: BLOOD Comment: Values obtained from A1C measurements can vary. For typical A1C assays, a reported value of 7.0 could actually be between 6.72 and 7.28 if measured by a reference method. A reported value of 9.0 could actually be between 8.73 and 9.27. Ref: [email or web address]. Ordering Provider: ROSALINDA COLLINS Report Released Date/Time: Aug 03, 2023 07:56 AM Reporting Lab: [facility] [address] [facility] [address] Performing Lab: [facility] [address] [place] [phone] [facility] CBC (FV) LYMPHOCYTES /100 LEUKOCYTES IN BLOOD BY AUTOMATED COUNT 22.7 02/22 Specimen Type: BLOOD Comment: Values obtained from A1C measurements can vary. For typical A1C assays, a reported value of 7.0 could actually be between 6.72 and 7.28 if measured by a reference method. A reported value of 9.0 could actually be between 8.73 and 9.27. Ref: [email or web address]. Ordering Provider: ROSALINDA COLLINS Report Released Date/Time: Aug 03, 2023 07:56 AM Reporting Lab: [facility] [address] [facility] [address] Performing Lab: [facility] [address] [place] [phone] [facility] CBC (FV) LYMPHOCYTES [#/VOLUME] IN BLOOD BY AUTOMATED COUNT 1.5 10*3/uL 1.0 - 4.8 02/22 Specimen Type: BLOOD Comment: Values obtained from A1C measurements can vary. For typical A1C assays, a reported value of 7.0 could actually be between 6.72 and 7.28 if measured by a reference method. A reported value of 9.0 could actually be between 8.73 and 9.27. Ref: [email or web address]. Ordering Provider: ROSALINDA COLLINS Report Released Date/Time: Aug 03, 2023 07:56 AM Reporting Lab: [facility] [address] [place] [phone] Performing Lab: [facility] [address] [phone] [facility] CBC (FV) MONOCYTES/1 00 LEUKOCYTES IN BLOOD BY AUTOMATED COUNT 11.0 02/22 Specimen Type: BLOOD Comment: Values obtained from A1C measurements can vary. For typical A1C assays, a reported value of 7.0 could actually be between 6.72 and 7.28 if measured by a reference method. A reported value of 9.0 could actually be between 8.73 and 9.27. Ref: [email or web address]. Ordering Provider: ROSALINDA COLLINS Report Released Date/Time: Aug 03, 2023 07:56 AM Reporting Lab: [address] [phone] Performing Lab: [place] [phone] [facility] CBC (FV) MONOCYTES [#/VOLUME] IN BLOOD BY AUTOMATED COUNT 0.7 10*3/uL 0.1 - 1.0 02/22 Specimen Type: BLOOD Comment: Values obtained from A1C measurements can vary. For typical A1C assays, a reported value of 7.0 could actually be between 6.72 and 7.28 if measured by a reference method. A reported value of 9.0 could actually be between 8.73 and 9.27. Ref: [email or web address]. Ordering Provider: ROSALINDA COLLINS Report Released Date/Time: Aug 03, 2023 07:56 AM Reporting Lab: [address] [phone] Performing Lab: [address] [phone] [facility] CBC (FV) EOSINOPHILS /100 LEUKOCYTES IN BLOOD BY AUTOMATED COUNT 1.2 02/22 Specimen Type: BLOOD Comment: Values obtained from A1C measurements can vary. For typical A1C assays, a reported value of 7.0 could actually be between 6.72 and 7.28 if measured by a reference method. A reported value of 9.0 could actually be between 8.73 and 9.27. Ref: [email or web address]. Ordering Provider: ROSALINDA COLLINS Report Released Date/Time: Aug 03, 2023 07:56 AM Reporting Lab: [facility] [address] [place] [phone] Performing Lab: [facility] [address] [place] [phone] [facility] CBC (FV) EOSINOPHILS [#/VOLUME] IN BLOOD BY AUTOMATED COUNT 0.1 10*3/uL 0.0 - 0.4 02/22 Specimen Type: BLOOD Comment: Values obtained from A1C measurements can vary. For typical A1C assays, a reported value of 7.0 could actually be between 6.72 and 7.28 if measured by a reference method. A reported value of 9.0 could actually be between 8.73 and 9.27. Ref: [email or web address]. Ordering Provider: ROSALINDA COLLINS Report Released Date/Time: Aug 03, 2023 07:56 AM Reporting Lab: [facility] [address] [place] [phone] Performing Lab: [facility] [address] [place] [phone] [facility] CBC (FV) BASOPHILS/1 00 LEUKOCYTES IN BLOOD BY AUTOMATED COUNT 1.7 02/22 Specimen Type: BLOOD Comment: Values obtained from A1C measurements can vary. For typical A1C assays, a reported value of 7.0 could actually be between 6.72 and 7.28 if measured by a reference method. A reported value of 9.0 could actually be between 8.73 and 9.27. Ref: [email or web address]. Ordering Provider: ROSALINDA COLLINS Report Released Date/Time: Aug 03, 2023 07:56 AM Reporting Lab: [facility] [address] [place] [phone] Performing Lab: [facility] [address] [place] [phone] [facility] CBC (FV) BASOPHILS [#/VOLUME] IN BLOOD BY AUTOMATED COUNT 0.1 10*3/uL 0.0 - 0.2 02/22 Specimen Type: BLOOD Comment: Values obtained from A1C measurements can vary. For typical A1C assays, a reported value of 7.0 could actually be between 6.72 and 7.28 if measured by a reference method. A reported value of 9.0 could actually be between 8.73 and 9.27. Ref: [email or web address]. Ordering Provider: ROSALINDA COLLINS Report Released Date/Time: Aug 03, 2023 07:56 AM Reporting Lab: [facility] [address] [facility] [phone] Performing Lab: [facility] [address] [facility] [phone] [facility] URINALYSI S COLOR OF URINE YELLOW 02/22 Specimen Type: URINE No comment entered. Ordering Provider: ROSALINDA COLLINS Report Released Date/Time: Aug 03, 2023 07:56 AM Reporting Lab: [facility] [address] [facility] [phone] Performing Lab: [facility] [address] [facility] [phone] [facility] URINALYSI S SPECIFIC GRAVITY OF URINE 1.027 1.005 - 1.035 02/22 Specimen Type: URINE No comment entered. Ordering Provider: ROSALINDA COLLINS Report Released Date/Time: Aug 03, 2023 07:56 AM Reporting Lab: [facility] [address] [facility] [phone] Performing Lab: [facility] [address] [facility] [address] [facility] URINALYSI S PH OF URINE BY TEST STRIP 6.5 [pH] 5 - 8 02/22 Specimen Type: URINE No comment entered. Ordering Provider: ROSALINDA COLLINS Report Released Date/Time: Aug 03, 2023 07:56 AM Reporting Lab: [facility] [address] [facility] [address] Performing Lab: [facility] [address] [facility] [address] [facility] URINALYSI S NITRITE [PRESENCE] IN URINE BY TEST STRIP NEG . 02/22 Specimen Type: URINE No comment entered. Ordering Provider: ROSALINDA COLLINS Report Released Date/Time: Aug 03, 2023 07:56 AM Reporting Lab: [facility] [address] [facility] [phone] Performing Lab: [facility] [address] [facility] [address] [facility] URINALYSI S UROBILINOGE N [MASS/VOLUM E] IN URINE BY TEST STRIP <2.0mg/ dL 02/22 Specimen Type: URINE No comment entered. Ordering Provider: ROSALINDA COLLINS Report Released Date/Time: Aug 03, 2023 07:56 AM Reporting Lab: [facility] [address] [facility] [phone] Performing Lab: [facility] [address] [place] [phone] [facility] URINALYSI S APPEARANCE OF URINE - 02/22 Specimen Type: URINE No comment entered. Ordering Provider: ROSALINDA COLLINS Report Released Date/Time: Aug 03, 2023 07:56 AM Reporting Lab: [facility] [address] [place] [phone] Performing Lab: [facility] [address] [place] [phone] [facility] URINALYSI S GLUCOSE [MASS/VOLUM E] IN URINE BY TEST STRIP NORMAL 02/22 Specimen Type: URINE No comment entered. Ordering Provider: ROSALINDA COLLINS Report Released Date/Time: Aug 03, 2023 07:56 AM Reporting Lab: [facility] [address] [place] [phone] Performing Lab: [facility] [address] [place] [phone] [facility] URINALYSI S PROTEIN [MASS/VOLUM E] IN URINE BY TEST STRIP +- 02/22 Specimen Type: URINE No comment entered. Ordering Provider: ROSALINDA COLLINS Report Released Date/Time: Aug 03, 2023 07:56 AM Reporting Lab: [facility] [address] [facility] [address] Performing Lab: [facility] [address] [place] [phone] [facility] URINALYSI S BILIRUBIN.T OTAL [PRESENCE] IN URINE BY TEST STRIP - 02/22 Specimen Type: URINE No comment entered. Ordering Provider: ROSALINDA COLLINS Report Released Date/Time: Aug 03, 2023 07:56 AM Reporting Lab: [facility] [address] [place] [phone] Performing Lab: [facility] [address] [facility] [phone] [facility] URINALYSI S HEMOGLOBIN [PRESENCE] IN URINE BY TEST STRIP - 02/22 Specimen Type: URINE No comment entered. Ordering Provider: ROSALINDA COLLINS Report Released Date/Time: Aug 03, 2023 07:56 AM Reporting Lab: [facility] [address] [place] [phone] Performing Lab: [facility] [address] [place] [phone] [facility] URINALYSI S KETONES [MASS/VOLUM E] IN URINE BY TEST STRIP - 02/22 Specimen Type: URINE No comment entered. Ordering Provider: ROSALINDA COLLINS Report Released Date/Time: Aug 03, 2023 07:56 AM Reporting Lab: [facility] [address] [place] [phone] Performing Lab: [facility] [address] [place] [phone] [facility] URINALYSI S LEUKOCYTE ESTERASE [PRESENCE] IN URINE BY TEST STRIP NEG. - 74 02/22 Specimen Type: URINE No comment entered. Ordering Provider: ROSALINDA COLLINS Report Released Date/Time: Aug 03, 2023 07:56 AM Reporting Lab: [facility] [address] [address] Performing Lab: [facility] [address] [address] [facility] PSA (FV) PROSTATE SPECIFIC AG [MASS/VOLUM E] IN SERUM OR PLASMA 0.79 ng/mL 0.0 - 4.0 11/25 Specimen Type: SERUM No comment entered. Ordering Provider: ROSALINDA COLLINS Report Released Date/Time: Nov 06, 2021 08:20 AM Reporting Lab: [facility] [address] [facility] [address] Performing Lab: [facility] [address] [facility] [address] [facility] GLYCO HGB A1C HEMOGLOBIN A1C/HEMOGLO BIN.TOTAL IN BLOOD BY HPLC 5.6 4.2 - 5.8 11/25 Specimen Type: BLOOD Comment: Values obtained from A1C measurements can vary. For typical A1C assays, a reported value of 7.0 could actually be between 6.72 and 7.28 if measured by a reference method. A reported value of 9.0 could actually be between 8.73 and 9.27. Ref: [email or web address]. Ordering Provider: ROSALINDA COLLINS Report Released Date/Time: Nov 06, 2021 08:20 AM Reporting Lab: [facility] [address] [facility] [address] Performing Lab: [facility] [address] [facility] [address] [facility] Vital Signs Combined list of inpatient and outpatient Vital Signs from Department of Defense and Veterans Affairs, ranging from 12 months to all on record, depending upon the facility. Vital Sign Value Date Comments Source SYSTOLIC BLOOD PRESSURE 142 08/16/2024 08:29:16 [facility] DIASTOLIC BLOOD PRESSURE 82 08/16/2024 08:29:16 [facility] PULSE OXIMETRY 96 08/16/2024 08:29:16 [facility] WEIGHT 230 08/16/2024 08:29:16 [facility] BMI 35 kg/m2 08/16/2024 08:29:16 [facility] PAIN 0 08/16/2024 08:29:16 [facility] HEIGHT 68 08/16/2024 08:29:16 [facility] TEMPERATURE 97.7 08/16/2024 08:29:16 [facility] PULSE 78 08/16/2024 08:29:16 [facility] RESPIRATION 18 08/16/2024 08:29:16 [facility] SYSTOLIC BLOOD PRESSURE 155 02/23/2024 10:29:46 [facility] DIASTOLIC BLOOD PRESSURE 92 02/23/2024 10:29:46 [facility] PULSE OXIMETRY 95 02/23/2024 10:29:46 [facility] WEIGHT 230 02/23/2024 10:29:46 [facility] BMI 35 kg/m2 02/23/2024 10:29:46 [facility] PAIN 8 02/23/2024 10:29:46 [facility] TEMPERATURE 97.6 02/23/2024 10:29:46 [facility] PULSE 71 02/23/2024 10:29:46 [facility] RESPIRATION 20 02/23/2024 10:29:46 [facility] Encounters Combined list of: 1) Encounters from Department of Veterans Affairs facilities going backup to the last 18 months, not all [place] inpatient encounters are included; 2) Encounters from the Department of [facility] facilities going backup to 280 months. Location Location Details Encounter Type Encounter Number Reason For Visit Attending Provider ADM Date DC Date Status Disposition Source [facility] CLEAN/INSP ECT DONALD COMP DENT [id number] Diagnos is: ICD-10- CM K03.6 Deposit s [accret ions] on teeth QING LUCAS 06/10 [facility] COMPREHENS VE ORAL EVALUATION [id number] Diagnos is: ICD-10- CM K05.322 Chronic periodo ntitis, general ized, moderat e CHARLES CHURCHILL LLY R 06/10 [facility] En[facility] [id number] Carlos PALUMBO 07/29 [facility] Outpatient Encounter [id number] LIBIA BELL 07/29 [facility] [place] SOLIS [facility] Outpatient Encounter [id number] 07/29 [facility] [place] [facility] Outpatient Encounter [id number] 08/03 [facility] O[facility] OFFICE O/P EST HI 40 MIN [id number] Diagnos is: ICD-10- CM M65.30 Trigger finger, unspeci fied finger ROLO COLLINS 08/03 [facility] [place] [facility] Outpatient Encounter [id number] 08/05 [facility] Outpatient Encounter [id number] 08/18 [facility] REPAIR DENTUR BASE CMPL DONALD [id number] Diagnos is: ICD-10- CM K08.199 Complet e loss of teeth due to oth cause, unspeci fied class CHARLES CHURCHILL LLY R 08/18 [facility] [place] [facility] Outpatient Encounter [id number] 09/06 [facility] OFF/OP CNSLTJ NEW/EST LOW 30 [id number] Diagnos is: ICD-10- CM M65.311 Trigger thumb, right thumb KINSEY ROCHA 09/06 [facility] O[facility] OFFICE O/P EST HI 40 MIN [id number] Diagnos is: ICD-10- CM H40.023 Open angle with borderl ine finding s, high risk, bilater GUANAKITO Conner 10/13 [facility] O[facility] OFFICE O/P EST LOW 20 MIN [id number] Diagnos is: ICD-10- CM H40.023 Open angle with borderl ine finding s, high risk, bilater al ASHLEE DORSEY 10/13 [facility] [place] [facility] Outpatient Encounter [id number] 10/27 [facility] O[facility] OFFICE O/P EST HI 40 MIN [id number] Diagnos is: ICD-10- CM H02.831 Dermato chalasi s of right upper eyelid GUANAKITO RODAS 11/14 [facility] TOPICAL FLUORIDE [id number] Diagnos is: ICD-10- CM K03.6 Deposit s [accret ions] on teeth QING LUCAS 11/14 [facility] [place] [facility] Outpatient Encounter [id number] 11/14 [facility] OPC OFFICE O/P EST HI 40 MIN [id number] Diagnos is: ICD-10- CM E78.5 Hyperli pidemia , unspeci fied ROLO COLLINS [facility] 02/22 [facility] Outpatient Encounter [id number] COLLINS,AN [facility] 02/22 [facility] [place] [facility] Outpatient Encounter [id number] 03/28 [facility] [place] [facility] Outpatient Encounter [id number] KOLE PENA 03/29 [facility] KENRICK [facility] [place] [facility] Outpatient Encounter [id number] HARRISON BARCLAY 04/18 [facility] KEN[facility] [place] [facility] Outpatient Encounter [id number] 04/25 [facility] KENRICK [facility] [place] [facility] Outpatient Encounter [id number] 05/03 [facility] [place] Outpatient Encounter [id number] 05/03 [facility] OPC CLEAN/INSP ECT DONALD COMP DENT [id number] Diagnos is: ICD-10- CM K03.6 Deposit s [accret ions] on teeth QING LUCAS 05/29 [facility] OPC REPLACE SEMI PREC ATTACH [id number] Diagnos is: ICD-10- CM K05.322 Chronic periodo ntitis, general ized, moderat e ZHAO,HO LLY R 05/29 [facility] [place] [facility] Outpatient Encounter [id number] 05/29 [facility] CHOUDHARY [facility] [place] [facility] Outpatient Encounter [id number] 06/27 [facility]OUDHARY [facility] [place] [facility] HC PRO PHONE CALL 21-30 MIN [id number] Diagnos is: ICD-10- CM 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 YASMINE [place] 06/28 JAJA [facility]OUDHARY [facility] [place] [facility] Outpatient Encounter [id number] 07/05 BEATRISYEESTRELLA CHOUDHARY [facility] [place] [facility] Outpatient Encounter [id number] 07/06 YEESTRELLA CHOUDHARY [facility] [place] [facility] Outpatient Encounter [id number] 07/19 YEESTRELLA CHOUDHARY [facility] [place] [facility] Outpatient Encounter [id number] 07/24 YEESTRELLA CHOUDHARY [facility] [place] [facility] PH1 ASSMT&MGMT NQHP 21-30 [id number] Diagnos is: ICD-10- CM 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 ELIUD Eduardo 08/03 [facility] [facility] Outpatient Encounter [id number] 08/16 MADHURI CHOUDHARY [facility] [facility] Outpatient Encounter [id number] 08/16 JAJA CHOUDHARY [facility] OPC OFFICE O/P EST HI 40 MIN [id number] Diagnos is: ICD-10- CM M25.561 Pain in right knee ROLO OCLLINS 08/16 [facility] [facility] Outpatient Encounter [id number] 08/25 FAYENIKKIE KENRICK [facility] Outpatient Encounter [id number] 08/28 [facility] Outpatient Encounter [id number] 08/30 [facility] [facility] Outpatient Encounter [id number] 09/08 [facility] KENR[facility] [facility] Outpatient Encounter [id number] 09/25 [facility] KENR[facility] [place] [facility] [facility] Outpatient Encounter [id number] 09/25 YETTE KENRICK [facility] Social History Combined list of available smoking, tobacco, and other social history from Department of Defense and Veterans Affairs facilities. Social History Type Response Date Comment Sourc e Tobacco smoking status NHIS VA-TOBACCO FORMER USER 02/23/2024 [facility] History of tobacco use VT-TOBACCO QUIT 1 5 YRS OR MORE 02/23/2024 [facility] History of tobacco use VT-TOBACCO NEVER USED 11/25/2022 [facility] History of tobacco use VT-TOBACCO NEVER USED 08/11/2021 [facility] O[facility] History of tobacco use VT-TOBACCO QUIT 1 5 YRS OR MORE 02/29/2020 [facility] History of tobacco use VT-TOBACCO QUIT 1 5 YRS OR MORE 10/31/2018 [facility] History of tobacco use V16 TOBACCO USE SCREEN 03/24/2018 [facility] History of tobacco use V16 TOBACCO USE SCREEN 03/23/2017 [facility] History of tobacco use V16 TOBACCO USE SCREEN 03/20/2016 [facility] History of tobacco use V16 TOBACCO USE SCREEN 01/24/2015 [facility] History of tobacco use V16 TOBACCO USE SCREEN 11/23/2013 [facility] History of tobacco use V16 TOBACCO USE SCREEN 11/29/2012 [facility] History of tobacco use V16 TOBACCO USE SCREEN 11/09/2011 [facility] History of tobacco use V16 TOBACCO USE SCREEN 11/10/2010 [facility] History of tobacco use V16 TOBACCO USE SCREEN 11/15/2009 [facility] History of tobacco use V16 TOBACCO USE SCREEN 11/28/2008 [facility] History of tobacco use V16 TOBACCO USE SCREEN 07/11/2007 [facility] History of tobacco use V16 TOBACCO USE SCREEN 12/03/2006 [facility] History of tobacco use V16 TOBACCO USE SCREEN 05/27/2006 [facility] History of tobacco use 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 Additional future care activities may be listed in the Assessment and Plan section. Date/Time Care Activity Care Activity Detail Facili ty 2024 AMBULATORY - SURGERY AMBULATORY - SURGERY [facility] 11/15/2024 AMBULATORY - NONE AMBULATORY - NONE [facility] 01/25/2025 AMBULATORY - NONE AMBULATORY - NONE [facility] 01/25/2025 AMBULATORY - MEDICINE AMBULATORY - MEDICI NE [facility]
--- OUTSIDE RECORDS SUMMARY | 2024-09-25 15:30 | XMS_ITS ---
Author Name [facility] [place] [facility] [place] [facility] [place] Address [address], [place] [address] Care Team Providers Care Psychiatric Security Nurse Name Role Phone LORENA COLLINS Primary Care Provider Unavailabl e Selected Encounter This section includes the information on record at [place] for the Encounter. Date/Time Encounter Type Encounter Description Reason Pro vider Source Aug 28, 2024 10:44 AM Outpatient Encounter ADMIN PAT ACTIVTIES (MASNONCT) IHE Encounter Template Text not used by [place] Plan of Treatment: Future Appointments (+ 6 months) and Future Tests (+/- 45 days) The Plan of Treatment section includes future care activities for the patient from all [place] treatmentfacilities. This section includes future appointments and future orders which are active, pending or scheduled. Future Appointments This section includes appointments that were scheduled to occur 6 months from the date of the Encounter, up to a maximum of 20 appointments. The data comes from all [place] treatment facilities. Appointment Date/Time Appointment Type Appointme nt Facility Name Aug 30, 2024 11:15 AM AMBULATORY - NONE [facility] 2024 09:00 AM AMBULATORY - SURG[facility] Nov 15, 2024 10:00 AM AMBULATORY - NONE [facility] Jan 25, 2025 08:45 AM AMBULATORY - NONE [facility] Jan 25, 2025 10:00 AM [facility]BULATORY - MEDICINE [facility] Encounter Notes: All associated encounter notes This section contains the clinical notes associated to the Encounter. Date/Time Encounter Note(s) Provider Source Aug 28, 2024 10:44 AM ADMINISTRATIVE NOT E: LOCAL TITLE: CCC: SCHEDULING ADMINISTRATION STANDARD TITLE: ADMINISTRATIVE NOTE DATE OF NOTE: AUG 28, 2024@10:44:57 ENTRY DATE: AUG 28, 2024@10:44:58 AUTHOR: GIOVANNA SANCHEZ EXP COSIGNER: URGENCY: STATUS: COMPLETED Patient Demographics Patient Name: NED LARA Patient Primary Phone: [phone] Patient Primary Address: [address] [place] [address] Patient : 1960 Patient Age: 63 Call Back Number: Caller/Recipient Relation to Patient: Self Caller Name: NED LARA Administrative Administrative Note Reason: Other Administrative Note Comments: contact clinic regarding his request for continuation of care for PT. Informed that his request is pending for review from [facility]. Stated he'll call again for another update this week. Concerned about missing appt if [place] won't approve. No further assistance needed at this time. IMPORTANT: This note was created by [facility] Clinical Contact Center staff. Please do not alert the staff member by adding them as a signer for future communications. Alerts are not monitored by this user. /kaylin/ GIOVANNA SANCHEZ [facility] Signed: 08/28/2024 10:44 GIOVANNA SANCHEZ [facility]
[2024-09-25] MEDS: enoxaparin 40 mg/0.4 mL Syringe SUBCUT (15:31)
[2024-09-25] MEDS: pantoprazole 40 mg SDV IVP (15:31)
--- OUTSIDE RECORDS SUMMARY | 2024-09-25 15:31 | XMS_ITS | Encounter Summary ---
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 Date/Time Encounter Type Encounter Description Reason Pro vider Source Sep 25, 2024 08:22 AM Outpatient Encounter ADMIN PAT ACTIVTIES (MASNONCT) IHE Encounter Template Text not used by [place] Plan of Treatment: Future Appointments (+ 6 months) and Future Tests (+/- 45 days) The Plan of Treatment section includes future care activities for the patient from all [place] treatmentfacilities. This section includes future appointments and future orders which are active, pending or scheduled. Future Appointments This section includes appointments that were scheduled to occur 6 months from the date of the Encounter, up to a maximum of 20 appointments. The data comes from all [place] treatment facilities. Appointment Date/Time Appointment Type Appointme nt Facility Name 2024 09:00 AM AMBULATORY - SURGERY [facility] Nov 15, 2024 10:00 AM AMBULATORY - NONE [facility] Jan 25, 2025 08:45 AM AMBULATORY - NONE [facility] Jan 25, 2025 10:00 AM AMBULATORY - MEDICINE [facility] Encounter Notes: All associated encounter notes This section contains the clinical notes associated to the Encounter. Date/Time Encounter Note(s) Provider Source Sep 25, 2024 08:22 AM ADMINISTRATIVE NOT E: LOCAL TITLE: CCC: SCHEDULING ADMINISTRATION STANDARD TITLE: ADMINISTRATIVE NOTE DATE OF NOTE: SEP 25, 2024@08:22:22 ENTRY DATE: SEP 25, 2024@08:22:22 AUTHOR: WEI DOWNING EXP COSIGNER: URGENCY: STATUS: COMPLETED CCC: SCHEDULING ADMINISTRATION Has ADDENDA Patient Demographics Patient Name: NED LARA Patient Primary Phone: [phone] Patient Primary Address: [address] [place] [address] Patient : 1960 Patient Age: 63 Call Back Number: [phone] Caller/Recipient Relation to Patient: Self Caller Name: NED LARA Administrative Administrative Note Reason: Other Administrative Note Comments: calling today asking for an appointment with his team. He states that he has trigger finger in his RT hand (Specifically his thumb). Please call to discuss. IMPORTANT: This note was created by [facility] Clinical Contact Center staff. Please do not alert the staff member by adding them as a signer for future communications. Alerts are not monitored by this user. /kaylin/ WEI DOWNING [facility] Signed: 09/25/2024 08:22 Receipt Acknowledged By: 09/25/2024 08:28 /kaylin/ DWAYNE ZHENG [facility] 09/25/2024 08:37 /kaylin/ DUSTIN PENA, [facility] 09/25/2024 ADDENDUM STATUS: COMPLETED will defer to team RN /kaylin/ DWAYNE ZHENG [facility] Signed: 09/25/2024 08:28 WEI DOWNING [facility]
--- OUTSIDE RECORDS SUMMARY | 2024-09-25 15:31 | XMS_ITS | Patient Health Record ---
Author Organization [facility] Address [address] [place] [address] Care Team Providers Care Lay Out Technician Name Role Phone None, None Primary Care Provider Lorena Hauser Unavailable [phone] Allergies Allergen (clinical drug ingredient) Drug/Non Drug Allergy documented on EMR Reaction Allergy Type Onset Date Status Mint Chocolate Chip Flavor Unknown Drug Allergy Active Peppermint Flavor Unknown Drug Allergy Active Bee Sting Unknown Allergy Active Reason For Referral No Information Social History Tobacco Use: Social History Observation Description Date Details (start date - stop date) Former Smoker NA - NA xTobacco Use/Smoking Question Answer Notes Are you a former smoker How long has it been since you last smoked? > 10 years Alcohol Screen (Audit-C) Question Answer Notes Did you have a drink containing alcohol in the p ast year? No Points 0 Interpretation Negative PHQ-9 Question Answer Notes Little interest or pleasure in doing things Not at all Feeling down, depressed, or hopeless Not at all Trouble falling or staying asleep, or sleeping t oo much Not at all Feeling tired or having little energy Several da ys Poor appetite or overeating Not at all Feeling bad about yourself, or that you are a failure, or have let yourself or your family down Not at all Trouble concentrating on thi ngs, such as reading the newspaper or watching television Not at all Moving or speaking so slowly that other people could have noticed. Or the opposite ? being so fidgety or restless that you have been moving around a lot more than usual Not at all Thoughts that you would be b chiqui off , or of hurting yourself in some way Not at all Total Score 1 Interpretation Minimal Depression Problems Problem Type SNOMED Code ICD Code Onset Dates Problem Status W/U Status Risk Notes Problem [id number] Obesity (BMI 30-39.9) (E66.9) Active confirmed Problem 8916809661717389 Nontraumatic complete tear of left rotator cuff (M75.122) Active confirmed Plan Of Treatment Pending Test Test Name Order Date Basic Metabolic Panel (BMP) 92894 2020 CBC Reflex Man Diff 93328, 00866 021 Electrocardiogram 12 Lead Tracing-[id number] 03/14/2021 COVID 19 PCR--[id number] 03/14/2021 Insurance Providers Payer Name Payer Address Payer Phone Subscriber Number Group Number Insured Name Patient Relationship to Insured Coverage Start Date Coverage End Date [employer] [address] [place] [phone] [id number] Jitendra Blum Self - patient is the insured Medical (General) History Medical History History ICD Code Back Trouble Depression F32.9 Surgical History Surgery Date(Month/Year) left shoulder MEGHAN, DCR, labrum debridem ent 04/14/21 knee 09/2020
--- OUTSIDE RECORDS SUMMARY | 2024-09-25 15:31 | XMS_ITS | Encounter Summary ---
Author Name [facility] [place] Organization [facility] [place] [facility] [place] Address [address] [place] [id number] Care Team Providers Care Technician Test Systems Name Role Phone LORENA COLLINS Primary Care Provider Unavailabl e Selected Encounter This section includes the information on record at [place] for the Encounter. Date/Time Encounter Type Encounter Description Reason Provider Source Feb 23, 2024 01:00 PM Outpatient Encounter PRIMARY CARE/MEDICINE LORENA COLLINS [facility] Encounter Template Text not used by [place] Plan of Treatment: Future Appointments (+ 6 months) and Future Tests (+/- 45 days) The Plan of Treatment section includes future care activities for the patient from all [place] treatmentfacilities. This section includes future appointments and future orders which are active, pending or scheduled. Future Appointments This section includes appointments that were scheduled to occur 6 months from the date of the Encounter, up to a maximum of 20 appointments. The data comes from all [place] treatment facilities. Appointment Date/Time Appointment Type Appointme nt Facility Name Apr 12, 2024 07:30 AM AMBULATORY - NONE [facility] May 03, 2024 09:30 AM AMBULATORY - NONE [facility] May 29, 2024 09:30 AM AMBULATORY - NONE [facility] May 29, 2024 09:45 AM AMBULATORY - NONE [facility] Jul 05, 2024 08:00 AM AMBULATORY - NONE [facility] Aug 16, 2024 08:30 AM AMBULATORY - MEDICINE [facility] Lab Results: +/- 30 days of the encounter This section includes the Chemistry and Hematology Lab Results on record with [place] for the patient. Radiology Reports and Pathology Reports are provided separately, in subsequent sections. Lab Results This section contains the Chemistry/Hematology Results that were resulted 30 days before or 30 daysafter the date of the Encounter. Date/Time Source Result Type Result - Unit Interpretation Reference Range Comment Feb 23, 2024 08:15 AM [facility] GLYCO HGB A1C Specimen Type: BLOOD Comment: [...] Aug 03, 2023 07:56 AM Reporting Lab: [address] [address] Performing Lab: [address] [address] Glyco Hgb A1C 5.5 4.2-5.8 Feb 23, 2024 08:15 AM [facility] URINE ALBUMIN, RANDOM URINE Specimen Type: URINE No comment entered. Ordering Provider: LORENA COLLINS Report Released Date/Time: Aug 03, 2023 07:56 AM Reporting Lab: [address] [address] Performing Lab: [address] [address] URINE ALBUMIN (FV) 0.7 mg/dL <1.8 ALB:CREAT RATIO (FV) 3 <29 CREATININE (FV) 234 mg/dL Feb 23, 2024 08:15 AM [facility] TSH (FV) Specimen Type: SERUM No comment entered. Ordering Provider: LORENA COLLINS Report Released Date/Time: Aug 03, 2023 07:56 AM Reporting Lab: [facility] [address] [facility] [facility] [facility] [address] Performing Lab: [facility] [address] [facility] [address] TSH (FV) 3.04 u[IU]/mL 0.45-5.33 Feb 23, 2024 08:15 AM [facility] LIPID PROFILE (FV) Specimen Type: PLASMA No comment entered. Ordering Provider: LORENA COLLINS Report Released Date/Time: Aug 03, 2023 07:56 AM Reporting Lab: [address] [address] Performing Lab: [address] [address] CHOLESTEROL, TOTAL (FV) 221 mg/dL H 118-200 TRIGLYCERIDE (FV) 153 mg/dL <200 LDL CHOLESTEROL (CALCULATED) 149 mg/dL HDL CHOLESTEROL (FV) 41 mg/dL >40 Feb 23, 2024 08:15 AM [facility] VITAMIN B12 Specimen Type: SERUM No comment entered. Ordering Provider: LORENA COLLINS Report Released Date/Time: Aug 03, 2023 07:56 AM Reporting Lab: [facility] [address] [facility] [address] Performing Lab: [facility] [address] [facility] [address] VITAMIN B12 (FV) 230 pg/mL 180-914 Feb 23, 2024 08:15 AM [facility] CBC (FV) Specimen Type: BLOOD Comment: Values [...] Aug 03, 2023 07:56 AM Reporting Lab: [address] [address] Performing Lab: [address] [address] MPV (FV) 6.4 fL L 7.4-10.4 RDW [...] 10*3/uL 0.0-0.2 Feb 23, 2024 08:15 AM [employer] [facility] URINALYSIS Specimen Type: URINE No comment entered. Ordering Provider: LORENA COLLINS Report Released Date/Time: Aug 03, 2023 07:56 AM Reporting Lab: [address] [address] Performing Lab: [address] [address] UA COLOR YELLOW COLORLESS- Y ELLOW UA SPEC GRAV 1.027 1.005-1.035 UA PH 6.5 [pH] 5-8 UA NITRITE NEG Neg.-Neg UA UROBILINOGEN <2.0 mg/dL UA APPEARANCE - UA GLUCOSE NORMAL NEG-TRACE UA PROTEIN +- NEG UA BILI - NEG UA BLOOD - NEG-TRACE UA KETONES - NEG-TRACE UA LEUK EST NEG. NEG-74 Feb 23, 2024 08:15 AM [employer] [facility] RENAL+LIVER PROFILE Specimen Type: PLASMA No comment entered. Ordering Provider: LORENA COLLINS Report Released Date/Time: Aug 03, 2023 07:56 AM Reporting Lab: [facility] [address] [place] [address] Performing Lab: [facility] [address] [facility] [address] GLUCOSE (FV) 107 mg/dL 70-110 ALBUMIN (FV) [...] Source Feb 23, 2024 10:46 AM 8 [facility] Feb 23, 2024 10:29 AM 97.6 71 155/92 20 95 8 230 35 [facility] Social History: Smoking Status (Most current) and Tobacco Use (All prior to encounter date) This section includes the most current, and the historical, smoking and tobacco- related health factors from the [place] facility where the Encounter took place. Current Smoking Status This section includes the most current smoking, or tobacco-related health factor, from the [place] facility where the Encounter took place. Date/Time Current Smoking Status Comment Facil ity Feb 23, 2024 01:00 PM VA-TOBACCO FORMER USER [facility] Tobacco Use History This section includes a history of the smoking, or tobacco-related health factors, that were collected on or before the date of the Encounter. The data comes from the [place] facility where the Encounter took place. Date/Time Smoking Status/Tobacco Use Comment F acility Feb 23, 2024 01:00 PM PR-TOBACCO QUIT 15 YRS OR MORE [facility] Nov 25, 2022 07:30 AM VA-TOBACCO NEVER USED [facility] Aug 11, 2021 01:00 PM VA-TOBACCO NEVER USED [facility] Feb 29, 2020 11:02 AM VA-TOBACCO FORMER USER [facility] Feb 29, 2020 11:02 AM VA-TOBACCO QUIT 15 YRS OR MORE [facility] Oct 31, 2018 04:26 PM V16 TOBACCO USE SCREEN [facility] Oct 31, 2018 04:26 PM VA-TOBACCO FORMER USER [facility] Oct 31, 2018 04:26 PM VA-TOBACCO QUIT 15 YRS OR MORE [facility] Mar 24, 2018 07:49 AM V16 LIFETIME NON-TOBACCO USER [facility] Mar 24, 2018 07:49 AM V16 TOBACCO USE SCREEN [facility] Mar 23, 2017 07:40 AM V16 LIFETIME NON-TOBACCO USER [facility] Mar 23, 2017 07:40 AM V16 TOBACCO USE SCREEN [facility] Mar 20, 2016 08:30 AM V16 LIFETIME NON-TOBACCO USER [facility] Mar 20, 2016 08:30 AM V16 TOBACCO USE SCREEN [facility] Jan 24, 2015 09:08 AM V16 LIFETIME NON-TOBACCO USER [facility] Jan 24, 2015 09:08 AM V16 TOBACCO USE SCREEN [facility] Nov 23, 2013 08:35 AM V16 TOBACCO CESSATION >7 YEARS [facility] Nov 23, 2013 08:35 AM V16 TOBACCO USE SCREEN [facility] Nov 29, 2012 09:12 AM V16 LIFETIME NON-TOBACCO USER [facility] Nov 29, 2012 09:12 AM V16 TOBACCO USE SCREEN [facility] Nov 09, 2011 09:39 AM V16 TOBACCO CESSATION >7 YEARS [facility] Nov 09, 2011 09:39 AM V16 TOBACCO USE SCREEN [facility] Nov 10, 2010 09:16 AM V16 TOBACCO CESSATION >7 YEARS [facility] Nov 10, 2010 09:16 AM V16 TOBACCO USE SCREEN [facility] Nov 15, 2009 10:29 AM V16 TOBACCO CESSATION >7 YEARS [facility] Nov 15, 2009 10:29 AM V16 TOBACCO USE SCREEN [facility] Nov 28, 2008 08:56 AM V16 TOBACCO CESSATION >7 YEARS [facility] Nov 28, 2008 08:56 AM V16 TOBACCO USE SCREEN [facility] Jul 11, 2007 08:53 AM V16 TOBACCO CESSATION >7 YEARS [facility] Jul 11, 2007 08:53 AM V16 TOBACCO USE SCREEN [facility] December 03, 2006 08:57 AM V16 TOBACCO CESSATION >7 YEARS [facility] December 03, 2006 08:57 AM V16 TOBACCO USE SCREEN [facility] May 27, 2006 10:53 AM V16 TOBACCO CESSATION > 12 MONTH S [facility] May 27, 2006 10:53 AM V16 TOBACCO USE SCREEN [facility] Jan 12, 2003 08:53 AM LIFETIME NON-TOBACCO USER [facility] Jul 07, 2001 10:12 AM TOBACCO CESSATION: >10 YEARS [facility] Jan 05, 2001 12:50 PM TOBACCO CESSATION: >10 YEARS [facility] Encounter Notes: All associated encounter notes This section contains the clinical notes associated to the Encounter. Date/Time Encounter Note(s) Provider Source Feb 23, 2024 10:31 AM PRIMARY CARE NURSING NOTE: LOCAL TITLE: PRIMARY CARE/NURSE STANDARD TITLE: PRIMARY CARE NURSING NOTE DATE OF NOTE: FEB 23, 2024@10:31 ENTRY DATE: FEB 23, 2024@10:31:14 AUTHOR: KEILA ZEE EXP COSIGNER: URGENCY: STATUS: COMPLETED BP: 155/92 (02/23/2024 10:29) Pain: 8 (02/23/2024 [...] pain, rated 8/10; Had surgery years ago. How is your stress level today? Minimal Stress - No follow up needed. Example: Life is good, I have no stress. Depression: Chronic, no changes Suicidal: No Accompanied By: Alone On Arrival: Ambulatory Mobility changes in the past 3 months? Yes, Specify: r/t right knee pain Mental Status: Alert and oriented Do you have or use an assistive device? No Has patient had fall(s) in [...] DAILY NEEDED TO SOFTEN THE SKIN 3) NYSTATIN 555450 UNT/ML SUSP TAKE 10 ML BY MOUTH ACTIVE DIRECTED SOAK DENTURES IN LIQUID OVERNIGHT Active Non-VA Medications Status ========= 1) Non-VA LORATADINE 10MG TAB 10MG MOUTH ONCE DAILY ACTIVE NEEDED 2) Non-VA NON-VA DRUG ASSESSMENT DONE CAP/TAB MOUTH ACTIVE 3) Non-VA OFLOXACIN 0.3% OPH SOLN 1 DROP RIGHT EYE FOUR ACTIVE TIMES DAILY 6 Total Medications Toxic Exposure Screening: The /caregiver was asked if they believe the [place] experienced any toxic exposure(s), such as Airborne Hazards and Open Burn Pit, [place] War related exposures, Agent [place], Radiation, contaminated water at [place] or other such exposures, 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 No questions at this time /caregiver was informed of local points of contact. Contact information for local resources: Health/Medical Questions: Primary Care Team [phone] Benefits/Eligibilty/Enrollment questions: [phone] [id number] Registry/Claims Questions: [phone] [id number] Toxic Exposure Screening Follow-Up reminder is needed. Name of person notified: Dr Collins Suicide Screen: C-SSRS Screening [place] Suicide Severity Rating Scale (C-SSRS) screener 1. Over the past month, have you wished you were or wished you could go to sleep and not wake up? No 2. Over the past month, have you had any actual thoughts of killing yourself? No 3. Over the past month, have you been thinking about how you might do this? Response not required due to responses to other questions. 4. Over the past month, have you had these thoughts and had some intention of acting on them? Response not required due to responses to other questions. 5. Over the past month, have you started to work out or worked out the details of how to kill yourself? Response not required due to responses to other questions. 6. If yes, at any time in the past month did you intend to carry out this plan? Response not required due to responses to other questions. 7. In your lifetime, have you ever done anything, started to do anything, or prepared to do anything to end your life (for example, collected pills, obtained a gun, gave away valuables, went to the roof but didn't jump)? Yes 8. If YES, was this within the past 3 months? No Sexual Orientation: The patient thinks of their sexual orientation as: Straight or Heterosexual Alcohol Use Screen (AUDIT-C): Alcohol Screen: SCREEN FOR ALCOHOL (AUDIT-C) An alcohol screening test (AUDIT-C) was negative (score=0). 1. How often did you have a drink containing alcohol in the past year? Consider a drink to be a 12 ounce can or bottle of regular beer, 8 ounces of malt liquor, a 5 ounce glass of table wine, or a 1.5 ounce shot of liquor (like scotch, gin, or vodka). Never 2. How many drinks containing alcohol did you have on a typical day when you were drinking in the past year? Response not required due to responses to other questions. 3. How often did you have six or more drinks on one occasion in the past year? Response not required due to responses to other questions. Influenza Immunization: No influenza vaccination was received during the recent influenza season. COVID-19 Immunization: Refused Moderna Monovalent COVID-19 vaccine Immunization: COVID-19 (MODERNA), MRNA, LNP-S, PF, 50 MCG/0.5 ML (AGES 12+ YEARS) Refusal Reason: PATIENT DECISION Patient refuses all immunization(s) in the COVID-19 group Date Documented: 02/23/24 10:44 Herpes Zoster (Shingles) Vaccine: The patient declines to receive the recommended dose of zoster (shingles) vaccine. Immunization: ZOSTER RECOMBINANT Refusal Reason: PATIENT DECISION Patient refuses all immunization(s) in the ZOSTER group Date Documented: 02/23/24 10:45 Pain Evaluation (Nurse): PAIN EVALUATION: Clinic Location: Primary Care Patient reports having pain today. Patient reports Primary Care Provider is aware of pain. Pain Screening Tool utilized: DoD/VA Pain Scale This pain has been present for: Greater than 1 year Pain description: Comment: right knee Patient wants pain addressed. Education Topics for patient/family/significant other: Effectiveness of current pain medications. Reporting increased/unrelieved pain. Alternative pain management treatments. Instructed to contact Primary Care Provider for further evaluation. Level of Understanding: Good Tobacco Use Screening: The patient is a former tobacco user. The patient quit fifteen or more years ago. Depression Screening: Perform PHQ-2 A PHQ-2 screen was performed. The score was 4 which is a positive screen for depression. Over the past two weeks, how often have you been bothered by the following problems? 1. Little interest or pleasure in doing things Nearly every day 2. Feeling down, depressed, or hopeless Several days Licensed Independent Provider notified of positive screen and need for follow-up. Name of provider notified: Dr Collins Homelessness/Food Insecurity Screen: In the past 2 months, have you been living in stable housing that you own, rent, or stay in as part of a household? Yes - Living in stable housing. Are you worried or concerned that in the next 2 months you may NOT have stable housing that you own, rent, or stay in as part of a household? No - Not worried about housing near future The [place] reports the following: Within the past 12 months, you worried whether your food would run out before you got money to buy more. Never true Within the past 12 months, the food you bought just didn't last and you didn't have money to get more. Never true Weight Mgmt-BMI 30 or greater: Most recent weight: 230 lb [104.33 kg] (02/23/2024 10:29) Most recent height: 68 in [172.7 cm] (11/25/2022 07:25) Calculated BMI: BODY MASS INDEX FEB 23, 2024@10:29:46 35.0 AUG 03, 2023@07:28:31 NOV 25, 2022@07:25:03 BMI classification is OBESE -- Patient advised that his/her BMI/weight is considered overweight/obese. The health risks of obesity (heart disease, diabetes, sleep apnea, hypertension, arthritis certain cancers) were reviewed and discussed with the patient. The benefits of a weight management treatment program, such as MOVE! were discussed and offered to the patient. Patient WOULD benefit from participation in a weight management program. Patient is NOT interested in participating in any weight management program at this time. /es/ KEILA ZEE RN PRIMARY CARE REGISTERED NURSE-[place] Signed: 02/23/2024 10:50 KEILA ZEE [facility]
--- OUTSIDE RECORDS SUMMARY | 2024-09-25 15:31 | XMS_ITS | Clinical Summary ---
Author Organization [facility] Administrative Offices Address [address] [place] [id number] Care Team Providers Care Enterprise Engineer Name Role Phone Unavailable Primary Care Provider Unavailabl e Allergies Active Allergy Reactions Criticality Noted Date Comments Hymenoptera Allergenic Extract Unknown 07/22 Peppermint Flavor Unknown 07/22/2021 Medications carboxymethylce llulose sodium (REFRESH) 0.5 % solution INSTILL 1 DROP IN EACH EYE FOUR TIMES DAILY 11/07/2021 Active naproxen (NAPROSYN) 500 mg tablet 500 mg. 11/06/2021 Active Active Problems No known active problems Family History Medical History Relation Name Comments No Known Problems Daughter No Known Problems Father No Known Problems Mother No Known Problems Son Relation Name Status Comments Daughter Alive Father Mother Son Alive Social History Tobacco Use Types Packs/Day Years Used Date Smoking Tobacco: Never Smokeless Tobacco: Never Tobacco Cessation:Counseling Given: Not Answered Alcohol Use Standard Drinks/Week Comments Not Currently 0 (1 standard drink = 0.6 oz pur e alcohol) Sex and Gender Information Value Date Recorded Sex Assigned at Not on file Legal Sex Male 8:52 AM CDT Gender Identity Not on file Sexual Orientation Not on file Last Filed Vital Signs Vital Sign Reading Time Taken Comments Blood Pressure 132/76 06/19/2022 8:19 AM GRAIN CLEANER AND TRANSFER OPERATOR Pulse 65 06/19/2022 8:19 AM GRAIN CLEANER AND TRANSFER OPERATOR Temperature - - Respiratory Rate - - Oxygen Saturation 98% 06/19/2022 8:19 AM GRAIN CLEANER AND TRANSFER OPERATOR Inhaled Oxygen Concentration - - Weight 104.3 kg (230 lb) 06/19/2022 8:19 AM GRAIN CLEANER AND TRANSFER OPERATOR Height 172.7 cm (5' 8 ) 06/19/2022 8:19 AM GRAIN CLEANER AND TRANSFER OPERATOR Body Mass Index 34.97 06/19/2022 8:19 AM GRAIN CLEANER AND TRANSFER OPERATOR Plan of Treatment Health Maintenance Due Date Last Done Comments COLORECTAL SCREENING 2006 Colorectal Cancer Screening 2006 FIT-DNA Q 3 years 2006 FIT/FOBT Q 1 year 2006 Flex Sig/CT Colonography Q 5 years 2006 ZOSTER VACCINE (1 of 2) 10/14/2011 DTAP/TDAP/TD VACCINES (1 - Tdap) 11/24/2013 11/24/19 14, 01/11/2004 INFLUENZA VACCINE (#1) 2024 RSV VACCINE (60+ or ) (1 - 1-dose 75+ series) 2036 Insurance [place] [employer] [employer]
--- OUTSIDE RECORDS SUMMARY | 2024-09-25 15:31 | XMS_ITS | Encounter Summary ---
Author Name [facility] [place] Organization [facility] [place] Address [address], [place] [address] Care Team Providers Care Mercerizing Range Feeder Name Role Phone LORENA COLLINS Primary Care Provider Unavailabl e Selected Encounter This section includes the information on record at [place] for the Encounter. Date/Time Encounter Type Encounter Description Reason Pro vider Source Aug 30, 2024 12:00 AM Outpatient Encounter COMMUNITY CARE CONSULT IHE Encounter Template Text not used by VA Plan of Treatment: Future Appointments (+ 6 months) and Future Tests (+/- 45 days) The Plan of Treatment section includes future care activities for the patient from all [place] treatmentfacilities. This section includes future appointments and future orders which are active, pending or scheduled. Future Appointments This section includes appointments that were scheduled to occur 6 months from the date of the Encounter, up to a maximum of 20 appointments. The data comes from all [place] treatment facilities. Appointment Date/Time Appointment Type Appointme nt Facility Name 2024 09:00 AM AMBULATORY - [facility]ERY [facility] Nov 15, 2024 10:00 AM AMBULATORY - NONE [facility] Jan 25, 2025 08:45 AM AMBULATORY - NONE [facility] Jan 25, 2025 10:00 AM [facility]IC[facility] Encounter Notes: All associated encounter notes This section contains the clinical notes associated to the Encounter. Date/Time Encounter Note(s) Provider Source Aug 30, 2024 12:00 AM NONVA CONSULT: LOCAL TITLE: COMMUNITY CARE-CONSULT RESULT NOTE STANDARD TITLE: NONVA CONSULT DATE OF NOTE: AUG 30, 2024 ENTRY DATE: SEP 13, 2024@19:56:13 AUTHOR: LINDA WATSON EXP COSIGNER: URGENCY: STATUS: COMPLETED VistA Imaging - Scanned Document [facility] 08.30.24 VISIT /es/ LINDA WATSON [facility] INFORMATION MGT SERVICE Signed: 09/13/2024 19:56 LINDA WATSON [facility]
--- OUTSIDE RECORDS SUMMARY | 2024-09-25 15:32 | XMS_ITS | Encounter Summary ---
Author Name [facility] [place] Organization [facility] [place] [facility] [place] Address [address], [place] [address] Care Team Providers Care Hygiene Coordinator Name Role Phone LORENA COLLINS Primary Care Provider Unavailabl e Selected Encounter This section includes the information on record at [place] for the Encounter. Date/Time Encounter Type Encounter Description Reason Pro vider Source Sep 08, 2024 01:46 PM Outpatient Encounter COMMUNITY CARE CONSULT IHE Encounter [...] Name 2024 09:00 AM AMBULATORY - SURGERY [facility] Nov 15, 2024 10:00 AM AMBULATORY - NONE [facility] Jan 25, 2025 08:45 AM AMBULATORY - NONE [facility] Jan 25, 2025 10:00 AM AMBULATORY - MEDICINE [facility] Encounter Notes: All associated encounter notes This section contains the clinical notes associated to the Encounter. Date/Time Encounter Note(s) Provider Source Aug 30, 2024 01:46 PM NONVA CONSULT: LOCAL TITLE: COMMUNITY CARE-CONSULT RESULT NOTE STANDARD TITLE: NONVA CONSULT DATE OF NOTE: AUG 30, 2024@13:46 ENTRY DATE: SEP 08, 2024@13:47:08 AUTHOR: SATISH OSUNA EXP COSIGNER: URGENCY: STATUS: COMPLETED The following Community Care consult has been completed. See scanned document for report. Community Care Consult Results Other: PT THE INFORMATION BELOW IS A PARTIAL SUMMARY THAT WAS TRANSCRIBED FROM AN ELECTRONIC DOCUMENT AND IS NOT TO BE USED FOR CLINICAL DECISION-MAKING PCP/REVIEWING PROVIDER: PLEASE REVIEW THE COMPLETE SIGNED DOCUMENT THAT WAS SENT TO [facility] FOR SCANNING. THE BELOW DOCUMENTATION IS A MACHINE RIGGER AND NOT THE DOCUMENTATION OF THE [facility] REPRODUCER FACILITY/PROVIDER: Mckenna Holliday SPECIALTY: PT DATE OF SERVICE: 08/30/2024 DIAGNOSIS: R Knee Pain PROVIDER RECOMMENDATIONS: Continue treatment plan /es/ SATISH OSUNA, RN OCC RN Inflated Pad Buffer Signed: 09/08/2024 13:50 SATISH OSUNA [facility]
[2024-09-25] MEDS: carvedilol 3.125 mg Tablet PO (15:33)
[2024-09-25] MEDS: aspirin 81 mg EC Tablet PO (15:33)
[2024-09-25 15:40] LABS: Amphetamines Screen Urine Negative (Negative); Barbiturates Screen Urine Negative (Negative); Benzodiazepines Screen Urine Negative (Negative); Cocaine Screen Urine Negative (Negative); Opiate Screen Urine Negative (Negative); PCP Screen Urine Negative (Negative); THC Screen Urine Negative (Negative)
[2024-09-25 15:55] LABS: D Dimer 0.78 ug/mLFEU (0-0.59)
[2024-09-25 16:01] LABS: Troponin 5 6HR 9.39 ng/L (0-15)
[2024-09-25 16:03] LABS: Troponin 5 6HR Delta -1.61 ng/L (0-12)
[2024-09-25 16:13] LABS: Estmated Average Glucose 114; Hemoglobin A1C 5.6 % (4.0-6.0)
[2024-09-25] MEDS: atorvastatin 40 mg Tablet PO (20:58)
[2024-09-26] VITALS (8 sets, daily range): BP systolic 111–138; BP diastolic 66–76; PULSE 51–79; RESP 12–22; TEMP 36.4–36.9; O2SAT 92–96
[2024-09-26] MEDS: carvedilol 3.125 mg Tablet PO ×2 (02:26→15:14)
[2024-09-26 03:38] LABS: Basophils # 0.1 10^3/uL (0.0-0.1); Eosinophils # 0.1 10^3/uL (0.0-0.8); Eosinophils % 1.5 %; Hematocrit 44.7 % (37-53); Lymphocytes % 27.2 %; Mean Corpuscular Hemoglobin 25.9 pg (27-33); Mean Corpuscular Volume 80.8 fl (82-101); Mean Platelet Volume 8.1 fL (7.4-10.4); Monocytes # 0.8 10^3/uL (0.2-0.9); Monocytes % 11.7 %; Neutrophils % 58.2 %; Nucleated Red Blood Cells % 0 %; Platelet Count 169 10^3/cmm (157-399); Red Blood Count 5.53 10^6/uL (3.85-5.65); Red Cell Distribution Width 14.3 % (12.1-15.1); White Blood Count 7.21 10^3/uL (3.29-11.43)
[2024-09-26 03:57] LABS: Alanine Aminotransferase 16 U/L (0-41); Albumin Level 3.6 g/dL (3.5-5.2); Alkaline Phosphatase 78 U/L (40-130); Anion Gap 11.7 (5-19); Aspartate Amino Transferase 13 U/L (0-40); Blood Urea Nitrogen 13 mg/dL (8-23); Carbon Dioxide 24 mmol/L (22-29); Chloride 103 mmol/L (98-107); Creatinine Clr Calc Pharmacy 105.9424; Globulin 2.4 g/dL (1.3-4.6); Glucose 111 mg/dL (65-115); Magnesium 2.1 mg/dL (1.7-2.3); Osmolality Calculated 281 mOsm/kg (285-295); Phosphorus 4.4 mg/dL (2.5-4.5); Potassium 3.7 mmol/L (3.5-5.1); Sodium 135 mmol/L (136-145); Total Bilirubin 0.3 mg/dL (0.15-1.2)
[2024-09-26] MEDS: sodium chloride 0.9% 1,000 ML 50 ML IV (04:32)
[2024-09-26] MEDS: diphenhydrAMINE 50 mg Capsule PO (04:55)
--- NOTE | 2024-09-26 05:45 | XACV_ITS ---
Exam Room: 2 Ht: 173 cm Wt: 93 kg BSA: 2.14 m2 Gender: Male : 1960 Any Known Allergies: Other Exam Priority: Routine Procedure(s): Procedure Description: Diagnostic procedure Procedure Description: Coronary Angiography Diagnostic Cath Status: Urgent Diagnostic Findings * INDICATION: Unstable angina. * Left Main has no significant disease. * Circumflex has no significant disease. * LAD is a tortuous and calcified vessel. Proximal Left Anterior Descending to Mid Left Anterior Descending: critical 95% stenosis, MARY JO: 3 flow. * RCA is a calcified and tortuous vessel. Proximal Right Coronary Artery to Mid Right Coronary Artery: moderate 50% stenosis, MARY JO: 3 flow. * Mid Left Anterior Descending: significant 80% stenosis, MARY JO: 3 flow. * Mid Right Coronary Artery to Distal Right Coronary Artery: severe 90% stenosis, MARY JO: 3 flow. * Distal Right Coronary Artery: significant 80% stenosis, MARY JO: 3 flow. * 1st Diagonal: severe 90% stenosis, MARY JO: 3 flow. * Coronary angiography shows right dominance. Conclusions 1. Severe multivessel CAD including proximal to mid, mid LAD, diagonal artery, mid and distal RCA stenosis. Recommendations * We will transfer patient to center with CT surgery availability for CABG evaluation. Interventional RX Recommendation: CABG Diagnostic RX Recommendation: CABG Anticoagulation: Heparin Pressures Phase:Rest AO : 101 / 74 ( 88 ) @ 6:27:00 AM 105 / 66 ( 83 ) @ 6:43:00 AM Clinical Evaluation EBL: 5mL-10mL Procedural Details Procedure Consent Obtained. Pre-Procedure Time Out. Identified patient by full name and date of as verbalized by the patient/guarantor. Does the consent match the physician's order: Yes. Accurate & Complete Informed Consent: Yes. Inpatient/Outpatient History & Physical on Chart: Yes. If H&P is completed, is and addenduem needed: Yes. Visualize and Verify Site with Patient/Guarantor: N/A. Relevant Radiology Images available: Yes. The risks, benefits, and alternatives of sedation and/or procedure were discussed by physician. The patient agrees to continue. Procedure started. [facility] Clinical Fraility Score: 3: Managing Well. 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 Chest Pain Symptom Assessment: Typical Angina Symptoms. Cardiovascular Instability: No. Correct patient, site and procedure confirmed by cath team. PERRLA. Strong, equal hand inseam leveler bilaterally. Lungs clear x 5 lobes. IV Site on Arrival: 20 gauge in the left anticubital. IV Fluids: 0.9% NaCl at KVO. 50 mL infused prior to test lab technician. Pre Procedural Pulses: bilateral dorsalis pedis was 3+. Pre Procedural Pulses: bilateral posterior tibial was 2+. Pre Procedural Pulses: bilateral radial was 3+. Oxygen started at 2liters/min via nasal canula. right groin was prepped with chloroprep then draped in the usual sterile fashion. right radial was prepped with chloroprep then draped in the usual sterile fashion. Physician notified. Baseline sample Acquired. HR: 58 BPM. Patient's family unavailable. Patient stated that he would update on his own after the procedure. Equipment: 6F - Radial. Cardiac Cath Pack. ACIST Manifold Kit Model BT 2000. Heparinized Saline (2 units/mL), 1000 mL bag. Physician arrived. Physician scrubbed in. Immediate Pre-Procedure Time Out. Correct Patient: Yes; Correct Procedure: Yes; Correct Site: Yes; Correct Patient Position: Yes; Correct Supplies: Yes; Dried Flammable Prep: Yes; Blood Products Available: N/A;. Lidocaine 1% infiltrated to the right radial. Arterial access obtained. A 5 singaporean TIG catheter in over the exchange J wire. Catheter removed over the exchange J wire. A 5 singaporean JR4 catheter in over the exchange J wire. Multiple views taken of right coronary artery. Catheter removed over the exchange J wire. A 5 singaporean JL3.5 catheter in over the exchange J wire. Catheter removed over the exchange J wire. A 5 singaporean JL4 catheter in over the exchange J wire. Catheter removed over the exchange J wire. Aborting radial approach, will move to femoral. A TR Band was successful obtaining hemostatsis at the Right Radial artery insertion site. Lidocaine 1% infiltrated to the right groin. Arterial access obtained with micropuncture set. A 5 singaporean JL4 catheter in over the standard J wire. Multiple views taken of left coronary artery. Catheter removed over the standard J wire. Dr. Sánchez scrubbed out to view cineography. Flushing the sheath periodically with heparinized saline to maintian patency. Dr. Sánchez scrubbed back in. A Right femoral angiogram was performed to determine safe placement of closure device. A Mynx was successful obtaining hemostatsis at the Right Femoral artery insertion site. Lot # [id number]. Exp. . Mynx placed without complications. No signs or symptoms of hematoma noted. Sterile dressing applied per usual sterile fashion. Post Procedure: Pulses reassessed and unchanged. PERRLA. Strong, equal hand inseam leveler bilaterally. No VTE prophylaxis required. Medication's Wasted: Lidocaine 1% = 10 mL. Medication's Wasted: Nitro = 49.8 mg. Medication's Wasted: Heparin = 1000 units. Medication's Wasted: Other = Fentanyl 25 mcg. Total IV fluids: 50 mL. Post-op diagnosis: Multivessel CAD. Complications: none. Estimated blood loss: 5mL-10mL. Responsiveness - Normal response to verbal stimuli; alert and oriented, PERRLA. Airway - Unaffected, no intervention required; spontaneous ventilation. Circulation: W/N/L, pulses unchanged. Nausea/Vomiting: No. Procedure completed. Patient transferred by bed to 1st floor. Vital chart was stopped. Access Site Site: Right Radial artery Sheath Size: 6 Fr Hemostasis Method: TR Band Hemostasis Success: Successful Site: Right Femoral artery Sheath Size: 6 Fr Hemostasis Method: Mynx Hemostasis Success: Successful Procedure Medications Start: 6:11 AM Stop: 6:11 AM Medication: Versed Amount: 1 mg Route: I.V. Start: 6:11 AM Stop: 6:11 AM Medication: Fentanyl Amount: 50 mcg Route: I.V. Start: 6:20 AM Stop: 6:20 AM Medication: Nitrogylcerin Amount: 200 mcg Route: I.A. Start: 6:23 AM Stop: 6:23 AM Medication: Heparin Amount: 5000 units Route: I.V. Start: 6:39 AM Stop: 6:39 AM Medication: Fentanyl Amount: 25 mcg Route: I.V. Start: 6:45 AM Stop: 6:45 AM Medication: Versed Amount: 1 mg Route: I.V. I, the attending physician, have reviewed and verified all procedure medications. Yes, all medications given per verbal order History/Risk Factors Hypertension: No Dyslipidemia: No Peripheral Arterial Disease (PAD): No Myocardial Infarction (IL): No Obesity: No Renal Disease: No Tobacco Use: Never Prior Interventions PCI: No CABG: No Valve Surgery: No Report Signatures Finalized by Tripp Sánchez MD on 09/26/2024 10:14 AM
--- NOTE | 2024-09-26 05:56 | P.HPUD_ITS ---
Surgery/Procedure H&P Update DATE OF PROCEDURE: September 26, 2024 DATE H&P PERFORMED: 09/25/24 H&P UPDATE INFORMATION: I have reviewed H&P completed within last 30 days, I have examined patient prior to procedure and No changes to prior documentation PREOP DIAGNOSIS: Worsening/unstable angina PRIMARY INDICATION FOR PROCEDURE: Worsening/unstable angina PLANNED PROCEDURE: Operation Date: 09/26/24 06:00 Proposed Procedures p Cardiac Catheterization(Left) - Tripp Sánchez M.D Possible percutaneous coronary intervention PATIENT REASSESSED PRIOR TO SEDATION, WITH NO CHANGE NOTED: Yes PHYSICAL EXAM: alert, oriented x 3, clear to auscultation bilaterally and reg ular rate & rhythm AIRWAY EVAL/ANESTHESIA PLAN: normal airway, ASA III, Local Anesthesia, Risks, benefits & alternatives of sedation and/or procedure discussed and Patient agre es to continue as planned ADDITIONAL INFORMATION: Moderate sedation
--- NOTE | 2024-09-26 06:14 | PC.NURSE ---
patient was taken to odd job laborer at [id number]
--- NOTE | 2024-09-26 07:05 | PM.PROC ---
Procedure Note: Date of procedure: 09/26/24 Pre-procedure diagnosis: Unstable angina Post-procedure diagnosis: other (Severe multivessel coronary artery disease) Procedure: Left main artery is patent. LAD has critical long, 95-99% proximal to mid vessel lesion. Mid to distal LAD has severe 80% stenosis. Proximal medium sized diagonal artery 90% stenosis. Proximal to mid RCA has 60% stenosis. Mid RCA has a severe 90% stenosis. Distal RCA has severe 80% stenosis. Tortuous vessels With severe multivessel, multilevel CAD, will recommend CABG Performing Provider: Tripp Sánchez Estimated blood loss (mL): 5 Complications: None Condition: stable Disposition: floor Coding Level of Care Code Acute Code for Chg Fwd
--- NOTE | 2024-09-26 07:32 | PC.NURSE ---
Mr Blum arrived back on the floor at 0710 with Abbey Liu RN and Mason Liu RN. TR band with 15ml in place on right wrist and r femoral minx closure in place.
[2024-09-26] MEDS: aspirin 81 mg EC Tablet PO (09:09)
--- NOTE | 2024-09-26 10:06 | PC.CHAP ---
Pastoral Care Encounter/Spiritual Assessment Type of Contact [] Declined solderer assembler visit [] Patient/Family/Request visit [] Outpatient visit [] Follow-up visit [] Physician referral [] Code/Alert [x] Routine visit [] Staff referral [] Actively dying [] Patient sleeping [] Family support [] [] Out of room [] Palliative care [] [] Receiving care in room [] Pre-surgical visit [] Trauma [] Long length of stay [] ICU visit [] Other: Relational/Emotional Strength [x] Patient feels connected with others/family/visitors/staff [] Distress [] Loneliness/isolation [] Abandonment Spirituality of Patient [x] Person of Ofe [] Attends Shinto of their Ofe [] Believes in Prayer [] Reads Bible or Uatsdin materials [] There are Spiritual issues to be addressed Cook Boat Interventions [x] Prayer [x] Active listening [] Non-anxious presence [x] Spiritual/emotional support [] Crisis/trauma care [] Spiritual counseling [] Bereavement support [] Provided bereavement packet [] Provided Bible/devotional materials [] Provided toy/stuffed animal, coloring book to patient or family member [] Provided Communion [] Anointing/Homeland [] Salvation [x] Completed spiritual assessment [] Other: Impact on Illness or Injury [] Angry [] Fearful [] Anxious [] Often cries [] Exhaustion [] Unable to work [] Unable to attend anabaptism [] Unable to walk/stand [] Unable to read [] Unable to drive [] Unable to eat/drink [] Unable to sleep [] Unable to be with family [] Patient intubated [] Other: Summary Time spent with patient 5 min
--- NOTE | 2024-09-26 11:45 | P.PN_ITS ---
<Statement entered by Tripp Sánchez M.D - 09/26/24 23:19> Patient was evaluated and cared for in conjunction with an advanced practice practitioner. I personally examined the patient and reviewed the chart and all pertinent data including imaging, telemetry, and laboratory results. I discussed the patient in detail with the advanced practice practitioner. Please see their note for complete progress note, results and agreed upon plan of care for the patient. GENERAL: Patient is alert and oriented HEART: Regular S1 and S2 LUNGS: Clear to auscultation bilaterally EXTREMITIES: Lower extremities with no edema Subjective 2 Subjective: Patient status post cath today. Has severe three-vessel disease. He is not complaining any chest pain or shortness of breath at this time. Vitals/I&O/Wt Last Vital Signs Temp 98.0 F 09/26/24 11:25 Pulse 71 09/26/24 11:25 Resp 22 H 09/26/24 11:25 BP 138/68 09/26/24 11:25 Pulse Ox 95 09/26/24 11:25 O2 Del Method Room Air 09/26/24 11:25 09/25/24 09/26/24 09/26/24 22:59 06:59 14:59 Intake Total 440 / 440 100 / 540 240 / 240 Output Total 400 / 400 Balance 40 / 40 100 / 140 240 / 240 Weight last 48 hrs Weight 233 lb 3.2 oz Weight 205 lb Physical Exam 2 Narrative: General: No apparent distress, healthy appearing, well nourished HENMT: normoceophalic Muskuloskeletal: Full ROM Lymphatic: no lymphedema noted Respiratory: Normal respiratory effort, clear to auscultation bilaterally throughout all lung landeros, no use of accessory muscles Cardio: No JVD, regular rate, regular rhythm, S1 S2 normal, no murmurs, peripheral pulses 2+ radial palpated bilaterally GI: Normal to inspection, nondistended Extremities: Full ROM, normal, normal capillary refill, no cyanosis or edema Neuro: Alert and oriented x4, no focal motor deficits Psych: Affect normal, denies suicidal ideation, mental status grossly normal Skin: No rashes or lesions noted, no wounds Data 09/26/24 03:14 09/26/24 03:14 A&P Assessment and plan (1) Chest pain: Qualifiers: Chest pain type: other chest pain Qualified Code(s): R07.89 - Other chest pain (2) Unstable angina: Plan Patient has severe 3 vessel coronary artery disease. Will need CABG. He is awaiting transfer to Dr. Salas at [facility]. PDMP PDMP Reviewed: Not Reviewed Attestations 2 Medical Necessity Statement*: Deferred to primary. Coding Level of Care Code Acute Code for Chg Fwd Diagnoses Other chest pain R07.89 Chest pain type: other chest pain Unstable angina I20.0
[2024-09-26] MEDS: pantoprazole 40 mg SDV IVP (15:14)
[2024-09-26] MEDS: enoxaparin 40 mg/0.4 mL Syringe SUBCUT (15:14)
--- NOTE | 2024-09-26 16:57 | P.PN_ITS ---
Subjective 2 Subjective: Patient was seen this morning, seen after his cardiac catheterization patient is going to need transfer to [facility] for CABG, he tells me his is in [place], and he has notified his , I offered talking to his about his hospitalization, his test results however he has declined, as he does not want to worry her Vitals/I&O/Wt Last Vital Signs Temp 98.3 F 09/26/24 15:50 Pulse 72 09/26/24 15:50 Resp 15 09/26/24 15:50 BP 124/66 09/26/24 15:50 Pulse Ox 95 09/26/24 15:50 O2 Del Method Room Air 09/26/24 15:50 09/26/24 09/26/24 09/26/24 06:59 14:59 22:59 Intake Total 100 / 540 720 / 720 Balance 100 / 140 720 / 720 Weight last 48 hrs Weight 105.778 kg Weight 92.986 kg Physical Exam 2 Const: COMMON NORMALS: no acute distress and patient oriented x3 Resp: COMMON NORMALS: normal respiratory effort, No retractions, No use of accessory muscles and clear to auscultation bilaterally AUSCULTATION: clear to auscultation bilaterally Cardio: COMMON NORMALS: regular rate, regular rhythm, S1 normal heart sound present and S2 normal heart sound present RATE: regular rate RHYTHM: r egular rhythm HEART SOUNDS: S1 normal heart sound present and S2 normal heart sound present GI: COMMON NORMALS: Normal to inspection, nondistended, normoactive bowel sounds present and non-tender Extremity: COMMON NORMALS: no pedal edema Neuro: COMMON NORMALS: patient oriented x3 Psych: COMMON NORMALS: mental status grossly normal Data 09/26/24 03:14 09/26/24 03:14 A&P Assessment and plan (1) Chest pain: Qualifiers: Chest pain type: other chest pain Qualified Code(s): R07.89 - Other chest pain Plan Chest pain -Serial EKGs, short troponins, telemetry monitoring -Aspirin, statin, Coreg -Cardiac echo CONCLUSIONS LV systolic function is normal with EF of 55-60% Grade 1 diastolic dysfunction Trace mitral regurgitation Mild tricuspid regurgitation No comparison studies are available. Underwent coronary angiography -Left main artery is patent. LAD has critical long, 95-99% proximal to mid vessel lesion. Mid to distal LAD has severe 80% stenosis. Proximal medium sized diagonal artery 90% stenosis. Proximal to mid RCA has 60% stenosis. Mid RCA has a severe 90% stenosis. Distal RCA has severe 80% stenosis. -With severe multivessel, multilevel CAD, will recommend CABG -Awaiting for a bed at [facility] -Venous ultrasound negative for DVT -Full code -Lovenox for dvt prophylaxis PDMP PDMP Reviewed: Not Reviewed Attestations 2 Medical Necessity Statement*: Patient requires CABG, awaiting a bed for transfer at [facility] Diagnoses Other chest pain R07.89 Chest pain type: other chest pain
--- NOTE | 2024-09-26 18:09 | P.TS_ITS ---
Transfer Summary Providers Date of Admission: 09/25/24 14:26 Date of Discharge/Transfer: 09/26/24 Attending Provider at Admission: Chemo Warren MD Attending Provider at Transfer: Chemo Warren MD Transfer Plans: Anticipated date of transfer: 09/26/24 . Diagnoses at Discharge Discharge Diagnosis (1) Chest pain: Status: Acute Qualifiers: Chest pain type: other chest pain Qualified Code(s): R07.89 - Other chest pain Reason for Visit Reason for Visit jaiden camejo, sent from [facility] Course Hospital Course Jitendra Blum is a 63 year old male with a past medical history of right knee surgery, no hypertension no hyperlipidemia, no cardiovascular disease, no history of strokes, no history of diabetes, who presents [facility] for complaints of chest pain and shortness of breath. Patient tells me that he had his knee surgery back in June, he has been attending physical therapy, he tells me with physical therapy with exertion he has been experiencing increa sed shortness of breath and chest pain with exertion, improves with rest, no calf pain, no calf swelling no hemoptysis, he tells me that the chest pain has been increasing with frequency and intensity with exertion improving with rest, no rest pain Patient was admitted to [facility] for chest pain -Serial EKGs, short troponins, telemetry monitoring -Aspirin, statin, Coreg -Cardiac echo CONCLUSIONS LV systolic function is normal with EF of 55-60% Grade 1 diastolic dysfunction Trace mitral regurgitation Mild tricuspid regurgitation No comparison studies are available. Underwent coronary angiography -Left main artery is patent. LAD has critical long, 95-99% proximal to mid vessel lesion. Mid to distal LAD has severe 80% stenosis. Proximal medium sized diagonal artery 90% stenosis. Proximal to mid RCA has 60% stenosis. Mid RCA has a severe 90% stenosis. Distal RCA has severe 80% stenosis. -With severe multivessel, multilevel CAD, recommend CABG, cardiology has spoken to [facility] transfer for CABG -Patient voiced understanding, all questions answered, agreed to proceed Physical Exam Const: COMMON NORMALS: no acute distress and patient oriented x3 Resp: COMMON NORMALS: normal respiratory effort, No retractions, No use of accessory muscles and clear to auscultation bilaterally AUSCULTATION: clear to auscultation bilaterally Cardio: COMMON NORMALS: regular rate, regular rhythm, S1 normal heart sound present and S2 normal heart sound present RATE: regular rate RHYTHM: regular rhythm HEART SOUNDS: S1 normal heart sound present and S2 normal heart sound present GI: COMMON NORMALS: Normal to inspection, nondistended, normoactive bowel sounds present and non-tender Extremity: COMMON NORMALS: no pedal edema Neuro: COMMON NORMALS: patient oriented x3 Psych: COMMON NORMALS: mental status grossly normal TS Data Studies Completed and Pending Pending at discharge Category Date Time Status Complete Blood Count w/Auto AM LABS Lab 09/27/24 04:00 Ordered Complete Blood Count w/Auto AM LABS Lab 09/28/24 04:00 Ordered Comprehensive Metabolic Panel AM LABS Lab 09/27/24 04:00 Ordered Comprehensive Metabolic Panel AM LABS Lab 09/28/24 04:00 Ordered Magnesium AM LABS Lab 09/27/24 04:00 Ordered Magnesium AM LABS Lab 09/28/24 04:00 Ordered Phosphorus AM LABS Lab 09/27/24 04:00 Ordered Phosphorus AM LABS Lab 09/28/24 04:00 Ordered Completed Studies During Hospitalization Category Date Time Status EXCHANGE ARCHITECT request for service Routine Exams 09/26/24 05:45 Completed XR chest 1V portable [id number] Stat Exams 09/25/24 09:27 [place] [id number] Routine Ultrasound 09/25/24 14:30 Completed CV. echo complete* [id number] Routine Ultrasound 09/25/24 14:55 Completed Laboratory Last Values WBC 7.21 10^3/uL (3.29-11.43) 09/26/24 03:14 RBC 5.53 10^6/uL (3.85-5.65) 09/26/24 03:14 Hgb 14.30 g/dL (11.27-16.99) 09/26/24 03:14 Hct 44.7 % (37-53) 09/26/24 03:14 MCV 80.8 fl (82-101) L 09/26/24 03:14 MCH 25.9 pg (27-33) L 09/26/24 03:14 MCHC 32.0 g/dL (30-55) 09/26/24 03:14 RDW 14.3 % (12.1-15.1) 09/26/24 03:14 Plt Count 169 10^3/cmm (157-399) 09/26/24 03:14 MPV 8.1 fL (7.4-10.4) 09/26/24 03:14 Neut % (Auto) 58.2 % 09/26/24 03:14 Lymph % (Auto) 27.2 % 09/26/24 03:14 [place] % (Auto) 11.7 % 09/26/24 03:14 Eos % (Auto) 1.5 % 09/26/24 03:14 Baso % (Auto) 1.0 % 09/26/24 03:14 Neut # (Auto) 4.20 10^3/uL (1.8-7.7) 09/26/24 03:14 Lymph # (Auto) 2.0 10^3/uL (0.8-4.8) 09/26/24 03:14 [place] # (Auto) 0.8 10^3/uL (0.2-0.9) 09/26/24 03:14 Eos # (Auto) 0.1 10^3/uL (0.0-0.8) 09/26/24 03:14 Baso # (Auto) 0.1 10^3/uL (0.0-0.1) 09/26/24 03:14 Nucleated RBC % (auto) 0 % 09/26/24 03:14 Nucleated RBCs # 0.0 /100WBC 09/26/24 03:14 D-Dimer 0.78 ug/mLFEU (0-0.59) H 09/25/24 15:11 Sodium 135 mmol/L (136-145) L 09/26/24 03:14 Potassium 3.7 mmol/L (3.5-5.1) 09/26/24 03:14 Chloride 103 mmol/L (98-107) 09/26/24 03:14 Carbon Dioxide 24 mmol/L (22-29) 09/26/24 03:14 Anion Gap 11.7 (5-19) 09/26/24 03:14 BUN 13 mg/dL (8-23) 09/26/24 03:14 Creatinine 0.8 mg/dL (0.7-1.2) 09/26/24 03:14 GFR Calculation 98.0 mL/min (90-130) 09/26/24 03:14 Glucose 111 mg/dL (65-115) 09/26/24 03:14 Estimat Average Glucose 114 09/25/24 15:11 Hemoglobin A1c 5.6 % (4.0-6.0) 09/25/24 15:11 Calculated Osmolality 281 mOsm/kg (285-295) L 09/26/24 03:14 Calcium 9.0 mg/dL (8.5-10.5) 09/26/24 03:14 Phosphorus 4.4 mg/dL (2.5-4.5) 09/26/24 03:14 Magnesium 2.1 mg/dL (1.7-2.3) 09/26/24 03:14 Total Bilirubin 0.3 mg/dL (0.15-1.2) 09/26/24 03:14 AST 13 U/L (0-40) 09/26/24 03:14 ALT 16 U/L (0-41) 09/26/24 03:14 Alkaline Phosphatase 78 U/L (40-130) 09/26/24 03:14 Troponin T Baseline 11 ng/L (0-15) 09/25/24 09:39 Troponin T 120 Minute 8.51 ng/L (0-15) 09/25/24 11:30 Delta Troponin T -2.49 ABS# (0-10) L 09/25/24 11:30 Troponin T Hi Sens 6Hr 9.39 ng/L (0-15) 09/25/24 15:11 Troponin T Hi Sens 6Hr Delta -1.61 ng/L (0-12) L 09/25/24 15:11 NT-Pro-B Natriuret Pep < 36 pg/mL (0-125) 09/25/24 11:30 Total Protein 6.0 g/dL (6.6-8.7) L 09/26/24 03:14 Albumin 3.6 g/dL (3.5-5.2) 09/26/24 03:14 Globulin 2.4 g/dL (1.3-4.6) 09/26/24 03:14 Triglycerides 131 mg/dL (0-150) 09/25/24 11:30 Cholesterol 188 mg/dL (0-200) 09/25/24 11:30 LDL Cholesterol, Calc 119 mg/dL (50-129) 09/25/24 11:30 HDL Cholesterol 43 mg/dL (60-100) L 09/25/24 11:30 LDL/HDL Ratio 2.77 RATIO (0.00-3.22) 09/25/24 11:30 Cholesterol/HDL Ratio 4.37 mg/dL (1.0-5.00) 09/25/24 11:30 TSH 2.24 uIU/mL (0.27-4.20) 09/25/24 11:30 Urine Opiates Screen Negative ng/mL (Negative) 09/25/24 15:10 Ur Barbiturates Screen Negative ng/mL (Negative) 09/25/24 15:10 Ur Phencyclidine Scrn Negative ng/mL (Negative) 09/25/24 15:10 Ur Amphetamines Screen Negative ng/mL (Negative) 09/25/24 15:10 U Benzodiazepines Scrn Negative ng/mL (Negative) 09/25/24 15:10 Urine Cocaine Screen Negative ng/mL (Negative) 09/25/24 15:10 U Marijuana (THC) Screen Negative ng/mL (Negative) 09/25/24 15:10 Ethyl Alcohol < 10 mg/dL (0-10) 09/25/24 11:30 Influenza A (PCR) Negative (Negative) 09/25/24 09:42 Influenza Type B (PCR) Negative (Negative) 09/25/24 09:42 RSV (PCR) Negative (Negative) 09/25/24 09:42 SARS-CoV-2 (PCR) Negative (Negative) 09/25/24 09:42 Radiology Impressions Chest X-Ray 09/25/24 09:27 IMPRESSION: No acute findings. Recent Clincial Data Last Vital Signs Temp 98.3 F 09/26/24 15:50 Pulse 70 09/26/24 17:55 Resp 15 09/26/24 15:50 BP 124/66 09/26/24 15:50 Pulse Ox 95 09/26/24 15:50 O2 Del Method Room Air 09/26/24 15:50 Vital Signs Temp Pulse Resp BP Pulse Ox O2 Del Method 09/26/24 17:55 70 09/26/24 15:50 98.3 F 72 15 124/66 95 Room Air 09/26/24 11:25 98.0 F 71 22 H 138/68 95 Room Air 09/26/24 07:27 98.0 F 51 L 12 111/67 96 Room Air Intake & Output/Weight 0209/25/24 09/26/24 09/27/24 06:59 06:59 06:59 06:59 Intake Total 540 / 540 720 / 720 Output Total 400 / 400 Balance 140 / 140 720 / 720 Weight 105.778 kg Vitals Last Vital Signs Temp 98.3 F 09/26/24 15:50 Pulse 70 09/26/24 17:55 Resp 15 09/26/24 15:50 BP 124/66 09/26/24 15:50 Pulse Ox 95 09/26/24 15:50 O2 Del Method Room Air 09/26/24 15:50 TS Medications Medications Acetaminophen (Acetaminophen 325 Mg Tablet) 650 mg PO Q6H PRN PRN Reason: Mild/Mod Pain Or Temp >/= 101 Aspirin (Aspirin 81 Mg Ec Tablet) 81 mg PO DAILY [facility] Last Admin: 09/26/24 09:09 Dose: 81 mg Atorvastatin Calcium (Atorvastatin 40 Mg Tablet) 40 mg PO BEDTIME [facility] Last Admin: 09/25/24 20:58 Dose: 40 mg Carvedilol (Carvedilol 3.125 Mg Tablet) 3.125 mg PO Q12H [facility] Last Admin: 09/26/24 15:14 Dose: 3.125 mg Enoxaparin Sodium (Enoxaparin 40 Mg/0.4 Ml Syringe) 40 mg SUBCUT Q24H [facility] Last Admin: 09/26/24 15:14 Dose: 40 mg Sodium Chloride (Sodium Chloride 0.9%) 1,000 mls @ 50 mls/hr IV .Q20H ONE Stop: 09/26/24 23:59 Last Admin: 09/26/24 04:32 Dose: 50 mls/hr Morphine Sulfate (Morphine 4 Mg/Ml Sdv 1 Ml) 2 mg IVP Q4H PRN PRN Reason: SEVERE PAIN Naloxone HCl (Naloxone 0.4 Mg/Ml Sdv) 0.1 mg IVP Q2M PRN PRN Reason: OPIATERV Ondansetron HCl (Ondansetron 2 Mg/Ml Sdv 2 Ml) 4 mg IVP Q8H PRN PRN Reason: vomiting, or N/V if npo Pantoprazole Sodium (Pantoprazole 40 Mg Sdv) 40 mg IVP Q24H [facility] Last Admin: 09/26/24 15:14 Dose: 40 mg Discontinued Medications Diphenhydramine HCl (Diphenhydramine 50 Mg Capsule) 50 mg PO ONCE ONE Stop: 09/26/24 05:01 Last Admin: 09/26/24 04:55 Dose: 50 mg Fentanyl (Fentanyl 50 Mcg/Ml Inj 2ml) Confirm Administered Dose 100 mcg .ROUTE .STK-MED ONE Stop: 09/26/24 05:27 Heparin Sodium (Porcine) (Heparin 5,000 Unit/Ml Inj 1 Ml) Confirm Administered Dose 10,000 unit .ROUTE .STK-MED ONE Stop: 09/26/24 05:27 Lidocaine HCl (Xylocaine) Confirm Administered Dose 20 mls @ as directed .ROUTE .STK-MED ONE Stop: 09/26/24 05:27 Midazolam HCl (Midazolam 1 Mg/Ml Inj 2 Ml) Confirm Administered Dose 2 mg .ROUTE .STK-MED ONE Stop: 09/26/24 05:27 Nitroglycerin (Nitroglycerin 5 Mg/Ml Sdv 10 Ml) Confirm Administered Dose 50 mg .ROUTE .STK-MED ONE Stop: 09/26/24 05:27 Allergies bee venom protein (honey bee) Allergy (Verified 09/25/24 09:20) Unknown peppermint Allergy (Verified 09/25/24 09:20) Unknown Home Medications No Known Home Medications 09/25/24 [History Confirmed 09/25/24] Discharge Plan Discharge Patient Disposition: Home Condition: Stable Prescriptions: No Action No Known Home Medications Patient Instructions: Opioid Safety Transfer Attestations Time Spent in Transfer Care: greater than 30 min Quality Metrics Clinical Quality Measures [ No reported AMI, CVA or VTE this stay] Coding Level of Care Code 54499 Total time (in minutes) for Discharge: 45 Diagnoses Other chest pain R07.89 Chest pain type: other chest pain
== END 2024-09-26 19:34 | disposition short-term general hospital (02) | DRG 287 ==
LOC: ER 14:16 → CSU 15:28
PROVIDERS: Internal Medicine; Admitting Provider Family Medicine; Emergency Provider Family Medicine; Visit Provider Family Medicine
PROC: 4A023N7 Measurement of Cardiac Sampling and Pressure, Left Heart, Percutaneous Approach (ICD-10-PCS; principal; 2024-09-26 06:00)
DX: I25.110 Atherosclerotic heart disease of native coronary artery with unstable angina pectoris (principal)
CPT/HCPCS: 36415; 71045; 80053; 80061; 80306; 80307; 83036; 83735; 83880; 84100; 84443; 84484; 85025; 85378; 87637; 93005; 93306; 93454; 93970; 94664; 96372; 96374; 99152; 99153; 99285; C1760; C1769; C1887; C1894; G0269; J1644; J1650; J2250; J2470; J3010; J3490; J7030; Q0163; Q9967

== ENCOUNTER 2024-11-03 10:37 | Emergency (ER) | payer OTHER, SELFPAY ==
[2024-11-03 10:45] VITALS: BP 109/69; PULSE 77; RESP 17; TEMP 36.2; O2SAT 96; BMI 31.1
--- NOTE | 2024-11-03 11:56 | W.ED.BACK ---
HPI - Back Pain/Injury General: Chief Complaint: Back Pain/Injury Stated Complaint: left side lower back pain Time Seen by Provider: 11/03/24 11:45 History of Present Illness: 64-year-old male presents emergency room complaining of pain in his low back when he takes a deep breath. Patient is about 5 weeks out from open heart surgery. He has some left leg tingling and swelling has been going on since his surgery on the leg but they did a vein graft harvesting from. He has not had any fever sweats or chills when he takes a deep breath his low back pain is worse. He is not currently on any anticoagulants. No fever sweats chills no productive cough no vomiting or diarrhea Associated symptoms: Deny abdominal pain, chills, dysuria, fever(s) or urinary urgency Related Data Previous Rx's ?Medication ?Instructions ?Recorded diclofenac sodium 75 mg 75 mg PO Q12H PRN pain #20 tabs 11/03/24 tablet,delayed release tizanidine 4 mg tablet 4 mg PO Q6H PRN muscle spasticity 11/03/24 #20 tabs Allergies Allergy/AdvReac Type Severity Reaction Status Date / Time bee venom protein (honey bee) Allergy Unknown Verified 09/25/24 09:20 peppermint Allergy Unknown Verified 09/25/24 09:20 Review of Systems Const: Denies: fever(s) or chills Card: Denies: chest pain Resp: Denies: dyspnea GI: Denies: abdominal pain : Denies: dysuria, urinary frequency or urinary urgency Musc: Reports: back pain; Denies: neck pain Skin/Breast: Denies: rash PFSH ED PFSH: Medical History No pertinent family history Surgical History No pertinent past surgical history Social History Smoking and tobacco/nicotine status: never used tobacco/nicotine Alcohol intake: never Substance/Drug Use: never Physical Exam Const: GENERAL APPEARANCE: cooperative ORIENTATION/CONSCIOUSNESS: Yes awake, Yes oriented to person, Yes oriented to place and Yes oriented to time HENMT: COMMON NORMALS: normocephalic, atraumatic and hearing grossly normal bilaterally HEAD & SCALP: normocephalic and atraumatic Resp: COMMON NORMALS: normal respiratory effort, No retractions, No use of accessory muscles and clear to auscultation bilaterally AUSCULTATION: clear to auscultation bilaterally Cardio: COMMON NORMALS: regular rate, regular rhythm and No murmurs present (Cardio) RATE: regular rate RHYTHM: regular rhythm GI: COMMON NORMALS: Soft to palpation and No hepatosplenomegaly present AUSCULTATION: Yes normoactive bowel sounds PALPATION: Yes Soft to palpation, No Tenderness to palpation present (GI), No Guarding due to palpation present (GI) and Yes No hepatosplenomegaly present Extremity: COMMON NORMALS: normal to inspection, capillary refill normal, no clubbing, cyanosis or edema, no calf tenderness and no pedal edema OTHER: No pain with compression of the calf or palpation of the medial thigh no significant edema suggestive of DVT. Neuro: SENSORIUM/ORIENTATION: Yes oriented to person, Yes oriented to place and Yes oriented to time Skin: COMMON NORMALS: no rashes or lesions noted GENERAL SKIN EXAM: no rashes or lesions noted Course Vital Signs: Vital signs: Vital Signs Temperature 97.1 F L 11/03/24 10:45 Pulse Rate 78 11/03/24 15:25 Respiratory Rate 20 H 11/03/24 15:25 Blood Pressure 128/78 11/03/24 15:25 Pulse Oximetry 97 11/03/24 15:25 Oxygen Delivery Me thod Room Air 11/03/24 10:45 MDM - Back Pain/Injury Medical Decision Making Urine is negative for blood or infection. Chest x-ray was also unremarkable based on his presenting symptoms believe this is more musculoskeletal in nature will discharge patient home can use diclofenac or tizanidine as needed. Follow-up with primary care. Labs Radiology Impressions Chest X-Ray 11/03/24 12:08 IMPRESSION: Postoperative chest as above. No acute abnormality identified. Mild cardiomegaly. Laboratory Results Urine Color Yellow (Yellow) 11/03/24 14:00 Urine Appearance Clear (CLEAR) 11/03/24 14:00 Urine pH 6 (5-7) 11/03/24 14:00 Ur Specific [place] 1.015 (1.005-1.030) 11/03/24 14:00 Urine Protein Neg (Negative) 11/03/24 14:00 Urine Glucose (UA) Norm (Normal) 11/03/24 14:00 Urine Ketones Negative (Negative) 11/03/24 14:00 Urine Blood Neg (Negative) 11/03/24 14:00 Urine Nitrate Negative (Negative) 11/03/24 14:00 Urine Bilirubin Neg (Negative) 11/03/24 14:00 Urine Urobilinogen Neg mg/dL (Negative) 11/03/24 14:00 Ur Leukocyte Esterase Negative (Negative) 11/03/24 14:00 Urine RBC 0-2 /hpf (0-2) 11/03/24 14:00 Urine WBC 0-5 /hpf (0-5) 11/03/24 14:00 Ur Squamous Epith Cells 0-5 /hpf (0-5) 11/03/24 14:00 Amorphous Sediment Not Reportable 11/03/24 14:00 Urine Bacteria None seen /hpf (NONE) 11/03/24 14:00 Hyaline Casts 0-4 /lpf H 11/03/24 14:00 All radiology interpretation(s) finalized by discharge Discharge Plan Discharge Patient Disposition: Home Clinical Impression: Strain of lumbar region Condition: Stable Prescriptions: New tizanidine 4 mg tablet 4 mg PO Q6H PRN (Reason: muscle spasticity) Qty: 20 0RF Rx Instructions: do not exceed 3 doses per 24 hrs diclofenac sodium 75 mg tablet,delayed release (DR/EC) 75 mg PO Q12H PRN (Reason: pain) Qty: 20 0RF Discharge Orders: Discharge ED (Routine); Ordered 11/03/24 Ordered By: Sky Mata Discharge Diet: Usual diet Discharge Activity: Increase activity as tolerated Patient Instructions: Low Back Strain (ED), Lower Back Exercises (ED), Opioid Safety, Pain Management Activity Restrictions/Additional Instructions: Thank you for choosing [facility] for your healthcare needs today. It is very important that you follow up as instructed or that you return to the Emergency Department should you have concerns or if your condition changes or worsens in any way. Print Language: Kenyan Coding Level of Care Code ED [employer]cher for Phil Ortiz
--- NOTE | 2024-11-03 12:08 | XR_ITS ---
WS: [id number] XR chest 1V portable [id number] REASON FOR EXAM: Shortness of breath FINDINGS: Since the previous examination of 09/25/2024: The patient has undergone coronary artery bypass surgery. There is an implanted capsular cardiac device in the left chest. Thoracic aorta is unremarkable. The heart appears mildly enlarged. No acute pulmonary parenchymal or pleural abnormality is identified. XR/XR chest 1V portable [id number] IMPRESSION: Postoperative chest as above. No acute abnormality identified. Mild cardiomegal y.
[2024-11-03] MEDS: methylPREDNISolone sod succ 125 mg/2 mL INJ IVP (12:41)
[2024-11-03] MEDS: orphenadrine 30 mg/mL Inj 2 mL 60 MG IM (12:44)
[2024-11-03 12:45] VITALS: RESP 19; O2SAT 98
[2024-11-03] MEDS: morphine 4 mg/mL SDV 1 mL IVP (12:45)
[2024-11-03 13:19] VITALS: BP 134/79; PULSE 65; RESP 16; O2SAT 96
[2024-11-03 14:00] VITALS: BP 133/92; PULSE 73; RESP 21; O2SAT 96
[2024-11-03 14:16] LABS: Bacteria Urine None Seen /hpf; Hyaline Casts Urine 0-4 /lpf; RBC Urine 0-2 /hpf (0-2); Squamous Epithelial Cell Urine 0-5 /hpf (0-5); WBC Urine 0-5 /hpf (0-5)
[2024-11-03 14:24] LABS: Add Urine Microscopic? YES; Bilirubin Urine Neg (Negative); Blood Urine Neg (Negative); Glucose Urine UA Norm (Normal); Ketones Urine Negative (Negative); Leukocyte Esterase Urine Negative (Negative); Nitrate Urine Negative (Negative); Protein Urine Neg (Negative); Specific Gravity, Urine 1.015 (1.005-1.030); Urine Appearance Clear (CLEAR); Urine Color Yellow (Yellow); Urobilinogen Urine Neg (Negative); pH Urine 6 (5-7)
[2024-11-03 14:49] VITALS: BP 134/79; PULSE 77; RESP 20; O2SAT 98
[2024-11-03 15:25] VITALS: BP 128/78; PULSE 78; RESP 20; O2SAT 97
== END 2024-11-03 15:25 | disposition home or self-care (01) ==
PROVIDERS: Emergency Medicine; Emergency Provider Family Medicine
DX: S39.012A Strain of muscle, fascia and tendon of lower back, initial encounter (principal); X58.XXXA Exposure to other specified factors, initial encounter
CPT/HCPCS: 71045; 81001; 96372; 96374; 96375; 99284; J2270; J2360; J2919

== ENCOUNTER 2024-12-06 07:51 | Outpatient (RCR) | payer OTHER, SELFPAY | END 2024-12-30 23:59 | disposition home or self-care (01) | LOC: CR 07:51 | PROVIDERS: PCP Student in an Organized Health Care Education/Training Program; Visit Provider Student in an Organized Health Care Education/Training Program | DX: Z95.1 Presence of aortocoronary bypass graft (principal) | CPT/HCPCS: 93798 ==

== ENCOUNTER 2024-12-31 09:44 | Outpatient (RCR) | payer OTHER, SELFPAY | END 2025-01-29 23:59 | disposition home or self-care (01) | LOC: CR 09:44 | PROVIDERS: PCP Student in an Organized Health Care Education/Training Program; Visit Provider Student in an Organized Health Care Education/Training Program | DX: Z95.1 Presence of aortocoronary bypass graft (principal) | CPT/HCPCS: 93798 ==

== ENCOUNTER 2025-01-30 09:28 | Outpatient (RCR) | payer OTHER, SELFPAY | END 2025-03-01 23:59 | disposition home or self-care (01) | LOC: CR 09:28 | PROVIDERS: PCP Student in an Organized Health Care Education/Training Program; Visit Provider Student in an Organized Health Care Education/Training Program | DX: Z95.1 Presence of aortocoronary bypass graft (principal) | CPT/HCPCS: 93798 ==

== ENCOUNTER 2025-03-02 12:30 | Outpatient (RCR) | payer OTHER, SELFPAY | END 2025-04-01 23:59 | disposition home or self-care (01) | LOC: CR 12:30 | PROVIDERS: PCP Student in an Organized Health Care Education/Training Program; Visit Provider Student in an Organized Health Care Education/Training Program | DX: Z95.1 Presence of aortocoronary bypass graft (principal) | CPT/HCPCS: 93798 ==